=== PATIENT | female | born 1995 | race Caucasian/White ===

== ENCOUNTER 2016-10-27 07:43 | Outpatient (CLI) | payer OTHER ==
--- NOTE | 2016-10-27 09:18 | DIAGNOSTIC IMAGING REPORT ---
PROCEDURE: US ABDOMEN ULTRASOUND-COMPLETE INDICATION: ABD PAIN, initial encounter TECHNIQUE: Simons scale and color Doppler sonographic images of the abdomen were obtained. COMPARISON: Abdominal ultrasound 07/09/2015 FINDINGS: 1.2 cm mobile gallstone. There is no gallbladder wall thickening or pericholecystic fluid. Negative Manjarrez's sign. CBD measures 2.8 mm. Liver and spleen are normal. Pancreas not well visualized. Aorta and IVC are patent. Normal hepatopetal flow. Normal kidneys. Right kidney measures 10.6 cm and left kidney 9.9 cm. IMPRESSION: 1. 1.2 cm gallstone
== END 2016-10-27 23:00 ==
LOC: US SRH 07:43
DX: K80.20 Calculus of gallbladder without cholecystitis without obstruction (principal)

== ENCOUNTER 2016-10-30 21:25 | Emergency (ER) | payer OTHER ==
--- NOTE | 2016-10-30 22:42 | ED ORDER SUMMARY ---
..... Patient: MOISES CANALES OrderSheet [facility] VisitID: [id number] [place] [address] 20y, F Registration Date/Time: 10/30/2016 ORDER SHEET Weight: 78.9 kg Allergies: No Known Drug Allergy GENERAL ORDERS: CBC w Diff Urgent (21:40 10/30/2016 EKoroleva P.A.-C) (Ack 21:42 AMcQuoid ER Tech1) (22:07 JRomanelli R.N.) CMP Urgent (21:40 10/30/2016 EKoroleva P.A.-C) (Ack 21:42 AMcQuoid ER Tech1) (22:07 JRomanelli R.N.) Lipase Urgent (21:40 10/30/2016 EKoroleva P.A.-C) (Ack 21:42 AMcQuoid ER Tech1) (22:07 JRomanelli R.N.) MEDICATION ORDERS: IV FLUIDS: IV NS : initial bolus 1000 mL (1000 mL/hr), then 1000 mL/hr for X1 (NOW); Edwin (21:40 10/30/2016 EKoroleva P.A.-C) (22:08 JRomanelli R.N.) Dilaudid IV 0.5 mg (HIGH ALERT MEDICATION, NOW) (21:57 10/30/2016 EKoroleva P.A.-C) (22:13 JRomanelli R.N.) ORDER SHEET NOTES: [Electronically signed by Joanne Rhodes R.N. (23:06 10/30/2016)] [Electronically signed by Yumiko Garcia P.A.-C (23:12 10/30/2016)] [Electronically locked/signed by Joanne Rhodes R.N. (23:06 10/30/2016)]
--- NOTE | 2016-10-30 22:42 | ED ORDER SUMMARY ---
..... Patient: MOISES CANALES OrderSheet [facility] VisitID: [id number] [place] [address] 20y, F Registration Date/Time: 10/30/2016 ORDER SHEET Weight: 78.9 kg Allergies: No Known Drug Allergy GENERAL ORDERS: CBC w Diff Urgent (21:40 10/30/2016 EKoroleva P.A.-C) (Ack 21:42 AMcQuoid ER Tech1) (22:07 JRomanelli R.N.) CMP Urgent (21:40 10/30/2016 EKoroleva P.A.-C) (Ack 21:42 AMcQuoid ER Tech1) (22:07 JRomanelli R.N.) Lipase Urgent (21:40 10/30/2016 EKoroleva P.A.-C) (Ack 21:42 AMcQuoid ER Tech1) (22:07 JRomanelli R.N.) MEDICATION ORDERS: IV FLUIDS: IV NS : initial bolus 1000 mL (1000 mL/hr), then 1000 mL/hr for X1 (NOW); Edwin (21:40 10/30/2016 EKoroleva P.A.-C) (22:08 JRomanelli R.N.) Dilaudid IV 0.5 mg (HIGH ALERT MEDICATION, NOW) (21:57 10/30/2016 EKoroleva P.A.-C) (22:13 JRomanelli R.N.) ORDER SHEET NOTES: [Electronically signed by Joanne Rhodes R.N. (23:06 10/30/2016)] [Electronically signed by Yumiko Garcia P.A.-C (23:12 10/30/2016)] [Electronically locked/signed by Joanne Rhodes R.N. (23:06 10/30/2016)]
--- NOTE | 2016-10-30 22:42 | ED CLINICAL REPORT ---
Clinical Report - Physicians/Mid [facility] [address] [place] [address] 10/30/2016 21:26 Patient: MOISES CANALES Time Seen: 21:46 Oct 30 2016. Arrived- By private vehicle. Historian- patient. HISTORY OF PRESENT ILLNESS Chief Complaint: ABDOMINAL PAIN. It is described as located in the right upper quadrant and in the upper abdomen and radiating. This started today worsening for 3 days and is still present. The patient has had nausea. (20-year-old female, with pain over the last 2 days, recently seen at an outpatient facility, had ultrasound completed, with history of cholelithiasis, worsening of pain today, with nausea, no associated vomiting, diarrhea. No fevers. No urgency frequency or dysuria. Last [place]. Late September.). Similar symptoms previously: Recent medical care: The patient was seen recently by a health care provider ([facility]). REVIEW OF SYSTEMS No constipation, black stools, difficulty with urination, pain with urination or fever. No chest pain or chills. All systems otherwise negative, except as recorded above. PAST HISTORY Gallstones. SOCIAL HISTORY Never smoker. No alcohol use. ADDITIONAL NOTES The nursing notes have been reviewed. PHYSICAL EXAM Vital Signs: 10/30/2016 21:40 BP: 116/60. HR: 80. RR: 16. O2 saturation: 100%. Temp: 99.1 F. Pain level now: 9/10. Appearance: Alert. Appears to be in pain. Does not appear to be anxious. Patient in mild distress. Eyes: Eyes normal inspection. ENT: Nose normal. Pharynx normal. No pharyngeal erythema or tonsillar exudate. Neck: Normal inspection. No carotid bruit or lymphadenopathy. CVS: Normal heart rate and rhythm. Heart sounds normal. Respiratory: No respiratory distress. Breath sounds normal. No accessory muscle use or decreased air movement. Abdomen: Mild tenderness in the right upper quadrant. Bowel sounds normal. No organomegaly. No mass. Skin: Skin warm. Normal skin color. Neuro: Oriented X 3. LABS, X-RAYS, AND EKG Laboratory Tests: CBC w Diff: (OBEY: 10/30/2016 21:55) ( [facility] 10/30/2016 22:15) Final results Test Result Flag Units (Reference) WHITE BLOOD COUNT 9.2 K/uL (4.5-11.5) RED BLOOD COUNT 4.91 M/uL (4.00-5.20) HEMOGLOBIN 12.9 gm/dL (12.0-16.0) HEMATOCRIT 39.6 % (36.0-46.0) MEAN CELL VOLUME 81 fL (80-100) MEAN CORPUSCULAR HGB 26 pg (26-34) MEAN CORPUSCULAR HGB CONC 33 g/dL (31-37) RED CELL DISTRIBUTION WIDTH 14.3 % (11.6-14.8) PLATELET COUNT 365 K/uL (150-400) LYMPH % 36.6 % (25-40) MONO % 3.4 % (3-14) GRANULOCYTE % 60.0 (53-90) CMP: (OBEY: 10/30/2016 21:55) ( [facility] 10/30/2016 22:36) Final results Test Result Flag Units (Reference) GLUCOSE 111 H mg/dL (70-110) BUN 10 mg/dL (7-18) CREATININE 0.7 mg/dL (0.6-1.3) Estimated GFR >60 mL/min Estimated GFR- >60 mL/min Note: Persistent reduction over 3 months in eGFR<60 mL/min/1.73 m2 defines CKD. Patients with eGFR values>=60 mL/min/1.73 m2 may also have CKD if evidence ofpersistent proteinuria. Additional information may be foundat www.kidney.org. SODIUM 143 mmol/L (136-145) POTASSIUM 3.9 mmol/L (3.5-5.1) CHLORIDE 108 H mmol/L (98-107) CARBON DIOXIDE 23 mmol/L (21-32) CALCIUM 8.9 mg/dL (8.5-10.1) TOTAL PROTEIN 7.1 g/dL (6.4-8.2) ALBUMIN 3.5 g/dL (3.3-5.0) BILIRUBIN, TOTAL 0.2 mg/dL (0.0-1.0) ALKALINE PHOSPHATASE 114 U/L (46-116) AST (SGOT) 14 L U/L (15-37) ALT (SGPT) 26 U/L (12-78) LIPASE 124 U/L (73-393) . Note - Tests: (US prior result: IMPRESSION: 1. 1.2 cm gallstone Electronically Final signed by:Rogers Mcdermott MD 10/27/2016 9:18:15 AM). PROGRESS AND PROCEDURES Course of Care: During the time in the ED, the following DDX were considered: acute surgical abdomen, hemodynamic or metabolic instability, dehydration, gastroenteritis-viral, food borne, or bacterial, food intolerance, irritable or inflammatory bowel, infection, sepsis. 10/30/2016 23:01 BP: 102/55. HR: 88. RR: 14. O2 saturation: 100%. Temp: 97.9 F. Pain level now: 3/10. Patient is stable. Symptoms better. Patient/family counseled. Differential Diagnosis: I considered gastritis, gastroenteritis, acute appendicitis, mesenteric lymphadenitis, diverticulitis, colon cancer, small bowel obstruction, adhesions, gallbladder disease, liver disease, biliary colic, cholecystitis, cholelithiasis, hepatitis, pancreatitis, common bile duct obstruction, splenic injury, splenic rupture, intraabdominal abscess, ascites, spontaneous bacterial peritonitis, urinary tract infection, cystitis, prostatitis, ureterolithiasis, ovarian cyst, pelvic inflammatory disease and pelvic abscess as a possible cause of abdominal pain in this patient. Disposition: Discharged. CLINICAL IMPRESSION Acute abdominal pain of unknown cause. Biliary colic with a single gallstone. No cholecystitis. INSTRUCTIONS No strenuous activity. Rest. Drink plenty of fluids. Avoid fatty and fried/greasy foods. Prescription Medications: Hydrocodone/APAP 5mg / 325mg: take 1 orally every 6 hours as needed for pain. Dispense twelve (12). Zofran (orally disintegrating tablets) 4 mg: take 1 orally every 6 hours for 3 days as needed for nausea. Dispense ten (10). No refill. Substitution is permissible. Follow-up with: Ki Stanley MD, General Surgeon, , [facility], [address] [place] [id number] Follow up. Call for the next available appointment. (Electronically signed by Yumiko Garcia P.A.-C 10/30/2016 23:12)
--- NOTE | 2016-10-30 22:42 | ED NURSING NOTES ---
Clinical Report - Nurses [facility] [address] [place] [address] 10/30/2016 21:26 Patient: MOISES CANALES TRIAGE Triage time 21:40 Oct 30 2016. Acuity: LEVEL 3. Chief Complaint: ABDOMINAL PAIN, NAUSEA and VOMITING. Alert. ADRIANA COMA SCORE: Adriana Coma Scale: 15- eyes open spontaneously (4); best verbal response- oriented x 4 (5); best motor response- obeys commands (6). --21:49 Donato Bowling R.N. 21:40 10/30/16. BP: 116/60. HR: 80. RR: 16. O2 saturation: 100%. Temp: 99.1 F (oral). Pain level now: 06/03. --21:49 Donato Bowling R.N. Weight: 78.9 kg. Height/Length: 65 inches. BMI: 29. Growth Chart Percentile: Weight: 92.9%. Height/Length: 60.2%. --21:44 Donato Bowling R.N. Medications None. --21:45 Donato Bowling R.N. Medication/allergy information source: the patient. --21:49 Donato Bowling R.N. Allergies No Known Drug Allergy. --21:45 Donato Bowling R.N. History Arrived by private vehicle. Historian: patient. Accompanied by friend. Primary physician ([facility] ( Abdominal PainLUQ. Pt states that she had been worked up for gallstone 3 days ago via ultrasound. Pain returned and worsened today). This started today. Onset. (about 1 hour ago). She has had nausea, vomiting, diarrhea and abdominal pain. Treatment COLLECTION CLERK: None. PAST MEDICAL HX: Gallstones. Immunizations: up-to-date. Last normal menstrual period was 3 weeks ago. Denies current . SURGERY HX: No history of previous surgery. SOCIAL HX: Never smoker. No alcohol use or drug use. No recent travel. No infectious disease exposure. No known contact with a sick individual. ABUSE ASSESSMENT: No report of abuse. FALL RISK ASSESSMENT: Fall risk assessment completed. No fall risk identified. NUTRITIONAL RISK ASSESSMENT: The nutritional risk assessment revealed no deficiencies. FUNCTIONAL ASSESSMENT: Functional assessment: no impairments noted. LEARNING NEEDS ASSESSMENT: The learning needs assessment revealed no barriers. SKIN INTEGRITY ASSESSMENT: Skin integrity risk assessment completed. No skin integrity risk identified. --21:49 Donato Bowling R.N. PROBLEMS: Spotting, . Depression. Immunizations. Suicidal Ideation. --21:48 Donato Bowling R.N. Interventions ID band on patient. To treatment room. --21:49 Donato Bowling R.N. PHYSICAL ASSESSMENT Ambulatory to room. GENERAL / NEURO / PSYCH: Alert. Oriented X 4. Appears in pain. HEENT: Mucous membranes are pink. RESPIRATORY: Respirations not labored. CVS: Cardiac rhythm: (RRR). Capillary refill less than 2 seconds. GI / : Abdomen soft. Abdominal tenderness in the right upper quadrant. Bowel sounds within normal limits. SKIN: Skin is warm and dry. --21:50 Donato Bowling R.N. NURSING PROGRESS NOTES Reassurance given. Patient identifiers checked. Call light placed in reach. Side rails up x 1. Bed placed in lowest position. Brakes of bed on. Patient ready for evaluation- chart flagged and ED physician notified. --21:50 Donato Bowling R.N. 22:10/30/2016 Site #1 started via IV in the right forearm with an 20g angiocath, with aseptic technique and good blood return; one attempt. Blood drawn: rainbow set. Labeled in the presence of the patient and sent to the lab. --22:07 Donato Bowling R.N. 22:03 10/30/2016 Started bag #1 1000 mL IV Fluids IV NS (Saline); at 1000 mL/hr over 60 minute(s) via site #1. Allergies verified and confirmed 5 rights. IV patency established. IV site checked: no pain, redness, or swelling. IV flushed thoroughly pre- and post-medication administration. --22:08 Donato Bowling R.N. 22:10/30/2016 Dilaudid (HYDROmorphone HCl PF) IVP 0.5 mg given over 2 minute(s) via site #1. Allergies verified, confirmed 5 rights and sedative warning given. IV patency established. IV site checked: no pain, redness, or swelling. IV flushed thoroughly pre- and post-medication administration. IVP given by RN. --22:13 Donato Bowling R.N. 22:58 10/30/2016 IV Fluids IV NS Discontinued: bag #1 completed upon discharge. Total amount infused: 1000 mL. IV patency established. IV site checked: no pain, redness, or swelling. IV flushed thoroughly. --23:03 Joanne Rhodes R.N. 22:58 10/30/2016 Dilaudid IVP Response: no adverse reaction symptoms have improved the patient feels better. --23:03 Joanne Rhodes R.N. 23:04 10/30/2016 Site #1 removed upon discharge. Manual pressure and bandaid applied. --23:04 Joanne Rhodes R.N. DISPOSITION / DISCHARGE Departure time: 2305 PM. Condition at departure: improved and stable. The goals identified in the patient's plan of care were met. No learning barriers present. Discharge instructions provided and reviewed with the patient. Reviewed medication(s) side effects, precautions, dosing and course information. Prescription(s) given to the patient. Reviewed low fat diet and need for increased fluid intake. Activity restrictions (rest) reviewed. Work note given. Patient verbalized understanding. Written instructions provided in Malagasy. The patient was discharged by the physician review assistant. She was discharged home and accompanied by agriscience technology instructor. She left the Emergency Department ambulatory and via private vehicle. Concrete Truck Driver driving. FALL RISK ASSESSMENT: Fall risk assessment completed. No fall risk identified. --23:06 Joanne Rhodes R.N. 23:01 10/30/16. BP: 102/55 (regular adult cuff) taken on the left arm, via an automated monitor, while sitting. HR: 88. RR: 14. O2 saturation: 100% on room air. Temp: 97.9 F (oral). Pain level now: 12/01. --23:06 Joanne Rhodes R.N. Locked/Released at 10/30/2016 23:06 by Joanne Rhodes R.N.
--- NOTE | 2016-10-30 22:42 | ED NURSING NOTES ---
Clinical Report - Nurses [facility] [address] [place] [address] 10/30/2016 21:26 Patient: MOISES CANALES TRIAGE Triage time 21:40 Oct 30 2016. Acuity: LEVEL 3. Chief Complaint: ABDOMINAL PAIN, NAUSEA and VOMITING. Alert. ADRIANA COMA SCORE: Adriana Coma Scale: 15- eyes open spontaneously (4); best verbal response- oriented x 4 (5); best motor response- obeys commands (6). --21:49 Donato Bowling R.N. 21:40 10/30/16. BP: 116/60. HR: 80. RR: 16. O2 saturation: 100%. Temp: 99.1 F (oral). Pain level now: 06/03. --21:49 Donato Bowling R.N. Weight: 78.9 kg. Height/Length: 65 inches. BMI: 29. Growth Chart Percentile: Weight: 92.9%. Height/Length: 60.2%. --21:44 Donato Bowling R.N. Medications None. --21:45 Donato Bowling R.N. Medication/allergy information source: the patient. --21:49 Donato Bowling R.N. Allergies No Known Drug Allergy. --21:45 Donato Bowling R.N. History Arrived by private vehicle. Historian: patient. Accompanied by friend. Primary physician ([facility]). ( Abdominal PainLUQ. Pt states that she had been worked up for gallstone 3 days ago via ultrasound. Pain returned and worsened today). This started today. Onset. (about 1 hour ago). She has had nausea, vomiting, diarrhea and abdominal pain. Treatment GRINDER HARDBOARD: None. PAST MEDICAL HX: Gallstones. Immunizations: up-to-date. Last normal menstrual period was 3 weeks ago. Denies current . SURGERY HX: No history of previous surgery. SOCIAL HX: Never smoker. No alcohol use or drug use. No recent travel. No infectious disease exposure. No known contact with a sick individual. ABUSE ASSESSMENT: No report of abuse. FALL RISK ASSESSMENT: Fall risk assessment completed. No fall risk identified. NUTRITIONAL RISK ASSESSMENT: The nutritional risk assessment revealed no deficiencies. FUNCTIONAL ASSESSMENT: Functional assessment: no impairments noted. LEARNING NEEDS ASSESSMENT: The learning needs assessment revealed no barriers. SKIN INTEGRITY ASSESSMENT: Skin integrity risk assessment completed. No skin integrity risk identified. --21:49 Donato Bowling R.N. PROBLEMS: Spotting, . Depression. Immunizations. Suicidal Ideation. --21:48 Donato Bowling R.N. Interventions ID band on patient. To treatment room. --21:49 Donato Bowling R.N. PHYSICAL ASSESSMENT Ambulatory to room. GENERAL / NEURO / PSYCH: Alert. Oriented X 4. Appears in pain. HEENT: Mucous membranes are pink. RESPIRATORY: Respirations not labored. CVS: Cardiac rhythm: (RRR). Capillary refill less than 2 seconds. GI / : Abdomen soft. Abdominal tenderness in the right upper quadrant. Bowel sounds within normal limits. SKIN: Skin is warm and dry. --21:50 Donato Bowling R.N. NURSING PROGRESS NOTES Reassurance given. Patient identifiers checked. Call light placed in reach. Side rails up x 1. Bed placed in lowest position. Brakes of bed on. Patient ready for evaluation- chart flagged and ED physician notified. --21:50 Donato Bowling R.N. 22:10/30/2016 Site #1 started via IV in the right forearm with an 20g angiocath, with aseptic technique and good blood return; one attempt. Blood drawn: rainbow set. Labeled in the presence of the patient and sent to the lab. --22:07 Donato Bowling R.N. 22:03 10/30/2016 Started bag #1 1000 mL IV Fluids IV NS (Saline); at 1000 mL/hr over 60 minute(s) via site #1. Allergies verified and confirmed 5 rights. IV patency established. IV site checked: no pain, redness, or swelling. IV flushed thoroughly pre- and post-medication administration. --22:08 Donato Bowling R.N. 22:10/30/2016 Dilaudid (HYDROmorphone HCl PF) IVP 0.5 mg given over 2 minute(s) via site #1. Allergies verified, confirmed 5 rights and sedative warning given. IV patency established. IV site checked: no pain, redness, or swelling. IV flushed thoroughly pre- and post-medication administration. IVP given by RN. --22:13 Donato Bowling R.N. 22:58 10/30/2016 IV Fluids IV NS Discontinued: bag #1 completed upon discharge. Total amount infused: 1000 mL. IV patency established. IV site checked: no pain, redness, or swelling. IV flushed thoroughly. --23:03 Joanne Rhodes R.N. 22:58 10/30/2016 Dilaudid IVP Response: no adverse reaction symptoms have improved the patient feels better. --23:03 Joanne Rhodes R.N. 23:04 10/30/2016 Site #1 removed upon discharge. Manual pressure and bandaid applied. --23:04 Joanne Rhodes R.N. DISPOSITION / DISCHARGE Departure time: 2305 PM. Condition at departure: improved and stable. The goals identified in the patient's plan of care were met. No learning barriers present. Discharge instructions provided and reviewed with the patient. Reviewed medication(s) side effects, precautions, dosing and course information. Prescription(s) given to the patient. Reviewed low fat diet and need for increased fluid intake. Activity restrictions (rest) reviewed. Work note given. Patient verbalized understanding. Written instructions provided in Cypriot. The patient was discharged by the physician per diem physical therapist assistant. She was discharged home and accompanied by support merchandiser. She left the Emergency Department ambulatory and via private vehicle. Embossing Tool Setter driving. FALL RISK ASSESSMENT: Fall risk assessment completed. No fall risk identified. --23:06 Joanne Rhodes R.N. 23:01 10/30/16. BP: 102/55 (regular adult cuff) taken on the left arm, via an automated monitor, while sitting. HR: 88. RR: 14. O2 saturation: 100% on room air. Temp: 97.9 F (oral). Pain level now: 12/01. --23:06 Joanne Rhodes R.N. Locked/Released at 10/30/2016 23:06 by Joanne Rhodes R.N.
--- NOTE | 2016-10-30 22:42 | ED CLINICAL REPORT ---
Clinical Report - Physicians/Mid Levels [facility] [address] [place] [address] 10/30/2016 21:26 Patient: MOISES CANALES Time Seen: 21:46 Oct 30 2016. Arrived- By private vehicle. Historian- patient. HISTORY OF PRESENT ILLNESS Chief Complaint: ABDOMINAL PAIN. It is described as located in the right upper quadrant and in the upper abdomen and radiating. This started today worsening for 3 days and is still present. The patient has had nausea. (20-year-old female, with pain over the last 2 days, recently seen at an outpatient facility, had ultrasound completed, with history of cholelithiasis, worsening of pain today, with nausea, no associated vomiting, diarrhea. No fevers. No urgency frequency or dysuria. Last [place]. Late September.). Similar symptoms previously: Recent medical care: The patient was seen recently by a health care provider ([facility] on the and had us). REVIEW OF SYSTEMS No constipation, black stools, difficulty with urination, pain with urination or fever. No chest pain or chills. All systems otherwise negative, except as recorded above. PAST HISTORY Gallstones. SOCIAL HISTORY Never smoker. No alcohol use. ADDITIONAL NOTES The nursing notes have been reviewed. PHYSICAL EXAM Vital Signs: 10/30/2016 21:40 BP: 116/60. HR: 80. RR: 16. O2 saturation: 100%. Temp: 99.1 F. Pain level now: 9/10. Appearance: Alert. Appears to be in pain. Does not appear to be anxious. Patient in mild distress. Eyes: Eyes normal inspection. ENT: Nose normal. Pharynx normal. No pharyngeal erythema or tonsillar exudate. Neck: Normal inspection. No carotid bruit or lymphadenopathy. CVS: Normal heart rate and rhythm. Heart sounds normal. Respiratory: No respiratory distress. Breath sounds normal. No accessory muscle use or decreased air movement. Abdomen: Mild tenderness in the right upper quadrant. Bowel sounds normal. No organomegaly. No mass. Skin: Skin warm. Normal skin color. Neuro: Oriented X 3. LABS, X-RAYS, AND EKG Laboratory Tests: CBC w Diff: (OBEY: 10/30/2016 21:55) ( [facility] 10/30/2016 22:15) Final results Test Result Flag Units (Reference) WHITE BLOOD COUNT 9.2 K/uL (4.5-11.5) RED BLOOD COUNT 4.91 M/uL (4.00-5.20) HEMOGLOBIN 12.9 gm/dL (12.0-16.0) HEMATOCRIT 39.6 % (36.0-46.0) MEAN CELL VOLUME 81 fL (80-100) MEAN CORPUSCULAR HGB 26 pg (26-34) MEAN CORPUSCULAR HGB CONC 33 g/dL (31-37) RED CELL DISTRIBUTION WIDTH 14.3 % (11.6-14.8) PLATELET COUNT 365 K/uL (150-400) LYMPH % 36.6 % (25-40) MONO % 3.4 % (3-14) GRANULOCYTE % 60.0 (53-90) CMP: (OBEY: 10/30/2016 21:55) ( [facility] 10/30/2016 22:36) Final results Test Result Flag Units (Reference) GLUCOSE 111 H mg/dL (70-110) BUN 10 mg/dL (7-18) CREATININE 0.7 mg/dL (0.6-1.3) Estimated GFR >60 mL/min Estimated GFR- >60 mL/min Note: Persistent reduction over 3 months in eGFR<60 mL/min/1.73 m2 defines CKD. Patients with eGFR values>=60 mL/min/1.73 m2 may also have CKD if evidence ofpersistent proteinuria. Additional information may be foundat www.[email or web address].org. SODIUM 143 mmol/L (136-145) POTASSIUM 3.9 mmol/L (3.5-5.1) CHLORIDE 108 H mmol/L (98-107) CARBON DIOXIDE 23 mmol/L (21-32) CALCIUM 8.9 mg/dL (8.5-10.1) TOTAL PROTEIN 7.1 g/dL (6.4-8.2) ALBUMIN 3.5 g/dL (3.3-5.0) BILIRUBIN, TOTAL 0.2 mg/dL (0.0-1.0) ALKALINE PHOSPHATASE 114 U/L (46-116) AST (SGOT) 14 L U/L (15-37) ALT (SGPT) 26 U/L (12-78) LIPASE 124 U/L (73-393) . Note - Tests: (US prior result: IMPRESSION: 1. 1.2 cm gallstone Electronically Final signed by:Rogers Mcdermott MD 10/27/2016 9:18:15 AM). PROGRESS AND PROCEDURES Course of Care: During the time in the ED, the following DDX were considered: acute surgical abdomen, hemodynamic or metabolic instability, dehydration, gastroenteritis-viral, food borne, or bacterial, food intolerance, irritable or inflammatory bowel, infection, sepsis. 10/30/2016 23:01 BP: 102/55. HR: 88. RR: 14. O2 saturation: 100%. Temp: 97.9 F. Pain level now: 3/10. Patient is stable. Symptoms better. Patient/family counseled. Differential Diagnosis: I considered gastritis, gastroenteritis, acute appendicitis, mesenteric lymphadenitis, diverticulitis, colon cancer, small bowel obstruction, adhesions, gallbladder disease, liver disease, biliary colic, cholecystitis, cholelithiasis, hepatitis, pancreatitis, common bile duct obstruction, splenic injury, splenic rupture, intraabdominal abscess, ascites, spontaneous bacterial peritonitis, urinary tract infection, cystitis, prostatitis, ureterolithiasis, ovarian cyst, pelvic inflammatory disease and pelvic abscess as a possible cause of abdominal pain in this patient. Disposition: Discharged. CLINICAL IMPRESSION Acute abdominal pain of unknown cause. Biliary colic with a single gallstone. No cholecystitis. INSTRUCTIONS No strenuous activity. Rest. Drink plenty of fluids. Avoid fatty and fried/greasy foods. Prescription Medications: Hydrocodone/APAP 5mg / 325mg: take 1 orally every 6 hours as needed for pain. Dispense twelve (12). Zofran (orally disintegrating tablets) 4 mg: take 1 orally every 6 hours for 3 days as needed for nausea. Dispense ten (10). No refill. Substitution is permissible. Follow-up with: Ki Stanley MD, General Surgeon, , [facility], [address] [place] [id number] Follow up. Call for the next available appointment. (Electronically signed by Yumiko Garcia P.A.-C 10/30/2016 23:12)
--- NOTE | 2016-10-30 23:12 | ED DISCHARGE INSTRUCTIONS ---
Patient: MOISES CANALES General Instructions [facility] VisitID: [id number] [place], [place] [id number], F Registration Date/Time: 10/30/2016 Acute abdominal pain of unknown cause. Biliary colic with a single gallstone. No cholecystitis. INSTRUCTIONS No strenuous activity. Rest. Drink plenty of fluids. Avoid fatty and fried/greasy foods. Prescription Medications: Hydrocodone/APAP 5mg / 325mg: take 1 orally every 6 hours as needed for pain. Dispense twelve (12). Zofran (orally disintegrating tablets) 4 mg: take 1 orally every 6 hours for 3 days as needed for nausea. Dispense ten (10). No refill. Substitution is permissible. Follow-up with: Ki Stanley MD, General Surgeon, , [facility], [address] [place] [address] Follow up. Call for the next available appointment. ADDITIONAL INFORMATION Abdominal Pain,Uncertain Cause [Male] Based on your visit today, the exact cause of your abdominalpain is not clear. Your exam and tests do not indicate a dangerous cause at this time. However, the signs of a serious problem may take more time to appear. Although your evaluation was reassuring today, sometimes early in the course of many conditions, exam and lab tests can appear normal. Therefore, it is important for you to watch for any new symptoms or worsening of your condition. Causes It may not be obvious what caused your symptoms. Pay attention to things that do seem to make your symptoms worse or better and discuss this with your doctor when you follow up. Diagnosis The evaluation of abdominal pain in the emergency department may onlyrequire an exam by the doctor or it may include blood, urine or imaging studies, depending on many factors. Sometimes exams and tests can identify a cause but in many cases, a clear cause is not found. Further testing at follow up visits may help to suggest a clear diagnosis. Home Care Rest as much as possible until your next exam. Try to avoid any medications (unless otherwise directed by your doctor), foods, activities, or other factors that you may have contributed to your symptoms. Try to eat foods that you know that you have tolerated well in the past. Certain diets may be recommended for some conditions that cause abdominal pain. However, since the cause of your symptoms may not be clear, discuss your diet more with your primary care provider or specialist for further recommendations. Eating several small meals per day as opposed to 2 or 3 larger meals may help. Monitor closely for anything that may make your symptoms worse or better. Pay close attention to symptoms below that may indicate worsening of your condition. Follow Up and Precautions See your doctoras instructed or sooneror if your symptoms are not improving.In some cases, you may need more testing. When to Seek Medical Attention Contact your doctor or see medical attention ifany of the following occur: Pain is becoming worse You are unable to take your medications due to excessive vomiting Swelling of the abdomen Fever of 100.4F (38C) or higher, or as directed by your health care provider Blood in vomit or bowel movements (dark red or black color) Jaundice (yellow color of eyes and skin) New onset of weakness, dizziness or fainting New onset of chest, arm, back, neck or jaw pain GallstonesWith Biliary Colic [Confirmed Dx] The abdominal pain that you have today is due to spasm of the gallbladder. The gallbladder is a small sac under the liver which stores and releases bile. Bile is a fluid that aids in the digestion of fat. A gallstone may form inside the gallbladder and block the flow of bile fluid. This causes mild to severe crampy pain in the mid or right upper abdomen with nausea and vomiting. Home Care: Rest in bed and follow a clear liquid diet until feeling better. If pain or nausea medicine was given to help with your symptoms, take these as directed. Fat in your diet makes the gallbladder contract and may cause increased pain. Therefore, avoid fat in your diet over the next two days and follow a low-fat diet after that. If you are overweight, a low-fat diet will also help you lose weight. Follow Up with your doctor. There is a 50% chance that you will have another episode of pain from your gallstones during the next 2 years. Removal of the gallbladder is the treatment of choice to prevent this. Schedule an appointment with your own doctor during the next week to discuss the treatment options. Get Prompt Medical Attention if any of the following occur: Pain gets worse or moves to the right lower abdomen Repeated vomiting Swelling of the abdomen Pain lasts over 6 hours Fever of 100.4F (38C) or higher, or as directed by your healthcare provider Weakness, dizziness or fainting Dark urine or light colored stools Yellow color of the skin or eyes Chest, arm, back, neck or jaw pain Hydrocodone Bitartrate, Acetaminophen Oral tablet What is this medicine? ACETAMINOPHEN; HYDROCODONE (a set a ARLINE erin fen; catie droe KOE done) is a pain reliever. It is used to treat mild to moderate pain. How should I use this medicine? Take this medicine by mouth. Swallow it with a full glass of water. Follow the directions on the prescription label. If the medicine upsets your stomach, take the medicine with food or milk. Do not take more than you are told to take. Talk to your dental detail representative regarding the use of this medicine in children. This medicine is not approved for use in children. What side effects may I notice from receiving this medicine? Side effects that you should report to your doctor or health palliative care physician as soon as possible: allergic reactions like skin rash, itching or hives, swelling of the face, lips, or tongue breathing problems confusion feeling faint or lightheaded, falls stomach pain yellowing of the eyes or skin Side effects that usually do not require medical attention (report to your doctor or health palliative care physician if they continue or are bothersome): nausea, vomiting stomach upset What may interact with this medicine? alcohol antihistamines isoniazid medicines for depression, anxiety, or psychotic disturbances medicines for sleep muscle relaxants naltrexone narcotic medicines (opiates) for pain phenobarbital ritonavir tramadol What if I miss a dose? If you miss a dose, take it as soon as you can. If it is almost time for your next dose, take only that dose. Do not take double or extra doses. Where should I keep my medicine? Keep out of the reach of children. This medicine can be abused. Keep your medicine in a safe place to protect it from theft. Do not share this medicine with anyone. Selling or giving away this medicine is dangerous and against the law. Store at room temperature between 15 and 30 degrees C (59 and 86 degrees F). Protect from light. Keep container tightly closed. Throw away any unused medicine after the expiration date. Discard unused medicine and used packaging carefully. Pets and children can be harmed if they find used or lost packages. What should I tell my health care provider before I take this medicine? They need to know if you have any of these conditions: brain tumor Crohn's disease, inflammatory bowel disease, or ulcerative colitis drink more than 3 alcohol-containing drinks per day drug abuse or addiction head injury heart or circulation problems kidney disease or problems going to the bathroom liver disease lung disease, asthma, or breathing problems an unusual or allergic reaction to acetaminophen, hydrocodone, other opioid analgesics, other medicines, foods, dyes, or preservatives or trying to get breast-feeding What should I watch for while using this medicine? Tell your doctor or health palliative care physician if your pain does not go away, if it gets worse, or if you have new or a different type of pain. You may develop tolerance to the medicine. Tolerance means that you will need a higher dose of the medicine for pain relief. Tolerance is normal and is expected if you take the medicine for a long time. Do not suddenly stop taking your medicine because you may develop a severe reaction. Your body becomes used to the medicine. This does NOT mean you are addicted. Addiction is a behavior related to getting and using a drug for a non-medical reason. If you have pain, you have a medical reason to take pain medicine. Your doctor will tell you how much medicine to take. If your doctor wants you to stop the medicine, the dose will be slowly lowered over time to avoid any side effects. You may get drowsy or dizzy when you first start taking the medicine or change doses. Do not drive, use machinery, or do anything that may be dangerous until you know how the medicine affects you. Stand or sit up slowly. There are different types of narcotic medicines (opiates) for pain. If you take more than one type at the same time, you may have more side effects. Give your health care provider a list of all medicines you use. Your doctor will tell you how much medicine to take. Do not take more medicine than directed. Call emergency for help if you have problems breathing. The medicine will cause constipation. Try to have a bowel movement at least every 2 to 3 days. If you do not have a bowel movement for 3 days, call your doctor or health palliative care physician. Too much acetaminophen can be very dangerous. Do not take Tylenol (acetaminophen) or medicines that contain acetaminophen with this medicine. Many non-prescription medicines contain acetaminophen. Always read the labels carefully. Ondansetron Hydrochloride Oral tablet What is this medicine? ONDANSETRON (on YANCY se yasmani) is used to treat nausea and vomiting caused by chemotherapy. It is also used to prevent or treat nausea and vomiting after surgery. How should I use this medicine? Take this medicine by mouth with a glass of water. Follow the directions on your prescription label. Take your doses at regular intervals. Do not take your medicine more often than directed. Talk to your dental detail representative regarding the use of this medicine in children. Special care may be needed. What side effects may I notice from receiving this medicine? Side effects that you should report to your doctor or health palliative care physician as soon as possible: allergic reactions like skin rash, itching or hives, swelling of the face, lips or tongue breathing problems dizziness fast or irregular heartbeat feeling faint or lightheaded, falls fever and chills swelling of the hands or feet tightness in the chest Side effects that usually do not require medical attention (report to your doctor or health palliative care physician if they continue or are bothersome): constipation or diarrhea headache What may interact with this medicine? Do not take this medicine with any of the following medications: -apomorphine -cisapride -dofetilide -dronedarone -pimozide -thioridazine -ziprasidone This medicine may also interact with the following medications: -carbamazepine -phenytoin -rifampicin -tramadol -other medicines that prolong the QT interval (cause an abnormal heart rhythm) What if I miss a dose? If you miss a dose, take it as soon as you can. If it is almost time for your next dose, take only that dose. Do not take double or extra doses. Where should I keep my medicine? Keep out of the reach of children. Store between 2 and 30 degrees C (36 and 86 degrees F). Throw away any unused medicine after the expiration date. What should I tell my health care provider before I take this medicine? They need to know if you have any of these conditions: heart disease history of irregular heartbeat liver disease low levels of magnesium or potassium in the blood an unusual or allergic reaction to ondansetron, granisetron, other medicines, foods, dyes, or preservatives or trying to get breast-feeding What should I watch for while using this medicine? Check with your doctor or health palliative care physician right away if you have any sign of an allergic reaction. You have been given the following additional information: Abdominal Pain, Unknown Cause, (Male) Biliary Colic With Gallstone (Confirmed) Hydrocodone Bitartrate, Acetaminophen Oral tablet Ondansetron Hydrochloride Oral tablet No strenuous activity. Rest. (Electronically signed by Yumiko Garcia P.A.-C 10/30/2016 23:12)
--- NOTE | 2016-10-30 23:12 | ED DISCHARGE INSTRUCTIONS ---
Patient: MOISES CANALES General Instructions [facility] VisitID: [id number] [place], [place] [id number] 20y, F Registration Date/Time: 10/30/2016 Acute abdominal pain of unknown cause. Biliary colic with a single gallstone. No cholecystitis. INSTRUCTIONS No strenuous activity. Rest. Drink plenty of fluids. Avoid fatty and fried/greasy foods. Prescription Medications: Hydrocodone/APAP 5mg / 325mg: take 1 orally every 6 hours as needed for pain. Dispense twelve (12). Zofran (orally disintegrating tablets) 4 mg: take 1 orally every 6 hours for 3 days as needed for nausea. Dispense ten (10). No refill. Substitution is permissible. Follow-up with: Ki Stanley MD, General Surgeon, , [facility], [address] [place] [address] Follow up. Call for the next available appointment. ADDITIONAL INFORMATION Abdominal Pain,Uncertain Cause [Male] Based on your visit today, the exact cause of your abdominalpain is not clear. Your exam and tests do not indicate a dangerous cause at this time. However, the signs of a serious problem may take more time to appear. Although your evaluation was reassuring today, sometimes early in the course of many conditions, exam and lab tests can appear normal. Therefore, it is important for you to watch for any new symptoms or worsening of your condition. Causes It may not be obvious what caused your symptoms. Pay attention to things that do seem to make your symptoms worse or better and discuss this with your doctor when you follow up. Diagnosis The evaluation of abdominal pain in the emergency department may onlyrequire an exam by the doctor or it may include blood, urine or imaging studies, depending on many factors. Sometimes exams and tests can identify a cause but in many cases, a clear cause is not found. Further testing at follow up visits may help to suggest a clear diagnosis. Home Care Rest as much as possible until your next exam. Try to avoid any medications (unless otherwise directed by your doctor), foods, activities, or other factors that you may have contributed to your symptoms. Try to eat foods that you know that you have tolerated well in the past. Certain diets may be recommended for some conditions that cause abdominal pain. However, since the cause of your symptoms may not be clear, discuss your diet more with your primary care provider or specialist for further recommendations. Eating several small meals per day as opposed to 2 or 3 larger meals may help. Monitor closely for anything that may make your symptoms worse or better. Pay close attention to symptoms below that may indicate worsening of your condition. Follow Up and Precautions See your doctoras instructed or sooneror if your symptoms are not improving.In some cases, you may need more testing. When to Seek Medical Attention Contact your doctor or see medical attention ifany of the following occur: Pain is becoming worse You are unable to take your medications due to excessive vomiting Swelling of the abdomen Fever of 100.4F (38C) or higher, or as directed by your health care provider Blood in vomit or bowel movements (dark red or black color) Jaundice (yellow color of eyes and skin) New onset of weakness, dizziness or fainting New onset of chest, arm, back, neck or jaw pain GallstonesWith Biliary Colic [Confirmed Dx] The abdominal pain that you have today is due to spasm of the gallbladder. The gallbladder is a small sac under the liver which stores and releases bile. Bile is a fluid that aids in the digestion of fat. A gallstone may form inside the gallbladder and block the flow of bile fluid. This causes mild to severe crampy pain in the mid or right upper abdomen with nausea and vomiting. Home Care: Rest in bed and follow a clear liquid diet until feeling better. If pain or nausea medicine was given to help with your symptoms, take these as directed. Fat in your diet makes the gallbladder contract and may cause increased pain. Therefore, avoid fat in your diet over the next two days and follow a low-fat diet after that. If you are overweight, a low-fat diet will also help you lose weight. Follow Up with your doctor. There is a 50% chance that you will have another episode of pain from your gallstones during the next 2 years. Removal of the gallbladder is the treatment of choice to prevent this. Schedule an appointment with your own doctor during the next week to discuss the treatment options. Get Prompt Medical Attention if any of the following occur: Pain gets worse or moves to the right lower abdomen Repeated vomiting Swelling of the abdomen Pain lasts over 6 hours Fever of 100.4F (38C) or higher, or as directed by your healthcare provider Weakness, dizziness or fainting Dark urine or light colored stools Yellow color of the skin or eyes Chest, arm, back, neck or jaw pain Hydrocodone Bitartrate, Acetaminophen Oral tablet What is this medicine? ACETAMINOPHEN; HYDROCODONE (a set a ARLINE erin fen; catie droe KOE done) is a pain reliever. It is used to treat mild to moderate pain. How should I use this medicine? Take this medicine by mouth. Swallow it with a full glass of water. Follow the directions on the prescription label. If the medicine upsets your stomach, take the medicine with food or milk. Do not take more than you are told to take. Talk to your goodwill ambassador regarding the use of this medicine in children. This medicine is not approved for use in children. What side effects may I notice from receiving this medicine? Side effects that you should report to your doctor or health day care worker as soon as possible: allergic reactions like skin rash, itching or hives, swelling of the face, lips, or tongue breathing problems confusion feeling faint or lightheaded, falls stomach pain yellowing of the eyes or skin Side effects that usually do not require medical attention (report to your doctor or health day care worker if they continue or are bothersome): nausea, vomiting stomach upset What may interact with this medicine? alcohol antihistamines isoniazid medicines for depression, anxiety, or psychotic disturbances medicines for sleep muscle relaxants naltrexone narcotic medicines (opiates) for pain phenobarbital ritonavir tramadol What if I miss a dose? If you miss a dose, take it as soon as you can. If it is almost time for your next dose, take only that dose. Do not take double or extra doses. Where should I keep my medicine? Keep out of the reach of children. This medicine can be abused. Keep your medicine in a safe place to protect it from theft. Do not share this medicine with anyone. Selling or giving away this medicine is dangerous and against the law. Store at room temperature between 15 and 30 degrees C (59 and 86 degrees F). Protect from light. Keep container tightly closed. Throw away any unused medicine after the expiration date. Discard unused medicine and used packaging carefully. Pets and children can be harmed if they find used or lost packages. What should I tell my health care provider before I take this medicine? They need to know if you have any of these conditions: brain tumor Crohn's disease, inflammatory bowel disease, or ulcerative colitis drink more than 3 alcohol-containing drinks per day drug abuse or addiction head injury heart or circulation problems kidney disease or problems going to the bathroom liver disease lung disease, asthma, or breathing problems an unusual or allergic reaction to acetaminophen, hydrocodone, other opioid analgesics, other medicines, foods, dyes, or preservatives or trying to get breast-feeding What should I watch for while using this medicine? Tell your doctor or health day care worker if your pain does not go away, if it gets worse, or if you have new or a different type of pain. You may develop tolerance to the medicine. Tolerance means that you will need a higher dose of the medicine for pain relief. Tolerance is normal and is expected if you take the medicine for a long time. Do not suddenly stop taking your medicine because you may develop a severe reaction. Your body becomes used to the medicine. This does NOT mean you are addicted. Addiction is a behavior related to getting and using a drug for a non-medical reason. If you have pain, you have a medical reason to take pain medicine. Your doctor will tell you how much medicine to take. If your doctor wants you to stop the medicine, the dose will be slowly lowered over time to avoid any side effects. You may get drowsy or dizzy when you first start taking the medicine or change doses. Do not drive, use machinery, or do anything that may be dangerous until you know how the medicine affects you. Stand or sit up slowly. There are different types of narcotic medicines (opiates) for pain. If you take more than one type at the same time, you may have more side effects. Give your health care provider a list of all medicines you use. Your doctor will tell you how much medicine to take. Do not take more medicine than directed. Call emergency for help if you have problems breathing. The medicine will cause constipation. Try to have a bowel movement at least every 2 to 3 days. If you do not have a bowel movement for 3 days, call your doctor or health day care worker. Too much acetaminophen can be very dangerous. Do not take Tylenol (acetaminophen) or medicines that contain acetaminophen with this medicine. Many non-prescription medicines contain acetaminophen. Always read the labels carefully. Ondansetron Hydrochloride Oral tablet What is this medicine? ONDANSETRON (on YANCY se yasmani) is used to treat nausea and vomiting caused by chemotherapy. It is also used to prevent or treat nausea and vomiting after surgery. How should I use this medicine? Take this medicine by mouth with a glass of water. Follow the directions on your prescription label. Take your doses at regular intervals. Do not take your medicine more often than directed. Talk to your goodwill ambassador regarding the use of this medicine in children. Special care may be needed. What side effects may I notice from receiving this medicine? Side effects that you should report to your doctor or health day care worker as soon as possible: allergic reactions like skin rash, itching or hives, swelling of the face, lips or tongue breathing problems dizziness fast or irregular heartbeat feeling faint or lightheaded, falls fever and chills swelling of the hands or feet tightness in the chest Side effects that usually do not require medical attention (report to your doctor or health day care worker if they continue or are bothersome): constipation or diarrhea headache What may interact with this medicine? Do not take this medicine with any of the following medications: -apomorphine -cisapride -dofetilide -dronedarone -pimozide -thioridazine -ziprasidone This medicine may also interact with the following medications: -carbamazepine -phenytoin -rifampicin -tramadol -other medicines that prolong the QT interval (cause an abnormal heart rhythm) What if I miss a dose? If you miss a dose, take it as soon as you can. If it is almost time for your next dose, take only that dose. Do not take double or extra doses. Where should I keep my medicine? Keep out of the reach of children. Store between 2 and 30 degrees C (36 and 86 degrees F). Throw away any unused medicine after the expiration date. What should I tell my health care provider before I take this medicine? They need to know if you have any of these conditions: heart disease history of irregular heartbeat liver disease low levels of magnesium or potassium in the blood an unusual or allergic reaction to ondansetron, granisetron, other medicines, foods, dyes, or preservatives or trying to get breast-feeding What should I watch for while using this medicine? Check with your doctor or health day care worker right away if you have any sign of an allergic reaction. You have been given the following additional information: Abdominal Pain, Unknown Cause, (Male) Biliary Colic With Gallstone (Confirmed) Hydrocodone Bitartrate, Acetaminophen Oral tablet Ondansetron Hydrochloride Oral tablet No strenuous activity. Rest. (Electronically signed by Yumiko Garcia P.A.-C 10/30/2016 23:12)
--- NOTE | 2016-10-30 23:12 | ED MED RECONCILIATION SUMMARY ---
Patient: MOISES CANALES Medication Reconciliation Report [facility] VisitID: [id number] [place] [address] 20y, F Registration Date/Time: 10/30/2016 Weight: 78.9 kg Height/Length: 65 in. BMI: 29.0 ALLERGIES: No Known Drug Allergy The patient's Home Medications are listed below: NONE. The source(s) of the original Home Medication information: patient The following Medications were given to the patient in the Emergency Department: IV NS IV Fluids bolus 0, then 1000 mL/hr, administered: 10/30/2016 10:03:00 PM Dilaudid [IVP] IVP 0.5 mg, administered: 10/30/2016 10:08:00 PM The following Medications were prescribed to the patient: Hydrocodone/APAP 5mg / 325mg: take 1 orally every 6 hours as needed for pain. Dispense twelve (12). -- Yumiko Garcia P.AJessica Zofran (orally disintegrating tablets) 4 mg: take 1 orally every 6 hours for 3 days as needed for nausea. Dispense ten (10). No refill. Substitution is permissible. -- Yumiko Garcia, P.ADevon-Zachary
--- NOTE | 2016-10-30 23:12 | ED MAR SUMMARY ---
..... Medication Administration Record [facility] [address] [place] [address] Patient: MOISES CANALES Visit ID: [id number] 20y, F Weight: 78.9 kg Height/Length: 65 in BMI: 29 ALLERGIES: No Known Drug Allergy Start 22:03 10/30/2016 Donato Bowling RDevonN., Stop 22:58 10/30/2016 Joanne Rhodes RJerson. Medication Administered: IV NS (SALINE), Dose: IV Fluids over 60 minute(s), Rate: 1000 mL/hr, Dispensed: 1000 mL bag, Site: #1 right forearm. Medication Ordered: IV NS : initial bolus 1000 mL (1000 mL/hr), then 1000 mL/hr for X1 (NOW); Edwin. Given 22:08 10/30/2016 Donato Bowling, R.N. Medication Administered: DILAUDID [IVP] (HYDROMORPHONE HCL PF), Dose: 0.5 mg IVP over 2 minute(s), Site: #1 right forearm. Medication Ordered: Dilaudid IV 0.5 mg (HIGH ALERT MEDICATION, NOW).
--- NOTE | 2016-10-30 23:12 | ED MAR SUMMARY ---
..... Medication Administration Record [facility] [address] [place] [address] Patient: MOISES CANALES Visit ID: [id number] 20y, F Weight: 78.9 kg Height/Length: 65 in BMI: 29 ALLERGIES: No Known Drug Allergy Start 22:03 10/30/2016 Donato Bowling RDevonN., Stop 22:58 10/30/2016 Joanne Rhodes RJerson. Medication Administered: IV NS (SALINE), Dose: IV Fluids over 60 minute(s), Rate: 1000 mL/hr, Dispensed: 1000 mL bag, Site: #1 right forearm. Medication Ordered: IV NS : initial bolus 1000 mL (1000 mL/hr), then 1000 mL/hr for X1 (NOW); Edwin. Given 22:08 10/30/2016 Donato Bowling, R.N. Medication Administered: DILAUDID [IVP] (HYDROMORPHONE HCL PF), Dose: 0.5 mg IVP over 2 minute(s), Site: #1 right forearm. Medication Ordered: Dilaudid IV 0.5 mg (HIGH ALERT MEDICATION, NOW).
--- NOTE | 2016-10-30 23:12 | ED MED RECONCILIATION SUMMARY ---
Patient: MOISES CANALES Medication Reconciliation Report [facility] VisitID: [id number] [place] [address] 20y, F Registration Date/Time: 10/30/2016 Weight: 78.9 kg Height/Length: 65 in. BMI: 29.0 ALLERGIES: No Known Drug Allergy The patient's Home Medications are listed below: NONE. The source(s) of the original Home Medication information: patient The following Medications were given to the patient in the Emergency Department: IV NS IV Fluids bolus 0, then 1000 mL/hr, administered: 10/30/2016 10:03:00 PM Dilaudid [IVP] IVP 0.5 mg, administered: 10/30/2016 10:08:00 PM The following Medications were prescribed to the patient: Hydrocodone/APAP 5mg / 325mg: take 1 orally every 6 hours as needed for pain. Dispense twelve (12). -- Yumiko Garcia P.AJessica Zofran (orally disintegrating tablets) 4 mg: take 1 orally every 6 hours for 3 days as needed for nausea. Dispense ten (10). No refill. Substitution is permissible. -- Yumiko Garcia, P.ADevon-Zachary
== END 2016-10-30 23:05 | disposition home or self-care (01) ==
LOC: ED SRH 21:25
DX: R10.10 Upper abdominal pain, unspecified (principal); K80.51 Calculus of bile duct without cholangitis or cholecystitis with obstruction
CPT/HCPCS: 90100; 92235; 95059

== ENCOUNTER 2016-11-07 23:06 | Emergency (ER) | payer OTHER ==
--- NOTE | 2016-11-08 01:10 | ED NURSING NOTES ---
Clinical Report - Nurses [facility] [address] [place] [address] 11/07/2016 23:06 Patient: MOISES CANALES TRIAGE Triage time 23:15 Nov 07 2016. Acuity: LEVEL 3. Chief Complaint: ABDOMINAL PAIN. 23:19 11/07/16. SEPSIS SCREEN: Sepsis Screen: negative. Negative (no infection suspected/documented). ADRIANA COMA SCORE: Adriana Coma Scale: 15- eyes open spontaneously (4); best verbal response- oriented x 4 (5); best motor response- obeys commands (6). --23:19 Yolanda Faye R.N. 23:15 11/07/16. BP: 120/69. HR: 79. RR: 15. O2 saturation: 98%. Temp: 98.8 F. Pain level now: 07/03. --23:19 Yolanda Faye R.N. Weight: 77.1 kg stated. Height/Length: 65 inches Per Patient. BMI: 28.3. Growth Chart Percentile: Weight: 91.6%. Height/Length: 60.2%. --23:15 Yolanda Faye R.N. Medications None. --23:16 Yolanda Faye R.N. Medication/allergy information source: the patient. --23:19 Yolanda Faye R.N. Allergies No Known Drug Allergy. --23:16 Yolanda Faye R.N. History Arrived by private vehicle. Historian: patient. Accompanied by friend. Onset. (5 days ago). ( walking and smell of food make it worse, colicky in nature, vomiting today x 2). No fever, weakness, cough, difficulty breathing or skin rash. Denies muscle aches. 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 PAST MEDICAL HX: Last normal menstrual period- Oct 13. SOCIAL HX: Never smoker. No alcohol use or drug use. No infectious disease exposure. ABUSE ASSESSMENT: No report of abuse. SELF HARM ASSESSMENT: A self harm assessment was performed. The patient answered "no" to the question "Have you recently felt down, depressed, or hopeless?", "Have you noticed less interest or pleasure in doing things?", "Do you have thoughts of harming or killing yourself?", "Are you here because you tried to hurt yourself?", "Have you ever tried to hurt yourself before today?", "Have you recently had thoughts about harming or killing others?" and "Do you have any dangerous items in your possession?". NUTRITIONAL RISK ASSESSMENT: The nutritional risk assessment revealed no deficiencies. FUNCTIONAL ASSESSMENT: Functional assessment: no impairments noted. LEARNING NEEDS ASSESSMENT: The learning needs assessment revealed no barriers. SKIN INTEGRITY ASSESSMENT: Skin integrity risk assessment completed. No skin integrity risk identified. --23:19 Yolanda Faye R.N. PROBLEMS: Biliary Colic. Abdominal Pain. Gallstone(s). --23:17 Yolanda Faye R.N. ADDITIONAL SURGERIES: no known surgeries. Interventions ID band on patient. --23:19 Yolanda Faye R.N. PHYSICAL ASSESSMENT 23:37 11/07/16. GENERAL / NEURO / PSYCH: Alert. Oriented X 4. HEENT: Pupils equal, round and reactive to light. No facial asymmetry noted. Mucous membranes are pink. RESPIRATORY: Respirations not labored. Breath sounds within normal limits. CVS: Pulses within normal limits. GI / : Abdomen soft and normal bowel sounds. Abdominal tenderness in the right upper quadrant. No guarding or rebound tenderness. SKIN: Skin intact. Skin is warm and dry. Normal skin turgor. --23:37 Yolanda Faye R.N. NURSING PROGRESS NOTES 23:15 11/07/16. The initial plan of care for this patient includes an assessment with efforts to address impairment of the gastrointestinal system. This plan of care was discussed with the patient. Reassurance given. Two patient identifiers checked. Call light placed in reach. Side rails up x 1. Bed placed in lowest position. Brakes of bed on. Patient ready for evaluation. --23:38 Yolanda Faye R.N. ( pt ambulates to restroom. reminded of need for urine sample. pt states understanding). --23:58 Jazzmine De Jesus R.N. 23:55 11/07/2016 Site #1 started via IV in the right antecubital space with an 18g angiocath, with aseptic technique and good blood return; one attempt. Blood drawn: rainbow set. Labeled in the presence of the patient and sent to the lab. Saline lock flushed with 10 mL saline. --23:58 Yolanda Faye R.N. 23:55 11/07/2016 Started bag #1 1000 mL IV Fluids IV NS (Saline); at 1000 mL/hr over 1 hour(s) via site #1 via IV pump. Allergies verified and confirmed 5 rights. IV patency established. IV site checked: no pain, redness, or swelling. IV flushed thoroughly pre- and post-medication administration. --23:59 Yolanda Faye R.N. 23:57 11/07/2016 Zofran (Ondansetron HCl) IVP 4 mg given over 1 minute(s) via site #1. Allergies verified and confirmed 5 rights. IV patency established. IV site checked: no pain, redness, or swelling. IV flushed thoroughly pre- and post-medication administration. IVP given by RN. --23:59 Yolanda Faye R.N. 00:11/08/16. Patient ID band checked for patient name and birthdate: patient confirmed. Instructions provided to collect clean catch urine and patient verbalized understanding. Clean catch urine collected with return of yellow-colored clear urine; sample sent to lab for urinalysis and HCG. Specimen labeled in the presence of the patient. --00:10 Yolanda Faye R.N. 00:11/08/2016 IV Fluids IV NS Discontinued: completed. Total amount infused: 1000 mL. IV patency established. IV site checked: no pain, redness, or swelling. IV flushed thoroughly. --01:23 Yolanda Faye R.N. 01:23 11/08/2016 Site #1 removed upon discharge. Catheter intact. Bandaid applied. --01:23 Yolanda Faye R.N. DISPOSITION / DISCHARGE 01:24 11/08/16. Departure time: 01:24 Nov 08 2016. Condition at departure: improved and stable. The goals identified in the patient's plan of care were met. No learning barriers present. Reviewed medication(s) side effects, precautions, dosing and course information. Prescription(s) given to the patient. Reviewed referral to a primary care physician for followup. Summary of care provided to patient via paper. Patient verbalized understanding. Written instructions provided in Sinhala. The patient was discharged home and accompanied by practical nurse clinical coordinator. She left the Emergency Department ambulatory and via private vehicle. Account Underwriter driving. --01:24 Yolanda Faye R.N. 01:25 11/08/16. BP: 124/78. HR: 88. RR: 16. O2 saturation: 100%. Temp: 98.3 F. Pain level now 5/10. --01:25 Yolanda Faye R.N. Locked/Released at 11/08/2016 1:25 by Yolanda Faye R.N.
--- NOTE | 2016-11-08 01:10 | ED CLINICAL REPORT ---
Clinical Report - Physicians/Mid Levels [facility] [address] [place] [address] 11/07/2016 23:06 Patient: MOISES CANALES Time Seen: 23:12; initial patient contact. Arrived- By private vehicle. Historian- patient. HISTORY OF PRESENT ILLNESS Chief Complaint: ABDOMINAL PAIN. At its maximum, severity described as moderate. When seen in the E.D., severity described as moderate. Modifying factors- worsened by food. Not relieved by anything. It is described as cramping. No radiation. It is described as located in the right upper quadrant. This started about 1 week ago and is still present. The patient has had nausea and vomiting. No loss of appetite or diarrhea. No additional abdominal pain. No recent travel. Similar symptoms previously: Once. Recent medical care: The patient was seen recently at this facility in the emergency department. Seen for similar symptoms. Evaluation/treatment: sonogram, CBC, electrolytes, amylase and LFT's. Diagnosis: gall stones. REVIEW OF SYSTEMS No constipation, pain with urination, urinary frequency, fever or chills. All systems otherwise negative, except as recorded above. PAST HISTORY Biliary Colic. Abdominal Pain. Gallstone(s). Surgeries: No history of previous surgery. Additional Surgeries: no known surgeries. Medications: None. Allergies: No Known Drug Allergy. SOCIAL HISTORY Never smoker. No alcohol use or drug use. ADDITIONAL NOTES The nursing notes have been reviewed with agreement regarding the chief complaint, PMH and patient medications and allergies. PHYSICAL EXAM Vital Signs: 11/07/2016 23:15 BP: 120/69. HR: 79. RR: 15. O2 saturation: 98%. Temp: 98.8 F. Pain level now: 10/10. Have been reviewed as normal. Appearance: Alert. Oriented X3. No acute distress. Eyes: No scleral icterus. ENT: Dry mucous membranes present. CVS: Normal heart rate and rhythm. Heart sounds normal. Respiratory: No respiratory distress. Breath sounds normal. Abdomen: Soft. Moderate tenderness in the right upper quadrant. Positive Manjarrez's sign. No guarding or rebound tenderness. Bowel sounds normal. No organomegaly. No mass. Back: Normal inspection. No CVA tenderness. Skin: Normal skin color. No rash. Neuro: Oriented X 3. LABS, X-RAYS, AND EKG Laboratory Tests: UA-Culture if indicated: (OBEY: 11/07/2016 00:00) ( [facility] 11/08/2016 00:21) Final results Test Result Flag Units (Reference) URINE COLOR YELLOW URINE APPEARANCE CLEAR URINE GLUCOSE NEGATIVE (NEGATIVE) URINE BILIRUBIN NEGATIVE (NEGATIVE) URINE KETONE NEGATIVE (NEGATIVE) URINE SPECIFIC GRAVITY >= 1.030 (1.010-1.030) URINE PH 6.0 (5.0-8.0) URINE PROTEIN NEGATIVE (NEGATIVE) URINE UROBILINOGEN 0.2 EU/dL (0.2-1.0) URINE NITRITE NEGATIVE (NEGATIVE) URINE BLOOD TRACE-INTACT (NEGATIVE) URINE LEUK ESTERASE NEGATIVE (NEGATIVE) URINE RBC 0-1 rbc/hpf (0-1) URINE WBC 1-3 wbc/hpf (0-1) URINE EPITHELIAL CELLS 1-3 EPI/hpf (0-5) URINE BACTERIA NONE SEEN (NONE SEEN) URINE COMMENT CULT NOT INDICATED 2+ MUCUSURINE CULTURES ARE SET-UP BASED ON THE FOLLOWING CRITERIA:POSITIVE NITRITEPOSITIVE LEUKOCYTE ESTERASEGREATER THAN 10 WHITE BLOOD CELLSMODERATE (2+) OR GREATER BACTERIA Urine: (OBEY: 11/07/2016 00:00) ( [facility] 11/08/2016 00:10) Final results Test Result Flag Units (Reference) URINE NEGATIVE CBC w Diff: (OEBY: 11/07/2016 23:55) ( [facility] 11/08/2016 00:02) Final results Test Result Flag Units (Reference) WHITE BLOOD COUNT 7.6 K/uL (4.5-11.5) RED BLOOD COUNT 4.57 M/uL (4.00-5.20) HEMOGLOBIN 11.9 L gm/dL (12.0-16.0) HEMATOCRIT 36.9 % (36.0-46.0) MEAN CELL VOLUME 81 fL (80-100) MEAN CORPUSCULAR HGB 26 pg (26-34) MEAN CORPUSCULAR HGB CONC 32 g/dL (31-37) RED CELL DISTRIBUTION WIDTH 14.2 % (11.6-14.8) PLATELET COUNT 286 K/uL (150-400) LYMPH % 40.5 H % (25-40) MONO % 3.9 % (3-14) GRANULOCYTE % 55.6 (53-90) CMP: (OBEY: 11/07/2016 23:55) ( MsgRcvd 11/08/2016 00:20) Final results Test Result Flag Units (Reference) GLUCOSE 116 H mg/dL (70-110) BUN 11 mg/dL (7-18) CREATININE 0.7 mg/dL (0.6-1.3) Estimated GFR >60 mL/min Estimated GFR- >60 mL/min Note: Persistent reduction over 3 months in eGFR<60 mL/min/1.73 m2 defines CKD. Patients with eGFR values>=60 mL/min/1.73 m2 may also have CKD if evidence ofpersistent proteinuria. Additional information may be foundat www.[email or web address].org. SODIUM 141 mmol/L (136-145) POTASSIUM 3.4 L mmol/L (3.5-5.1) CHLORIDE 106 mmol/L (98-107) CARBON DIOXIDE 23 mmol/L (21-32) CALCIUM 8.9 mg/dL (8.5-10.1) TOTAL PROTEIN 7.0 g/dL (6.4-8.2) ALBUMIN 3.4 g/dL (3.3-5.0) BILIRUBIN, TOTAL 0.2 mg/dL (0.0-1.0) ALKALINE PHOSPHATASE 96 U/L (46-116) AST (SGOT) 17 U/L (15-37) ALT (SGPT) 28 U/L (12-78) LIPASE 131 U/L (73-393) AMYLASE 49 U/L (25-115) . PROGRESS AND PROCEDURES Course of Care: 01:12 11/08/16. Much improved w/ IVF bolus and Zofran. Disposition: Discharged home in good and improved condition. Condition: good. CLINICAL IMPRESSION Biliary colic with a single gallstone. No cholecystitis. INSTRUCTIONS Drink plenty of fluids. Avoid fatty and fried/greasy foods until better. Prescription Medications: Hydrocodone/APAP 5mg / 325mg: take 1 orally every 6 hours as needed for pain. Dispense fifteen (15). No refill. Zofran (orally disintegrating tablets) 4 mg: take 1 orally every 6 hours as needed for nausea and vomiting. Dispense ten (10). No refill. Substitution is permissible. Follow-up: Follow up with your doctor in about two days if not better. Call for an appointment. Screening today revealed the patient's blood pressure to be in the pre-hypertensive range. The patient should follow up with a primary care provider for blood pressure management. (Electronically signed by Shashank Garcia Dr. 11/08/2016 1:13)
--- NOTE | 2016-11-08 01:10 | ED ORDER SUMMARY ---
..... Patient: MOISES CANALES OrderSheet [facility] VisitID: [id number] [place] [address] 20y, F Registration Date/Time: 11/07/2016 ORDER SHEET Weight: 77.1 kg (stated) Allergies: No Known Drug Allergy GENERAL ORDERS: CBC w Diff Urgent (23:40 11/07/2016 Rosa Main) (Ack 23:41 AMcQuoid ER Tech1) (23:58 EInderbitzen R.N.) CMP Urgent (23:40 11/07/2016 Rosa Main) (Ack 23:41 AMcQuoid ER Tech1) (23:58 EInderbitzen R.N.) UA-Culture if indicated Urgent (23:40 11/07/2016 Rosa Main) (Ack 23:41 AMcQuoid ER Tech1) (0:10 EInderbitzen R.N.) Amylase Urgent (23:40 11/07/2016 Rosa Main) (Ack 23:41 AMcQuoid ER Tech1) (23:58 EInderbitzen R.N.) Lipase Urgent (23:40 11/07/2016 Rosa Main) (Ack 23:41 AMcQuoid ER Tech1) (23:58 EInderbitzen R.N.) Urine Urgent (23:40 11/07/2016 Rosa Main) (Ack 23:41 AMcQuoid ER Tech1) (0:10 EInderbitzen R.N.) MEDICATION ORDERS: IV FLUIDS: IV NS : initial bolus none -, then 1000 mL/hr for X1 (NOW) (23:39 11/07/2016 Rosa Main) (Ack 23:53 RCollier R.N.) (23:59 EInderbitzen R.N.) Zofran IV 4 mg (NOW) (23:40 11/07/2016 Rosa Main) (Ack 23:53 RCollier R.N.) (23:59 EInderbitzen R.N.) ORDER SHEET NOTES: [Electronically signed by Shashank Garcia Dr. (01:13 11/08/2016)] [Electronically signed by Yolanda Faye R.N. (11/08/2016)] [Electronically locked/signed by Yolanda Faye R.N. (11/08/2016)]
--- NOTE | 2016-11-08 01:10 | ED ORDER SUMMARY ---
..... Patient: MOISES CANALES OrderSheet [facility] VisitID: [id number] [place] [address] 20y, F Registration Date/Time: 11/07/2016 ORDER SHEET Weight: 77.1 kg (stated) Allergies: No Known Drug Allergy GENERAL ORDERS: CBC w Diff Urgent (23:40 11/07/2016 Rosa Main) (Ack 23:41 AMcQuoid ER Tech1) (23:58 EInderbitzen R.N.) CMP Urgent (23:40 11/07/2016 Rosa Main) (Ack 23:41 AMcQuoid ER Tech1) (23:58 EInderbitzen R.N.) UA-Culture if indicated Urgent (23:40 11/07/2016 Rosa Main) (Ack 23:41 AMcQuoid ER Tech1) (0:10 EInderbitzen R.N.) Amylase Urgent (23:40 11/07/2016 Rosa Main) (Ack 23:41 AMcQuoid ER Tech1) (23:58 EInderbitzen R.N.) Lipase Urgent (23:40 11/07/2016 Rosa Main) (Ack 23:41 AMcQuoid ER Tech1) (23:58 EInderbitzen R.N.) Urine Urgent (23:40 11/07/2016 Rosa Main) (Ack 23:41 AMcQuoid ER Tech1) (0:10 EInderbitzen R.N.) MEDICATION ORDERS: IV FLUIDS: IV NS : initial bolus none -, then 1000 mL/hr for X1 (NOW) (23:39 11/07/2016 Rosa Main) (Ack 23:53 RCollier R.N.) (23:59 EInderbitzen R.N.) Zofran IV 4 mg (NOW) (23:40 11/07/2016 Rosa Main) (Ack 23:53 RCollier R.N.) (23:59 EInderbitzen R.N.) ORDER SHEET NOTES: [Electronically signed by Shashank Garcia Dr. (01:13 11/08/2016)] [Electronically signed by Yolanda Faye R.N. (11/08/2016)] [Electronically locked/signed by Yolanda Faye R.N. (11/08/2016)]
--- NOTE | 2016-11-08 01:25 | ED DISCHARGE INSTRUCTIONS ---
Patient: MOISES CANALES General Instructions [facility] VisitID: [id number] [place] [address] 20y, F Registration Date/Time: 11/07/2016 Biliary colic with a single gallstone. No cholecystitis. INSTRUCTIONS Drink plenty of fluids. Avoid fatty and fried/greasy foods until better. Prescription Medications: Hydrocodone/APAP 5mg / 325mg: take 1 orally every 6 hours as needed for pain. Dispense fifteen (15). No refill. Zofran (orally disintegrating tablets) 4 mg: take 1 orally every 6 hours as needed for nausea and vomiting. Dispense ten (10). No refill. Substitution is permissible. Follow-up: Follow up with your doctor in about two days if not better. Call for an appointment. Screening today revealed the patient's blood pressure to be in the pre-hypertensive range. The patient should follow up with a primary care provider for blood pressure management. ADDITIONAL INFORMATION GallstonesWith Biliary Colic [Confirmed Dx] The abdominal pain that you have today is due to spasm of the gallbladder. The gallbladder is a small sac under the liver which stores and releases bile. Bile is a fluid that aids in the digestion of fat. A gallstone may form inside the gallbladder and block the flow of bile fluid. This causes mild to severe crampy pain in the mid or right upper abdomen with nausea and vomiting. Home Care: Rest in bed and follow a clear liquid diet until feeling better. If pain or nausea medicine was given to help with your symptoms, take these as directed. Fat in your diet makes the gallbladder contract and may cause increased pain. Therefore, avoid fat in your diet over the next two days and follow a low-fat diet after that. If you are overweight, a low-fat diet will also help you lose weight. Follow Up with your doctor. There is a 50% chance that you will have another episode of pain from your gallstones during the next 2 years. Removal of the gallbladder is the treatment of choice to prevent this. Schedule an appointment with your own doctor during the next week to discuss the treatment options. Get Prompt Medical Attention if any of the following occur: Pain gets worse or moves to the right lower abdomen Repeated vomiting Swelling of the abdomen Pain lasts over 6 hours Fever of 100.4F (38C) or higher, or as directed by your healthcare provider Weakness, dizziness or fainting Dark urine or light colored stools Yellow color of the skin or eyes Chest, arm, back, neck or jaw pain [place] Diet A bland diet is used for patients with an upset stomach. It consists of foods that are mild and easy to digest. It is better to eat small frequent meals rather than three large meals a day. BEVERAGES OK: Fruit juices, non-caffeinated teas and coffee, non-carbonated allen AVOID: Carbonated beverage, caffeinated tea and coffee, all alcoholic beverages BREAD OK: Refined white, wheat or rye bread, perez or soda crackers, [place] toast, plain rolls, bagels AVOID: Whole-grain bread CEREAL OK: Refined cereals: cooked or ready to eat AVOID: Whole grain cereals and granola, or those containing bran, seeds or nuts DESSERTS OK: Peanut butter and all others except those to "avoid" AVOID: Chocolate, cocoa, coconut, popcorn, nuts, seeds, jam, marmalade FRUITS OK: Canned, cooked, frozen or fresh fruits without seeds or tough skin AVOID: Olives, skin and seeds of fruit MEATS OK: All fresh or preserved meat, fish and fowl AVOID: Any that are prepared with those spices to "avoid" CHEESE & EGGS OK: Eggs, cottage cheese, cream cheese, other cheeses AVOID: All cheeses made with those spices to "avoid" POTATOES & PASTA OK: Potato, rice, macaroni, noodles, spaghetti AVOID: None SOUPS OK: All soups without heavy seasoning AVOID: Soups made with those spices to "avoid" VEGETABLES OK: Canned, cooked, fresh or frozen mildly flavored vegetables without seeds, skins or coarse fiber AVOID: Vegetables prepared with those spices to "avoid"; skin and seeds of vegetables and those with coarse fiber SPICES OK: Salt, lemon and [place] juice, vinegar, all extracts, tracey, cinnamon, thyme, mace, allspice, paprika AVOID: [place] powder, cloves, pepper, seed spices, garlic, gravy pickles, highly seasoned salad dressings Hydrocodone Bitartrate, Acetaminophen Oral tablet What is this medicine? ACETAMINOPHEN; HYDROCODONE (a set a ARLINE erin fen; catie droe KOE done) is a pain reliever. It is used to treat mild to moderate pain. How should I use this medicine? Take this medicine by mouth. Swallow it with a full glass of water. Follow the directions on the prescription label. If the medicine upsets your stomach, take the medicine with food or milk. Do not take more than you are told to take. Talk to your horse racer regarding the use of this medicine in children. This medicine is not approved for use in children. What side effects may I notice from receiving this medicine? Side effects that you should report to your doctor or health healthcare customer service as soon as possible: allergic reactions like skin rash, itching or hives, swelling of the face, lips, or tongue breathing problems confusion feeling faint or lightheaded, falls stomach pain yellowing of the eyes or skin Side effects that usually do not require medical attention (report to your doctor or health healthcare customer service if they continue or are bothersome): nausea, vomiting stomach upset What may interact with this medicine? alcohol antihistamines isoniazid medicines for depression, anxiety, or psychotic disturbances medicines for sleep muscle relaxants naltrexone narcotic medicines (opiates) for pain phenobarbital ritonavir tramadol What if I miss a dose? If you miss a dose, take it as soon as you can. If it is almost time for your next dose, take only that dose. Do not take double or extra doses. Where should I keep my medicine? Keep out of the reach of children. This medicine can be abused. Keep your medicine in a safe place to protect it from theft. Do not share this medicine with anyone. Selling or giving away this medicine is dangerous and against the law. Store at room temperature between 15 and 30 degrees C (59 and 86 degrees F). Protect from light. Keep container tightly closed. Throw away any unused medicine after the expiration date. Discard unused medicine and used packaging carefully. Pets and children can be harmed if they find used or lost packages. What should I tell my health care provider before I take this medicine? They need to know if you have any of these conditions: brain tumor Crohn's disease, inflammatory bowel disease, or ulcerative colitis drink more than 3 alcohol-containing drinks per day drug abuse or addiction head injury heart or circulation problems kidney disease or problems going to the bathroom liver disease lung disease, asthma, or breathing problems an unusual or allergic reaction to acetaminophen, hydrocodone, other opioid analgesics, other medicines, foods, dyes, or preservatives or trying to get breast-feeding What should I watch for while using this medicine? Tell your doctor or health healthcare customer service if your pain does not go away, if it gets worse, or if you have new or a different type of pain. You may develop tolerance to the medicine. Tolerance means that you will need a higher dose of the medicine for pain relief. Tolerance is normal and is expected if you take the medicine for a long time. Do not suddenly stop taking your medicine because you may develop a severe reaction. Your body becomes used to the medicine. This does NOT mean you are addicted. Addiction is a behavior related to getting and using a drug for a non-medical reason. If you have pain, you have a medical reason to take pain medicine. Your doctor will tell you how much medicine to take. If your doctor wants you to stop the medicine, the dose will be slowly lowered over time to avoid any side effects. You may get drowsy or dizzy when you first start taking the medicine or change doses. Do not drive, use machinery, or do anything that may be dangerous until you know how the medicine affects you. Stand or sit up slowly. There are different types of narcotic medicines (opiates) for pain. If you take more than one type at the same time, you may have more side effects. Give your health care provider a list of all medicines you use. Your doctor will tell you how much medicine to take. Do not take more medicine than directed. Call emergency for help if you have problems breathing. The medicine will cause constipation. Try to have a bowel movement at least every 2 to 3 days. If you do not have a bowel movement for 3 days, call your doctor or health healthcare customer service. Too much acetaminophen can be very dangerous. Do not take Tylenol (acetaminophen) or medicines that contain acetaminophen with this medicine. Many non-prescription medicines contain acetaminophen. Always read the labels carefully. Ondansetron Oral disintegrating tablet What is this medicine? ONDANSETRON (on YANCY se yasmani) is used to treat nausea and vomiting caused by chemotherapy. It is also used to prevent or treat nausea and vomiting after surgery. How should I use this medicine? These tablets are made to dissolve in the mouth. Do not try to push the tablet through the foil backing. With dry hands, peel away the foil backing and gently remove the tablet. Place the tablet in the mouth and allow it to dissolve, then swallow. While you may take these tablets with water, it is not necessary to do so. Talk to your horse racer regarding the use of this medicine in children. Special care may be needed. What side effects may I notice from receiving this medicine? Side effects that you should report to your doctor or health healthcare customer service as soon as possible: allergic reactions like skin rash, itching or hives, swelling of the face, lips, or tongue breathing problems dizziness fast or irregular heartbeat feeling faint or lightheaded, falls fever and chills swelling of the hands and feet tightness in the chest Side effects that usually do not require medical attention (report to your doctor or health healthcare customer service if they continue or are bothersome): constipation or diarrhea headache What may interact with this medicine? Do not take this medicine with any of the following medications: -apomorphine -cisapride -dofetilide -dronedarone -pimozide -thioridazine -ziprasidone This medicine may also interact with the following medications: -carbamazepine -phenytoin -rifampicin -tramadol -other medicines that prolong the QT interval (cause an abnormal heart rhythm) What if I miss a dose? If you miss a dose, take it as soon as you can. If it is almost time for your next dose, take only that dose. Do not take double or extra doses. Where should I keep my medicine? Keep out of the reach of children. Store between 2 and 30 degrees C (36 and 86 degrees F). Throw away any unused medicine after the expiration date. What should I tell my health care provider before I take this medicine? They need to know if you have any of these conditions: heart disease history of irregular heartbeat liver disease low levels of magnesium or potassium in the blood an unusual or allergic reaction to ondansetron, granisetron, other medicines, foods, dyes, or preservatives or trying to get breast-feeding What should I watch for while using this medicine? Check with your doctor or health healthcare customer service as soon as you can if you have any sign of an allergic reaction. You have been given the following additional information: Biliary Colic With Gallstone (Confirmed) Diet, [place] (Adult) Hydrocodone Bitartrate, Acetaminophen Oral tablet Ondansetron Oral disintegrating tablet (Electronically signed by Shashank Garcia Dr. 11/08/2016 1:13)
--- NOTE | 2016-11-08 01:25 | ED DISCHARGE INSTRUCTIONS ---
Patient: MOISES CANALES General Instructions [facility] VisitID: [id number] [place] [address] 20y, F Registration Date/Time: 11/07/2016 Biliary colic with a single gallstone. No cholecystitis. INSTRUCTIONS Drink plenty of fluids. Avoid fatty and fried/greasy foods until better. Prescription Medications: Hydrocodone/APAP 5mg / 325mg: take 1 orally every 6 hours as needed for pain. Dispense fifteen (15). No refill. Zofran (orally disintegrating tablets) 4 mg: take 1 orally every 6 hours as needed for nausea and vomiting. Dispense ten (10). No refill. Substitution is permissible. Follow-up: Follow up with your doctor in about two days if not better. Call for an appointment. Screening today revealed the patient's blood pressure to be in the pre-hypertensive range. The patient should follow up with a primary care provider for blood pressure management. ADDITIONAL INFORMATION GallstonesWith Biliary Colic [Confirmed Dx] The abdominal pain that you have today is due to spasm of the gallbladder. The gallbladder is a small sac under the liver which stores and releases bile. Bile is a fluid that aids in the digestion of fat. A gallstone may form inside the gallbladder and block the flow of bile fluid. This causes mild to severe crampy pain in the mid or right upper abdomen with nausea and vomiting. Home Care: Rest in bed and follow a clear liquid diet until feeling better. If pain or nausea medicine was given to help with your symptoms, take these as directed. Fat in your diet makes the gallbladder contract and may cause increased pain. Therefore, avoid fat in your diet over the next two days and follow a low-fat diet after that. If you are overweight, a low-fat diet will also help you lose weight. Follow Up with your doctor. There is a 50% chance that you will have another episode of pain from your gallstones during the next 2 years. Removal of the gallbladder is the treatment of choice to prevent this. Schedule an appointment with your own doctor during the next week to discuss the treatment options. Get Prompt Medical Attention if any of the following occur: Pain gets worse or moves to the right lower abdomen Repeated vomiting Swelling of the abdomen Pain lasts over 6 hours Fever of 100.4F (38C) or higher, or as directed by your healthcare provider Weakness, dizziness or fainting Dark urine or light colored stools Yellow color of the skin or eyes Chest, arm, back, neck or jaw pain [place] Diet A bland diet is used for patients with an upset stomach. It consists of foods that are mild and easy to digest. It is better to eat small frequent meals rather than three large meals a day. BEVERAGES OK: Fruit juices, non-caffeinated teas and coffee, non-carbonated allen AVOID: Carbonated beverage, caffeinated tea and coffee, all alcoholic beverages BREAD OK: Refined white, wheat or rye bread, perez or soda crackers, [place] toast, plain rolls, bagels AVOID: Whole-grain bread CEREAL OK: Refined cereals: cooked or ready to eat AVOID: Whole grain cereals and granola, or those containing bran, seeds or nuts DESSERTS OK: Peanut butter and all others except those to "avoid" AVOID: Chocolate, cocoa, coconut, popcorn, nuts, seeds, jam, marmalade FRUITS OK: Canned, cooked, frozen or fresh fruits without seeds or tough skin AVOID: Olives, skin and seeds of fruit MEATS OK: All fresh or preserved meat, fish and fowl AVOID: Any that are prepared with those spices to "avoid" CHEESE & EGGS OK: Eggs, cottage cheese, cream cheese, other cheeses AVOID: All cheeses made with those spices to "avoid" POTATOES & PASTA OK: Potato, rice, macaroni, noodles, spaghetti AVOID: None SOUPS OK: All soups without heavy seasoning AVOID: Soups made with those spices to "avoid" VEGETABLES OK: Canned, cooked, fresh or frozen mildly flavored vegetables without seeds, skins or coarse fiber AVOID: Vegetables prepared with those spices to "avoid"; skin and seeds of vegetables and those with coarse fiber SPICES OK: Salt, lemon and [place] juice, vinegar, all extracts, tracey, cinnamon, thyme, mace, allspice, paprika AVOID: [place] powder, cloves, pepper, seed spices, garlic, gravy pickles, highly seasoned salad dressings Hydrocodone Bitartrate, Acetaminophen Oral tablet What is this medicine? ACETAMINOPHEN; HYDROCODONE (a set a ARILNE erin fen; catie droe KOE done) is a pain reliever. It is used to treat mild to moderate pain. How should I use this medicine? Take this medicine by mouth. Swallow it with a full glass of water. Follow the directions on the prescription label. If the medicine upsets your stomach, take the medicine with food or milk. Do not take more than you are told to take. Talk to your rn advanced regarding the use of this medicine in children. This medicine is not approved for use in children. What side effects may I notice from receiving this medicine? Side effects that you should report to your doctor or health hospice care sales consultant as soon as possible: allergic reactions like skin rash, itching or hives, swelling of the face, lips, or tongue breathing problems confusion feeling faint or lightheaded, falls stomach pain yellowing of the eyes or skin Side effects that usually do not require medical attention (report to your doctor or health hospice care sales consultant if they continue or are bothersome): nausea, vomiting stomach upset What may interact with this medicine? alcohol antihistamines isoniazid medicines for depression, anxiety, or psychotic disturbances medicines for sleep muscle relaxants naltrexone narcotic medicines (opiates) for pain phenobarbital ritonavir tramadol What if I miss a dose? If you miss a dose, take it as soon as you can. If it is almost time for your next dose, take only that dose. Do not take double or extra doses. Where should I keep my medicine? Keep out of the reach of children. This medicine can be abused. Keep your medicine in a safe place to protect it from theft. Do not share this medicine with anyone. Selling or giving away this medicine is dangerous and against the law. Store at room temperature between 15 and 30 degrees C (59 and 86 degrees F). Protect from light. Keep container tightly closed. Throw away any unused medicine after the expiration date. Discard unused medicine and used packaging carefully. Pets and children can be harmed if they find used or lost packages. What should I tell my health care provider before I take this medicine? They need to know if you have any of these conditions: brain tumor Crohn's disease, inflammatory bowel disease, or ulcerative colitis drink more than 3 alcohol-containing drinks per day drug abuse or addiction head injury heart or circulation problems kidney disease or problems going to the bathroom liver disease lung disease, asthma, or breathing problems an unusual or allergic reaction to acetaminophen, hydrocodone, other opioid analgesics, other medicines, foods, dyes, or preservatives or trying to get breast-feeding What should I watch for while using this medicine? Tell your doctor or health hospice care sales consultant if your pain does not go away, if it gets worse, or if you have new or a different type of pain. You may develop tolerance to the medicine. Tolerance means that you will need a higher dose of the medicine for pain relief. Tolerance is normal and is expected if you take the medicine for a long time. Do not suddenly stop taking your medicine because you may develop a severe reaction. Your body becomes used to the medicine. This does NOT mean you are addicted. Addiction is a behavior related to getting and using a drug for a non-medical reason. If you have pain, you have a medical reason to take pain medicine. Your doctor will tell you how much medicine to take. If your doctor wants you to stop the medicine, the dose will be slowly lowered over time to avoid any side effects. You may get drowsy or dizzy when you first start taking the medicine or change doses. Do not drive, use machinery, or do anything that may be dangerous until you know how the medicine affects you. Stand or sit up slowly. There are different types of narcotic medicines (opiates) for pain. If you take more than one type at the same time, you may have more side effects. Give your health care provider a list of all medicines you use. Your doctor will tell you how much medicine to take. Do not take more medicine than directed. Call emergency for help if you have problems breathing. The medicine will cause constipation. Try to have a bowel movement at least every 2 to 3 days. If you do not have a bowel movement for 3 days, call your doctor or health hospice care sales consultant. Too much acetaminophen can be very dangerous. Do not take Tylenol (acetaminophen) or medicines that contain acetaminophen with this medicine. Many non-prescription medicines contain acetaminophen. Always read the labels carefully. Ondansetron Oral disintegrating tablet What is this medicine? ONDANSETRON (on YANCY se yasmani) is used to treat nausea and vomiting caused by chemotherapy. It is also used to prevent or treat nausea and vomiting after surgery. How should I use this medicine? These tablets are made to dissolve in the mouth. Do not try to push the tablet through the foil backing. With dry hands, peel away the foil backing and gently remove the tablet. Place the tablet in the mouth and allow it to dissolve, then swallow. While you may take these tablets with water, it is not necessary to do so. Talk to your rn advanced regarding the use of this medicine in children. Special care may be needed. What side effects may I notice from receiving this medicine? Side effects that you should report to your doctor or health hospice care sales consultant as soon as possible: allergic reactions like skin rash, itching or hives, swelling of the face, lips, or tongue breathing problems dizziness fast or irregular heartbeat feeling faint or lightheaded, falls fever and chills swelling of the hands and feet tightness in the chest Side effects that usually do not require medical attention (report to your doctor or health hospice care sales consultant if they continue or are bothersome): constipation or diarrhea headache What may interact with this medicine? Do not take this medicine with any of the following medications: -apomorphine -cisapride -dofetilide -dronedarone -pimozide -thioridazine -ziprasidone This medicine may also interact with the following medications: -carbamazepine -phenytoin -rifampicin -tramadol -other medicines that prolong the QT interval (cause an abnormal heart rhythm) What if I miss a dose? If you miss a dose, take it as soon as you can. If it is almost time for your next dose, take only that dose. Do not take double or extra doses. Where should I keep my medicine? Keep out of the reach of children. Store between 2 and 30 degrees C (36 and 86 degrees F). Throw away any unused medicine after the expiration date. What should I tell my health care provider before I take this medicine? They need to know if you have any of these conditions: heart disease history of irregular heartbeat liver disease low levels of magnesium or potassium in the blood an unusual or allergic reaction to ondansetron, granisetron, other medicines, foods, dyes, or preservatives or trying to get breast-feeding What should I watch for while using this medicine? Check with your doctor or health hospice care sales consultant as soon as you can if you have any sign of an allergic reaction. You have been given the following additional information: Biliary Colic With Gallstone (Confirmed) Diet, [place] (Adult) Hydrocodone Bitartrate, Acetaminophen Oral tablet Ondansetron Oral disintegrating tablet (Electronically signed by Shashank Garcia Dr. 11/08/2016 1:13)
--- NOTE | 2016-11-08 01:26 | ED MED RECONCILIATION SUMMARY ---
Patient: MOISES CANALES Medication Reconciliation Report [facility] VisitID: [id number] [address] [place] [address] 20y, F Registration Date/Time: 11/07/2016 Weight: 77.1 kg Height/Length: 65 in. BMI: 28.3 ALLERGIES: No Known Drug Allergy The patient's Home Medications are listed below: NONE. The source(s) of the original Home Medication information: patient The following Medications were given to the patient in the Emergency Department: IV NS IV Fluids bolus 0, then 1000 mL/hr, administered: 11/07/2016 11:55:00 PM Zofran [IVP] IVP 4 mg, administered: 11/07/2016 11:57:00 PM The following Medications were prescribed to the patient: Hydrocodone/APAP 5mg / 325mg: take 1 orally every 6 hours as needed for pain. Dispense fifteen (15). No refill. -- Shashank Garcia Dr. Zofran (orally disintegrating tablets) 4 mg: take 1 orally every 6 hours as needed for nausea and vomiting. Dispense ten (10). No refill. Substitution is permissible. -- Shashank Garcia Dr.
--- NOTE | 2016-11-08 01:26 | ED MAR SUMMARY ---
..... Medication Administration Record [facility] [address] [place] [address] Patient: MOISES CANALES Visit ID: [id number] 20y, F Weight: 77.1 kg Height/Length: 65 in BMI: 28.3 ALLERGIES: No Known Drug Allergy Start 23:55 11/07/2016 Yolanda Faye R.N., Stop 00:01 11/08/2016 Yolanda Faye R.N. Medication Administered: IV NS (SALINE), Dose: IV Fluids over 1 hour(s), Rate: 1000 mL/hr, Dispensed: 1000 mL bag, Site: #1 right AC. Medication Ordered: IV NS : initial bolus none -, then 1000 mL/hr for X1 (NOW). Given 23:57 11/07/2016 Yolanda Faye R.N. Medication Administered: ZOFRAN [IVP] (ONDANSETRON HCL), Dose: 4 mg IVP over 1 minute(s), Site: #1 right AC. Medication Ordered: Zofran IV 4 mg (NOW).
--- NOTE | 2016-11-08 01:26 | ED MED RECONCILIATION SUMMARY ---
Patient: MOISES CANALES Medication Reconciliation Report [facility] VisitID: [id number] [address] [place] [address] 20y, F Registration Date/Time: 11/07/2016 Weight: 77.1 kg Height/Length: 65 in. BMI: 28.3 ALLERGIES: No Known Drug Allergy The patient's Home Medications are listed below: NONE. The source(s) of the original Home Medication information: patient The following Medications were given to the patient in the Emergency Department: IV NS IV Fluids bolus 0, then 1000 mL/hr, administered: 11/07/2016 11:55:00 PM Zofran [IVP] IVP 4 mg, administered: 11/07/2016 11:57:00 PM The following Medications were prescribed to the patient: Hydrocodone/APAP 5mg / 325mg: take 1 orally every 6 hours as needed for pain. Dispense fifteen (15). No refill. -- Shashank Garcia Dr. Zofran (orally disintegrating tablets) 4 mg: take 1 orally every 6 hours as needed for nausea and vomiting. Dispense ten (10). No refill. Substitution is permissible. -- Shashank Garcia Dr.
--- NOTE | 2016-11-08 01:26 | ED MAR SUMMARY ---
..... Medication Administration Record [facility] [address] [place] [address] Patient: MOISES CANALES Visit ID: [id number] 20y, F Weight: 77.1 kg Height/Length: 65 in BMI: 28.3 ALLERGIES: No Known Drug Allergy Start 23:55 11/07/2016 Yolanda Faye R.N., Stop 00:01 11/08/2016 Yolanda Faye R.N. Medication Administered: IV NS (SALINE), Dose: IV Fluids over 1 hour(s), Rate: 1000 mL/hr, Dispensed: 1000 mL bag, Site: #1 right AC. Medication Ordered: IV NS : initial bolus none -, then 1000 mL/hr for X1 (NOW). Given 23:57 11/07/2016 Yolanda Faye R.N. Medication Administered: ZOFRAN [IVP] (ONDANSETRON HCL), Dose: 4 mg IVP over 1 minute(s), Site: #1 right AC. Medication Ordered: Zofran IV 4 mg (NOW).
== END 2016-11-08 01:25 | disposition home or self-care (01) ==
LOC: ED SRH 23:06
DX: K80.20 Calculus of gallbladder without cholecystitis without obstruction (principal)
CPT/HCPCS: 90004; 90100; 92235; 92530; 93070; 95059

== ENCOUNTER 2016-11-20 21:59 | Emergency (ER) | payer OTHER ==
--- NOTE | 2016-11-20 22:25 | ED ORDER SUMMARY ---
..... Patient: MOISES CANALES OrderSheet [facility] VisitID: [id number] [address] [place] [address] 20y, F Registration Date/Time: 11/20/2016 ORDER SHEET Weight: 74.8 kg (stated) Allergies: No Known Drug Allergy GENERAL ORDERS: Foot 3V Left Urgent (22:09 11/20/2016 Agustin A.R.N.P.) ([facility] 22:12 [facility]) MEDICATION ORDERS: IV FLUIDS: ORDER SHEET NOTES: [Electronically signed by Lg Coto R.N. (07:04 11/21/2016)] [Electronically signed by Maryjane Galan.R.N.P. (12:59 11/21/2016)] [Electronically locked/signed by Lg Coto R.N. (07:04 11/21/2016)]
--- NOTE | 2016-11-20 22:25 | ED NURSING NOTES ---
Clinical Report - Nurses [facility] [address] [place] [address] 11/20/2016 22:00 Patient: MOISES CANALES TRIAGE Triage time 22:03 Nov 20 2016. Acuity: LEVEL 4. Chief Complaint: INJURY TO LEFT ANKLE. --22:06 Lg Coto R.N. 22:03 11/20/16. BP: 122/75. HR: 85. RR: 20. O2 saturation: 100%. Temp: 97.6 F. Pain level now 07/03. --22:06 Lg Coto R.N. Weight: 74.8 kg stated. Height/Length: 71 inches Per Patient. BMI: 23. Growth Chart Percentile: Weight: 89.6%. Height/Length: 99.6%. --22:05 Lg Coto R.N. Medications None. --22:05 Lg Coto R.N. Allergies No Known Drug Allergy. --22:05 Lg Coto R.N. History Arrived by private vehicle. Historian: patient. Accompanied by family. This occurred just prior to arrival. Occurred at home. Mechanism of injury: fell. ( was running up cement stairs and fell landed on hands but ankle hit the stair.). No numbness, tingling, weakness, neck pain or back pain. Treatment NURSE PRACTITIONER ADULT: Ice. PAST MEDICAL HX: Tetanus status: up-to-date. Immunizations: up-to-date. SOCIAL HX: Never smoker. No alcohol use or drug use. SELF HARM ASSESSMENT: A self harm assessment was performed. The patient answered "no" to the question "Have you recently felt down, depressed, or hopeless?" and "Do you have thoughts of harming or killing yourself?". FALL RISK ASSESSMENT: Fall risk assessment completed. No fall risk identified. NUTRITIONAL RISK ASSESSMENT: The nutritional risk assessment revealed no deficiencies. FUNCTIONAL ASSESSMENT: Functional assessment: no impairments noted. LEARNING NEEDS ASSESSMENT: The learning needs assessment revealed no barriers. ABUSE ASSESSMENT: Abuse assessment: (yes) The patient was asked "Do you feel safe in your home?". SKIN INTEGRITY ASSESSMENT: Skin integrity risk assessment completed. No skin integrity risk identified. --22:06 Lg Coto R.N. PROBLEMS: Biliary Colic. Abdominal Pain. Gallstone(s). Spotting, . Threatened . . Depression. Immunizations. LNMP - Last Normal Menstrual Period. Suicidal Ideation. --22: Lg Coto R.N. ADDITIONAL SURGERIES: no known surgeries. Interventions ID band on patient. --22:06 Lg Coto R.N. PHYSICAL ASSESSMENT To room via wheelchair. GENERAL / NEURO / PSYCH: Oriented X 4. Alert. Appears in no acute distress. EXTREMITIES: Capillary refill is less than 2 seconds in the extremities. Extremity pulses are within normal limits. Pain with weight bearing. Neuro-vascular status intact to the extremity. Left ankle: tenderness and swelling. SKIN: Skin intact. Skin is warm and dry. --22:07 Lg Coto R.N. NURSING PROGRESS NOTES The plan of care for this patient includes an assessment with efforts to address patient positioning and appropriate ambient lighting; impairment of the musculoskeletal system. Cold pack applied. Reassurance given. Call light placed in reach. Side rails up x 1. Bed placed in lowest position. Brakes of bed on. --22:07 Lg Coto R.N. DISPOSITION / DISCHARGE Departure time: 22:48 Nov 20 2016. Condition at departure: improved. No learning barriers present. Discharge instructions provided and reviewed with the patient. Reviewed warnings. Reviewed medication(s). Treatments reviewed. Patient verbalized understanding. Written instructions provided in Frisian. The patient was discharged home and accompanied by spouse. She left the Emergency Department ambulatory and via private vehicle. Spouse driving. --22:48 Lg Coto R.N. 22:03 11/20/16. BP: 122/75. HR: 85. RR: 20. O2 saturation: 100%. Temp: 97.6 F. Pain level now 10/10. --22:48 Lg Coto R.N. Locked/Released at 11/21/2016 7:04 by Lg Coto R.N.
--- NOTE | 2016-11-20 22:25 | ED CLINICAL REPORT ---
Clinical Report - Physicians/Mid Levels [facility] [address] [place] [address] 11/20/2016 22:00 Patient: MOISES CANALES Time Seen: 22:06; upon arrival, initial patient contact, initial documentation, patient care assumed. Arrived- By private vehicle. Historian- patient. HISTORY OF PRESENT ILLNESS Chief Complaint: Injury to the left foot. The injury happened just prior to arrival. The patient sustained a moderate direct blow (running up stairs, tripped and hit top of foot on edge of stair). Occurred at home. Patient is experiencing severe pain. Patient denies injury to the head or neck. No other injury. REVIEW OF SYSTEMS The patient complains of pain on weight bearing. She has had swelling. No tingling, weakness, numbness or skin laceration. All systems otherwise negative, except as recorded above. PAST HISTORY See nurses notes. PROBLEMS: Biliary Colic. Abdominal Pain. Gallstone(s). Spotting, . Threatened . . Depression. Immunizations. LNMP - Last Normal Menstrual Period. Suicidal Ideation. --22:05 Lg Coto R.N. ADDITIONAL SURGERIES: no known surgeries. SOCIAL HISTORY Never smoker. No alcohol use or drug use. No recent travel. Is a local resident. FAMILY HISTORY No significant family medical history. ADDITIONAL NOTES The nursing notes have been reviewed with agreement regarding the chief complaint, HPI, ROS, PMH and patient medications and allergies. PHYSICAL EXAM Vital Signs: 11/20/2016 22:03 BP: 122/75. HR: 85. RR: 20. O2 saturation: 100%. Temp: 97.6 F. Have been reviewed as normal and appear to be correct. Appearance: Alert. Oriented X3. No acute distress. Head: Head atraumatic. Eyes: Pupils equal, round and reactive to light. Eyes normal inspection. Respiratory: No respiratory distress. Skin: Skin intact. Skin warm and dry. Extremities: Left anterior ankle: mild tenderness and swelling and small ecchymosis of the proximal aspect of the ankle. Limited movement secondary to pain (diminished plantar flexion, dorsiflexion, inversion and eversion). Neurovascular intact distally. No ligamentous laxity present. No joint effusion. No erythema, laceration, abrasion, puncture wound or foreign body. No deformity. Foot injury present. No ankle injury. Foot and ankle exam otherwise negative. Extremities otherwise negative. Neuro, Vascular and Tendons: Vascular status intact. Sensation intact. Motor intact. Tendon function intact. Gait: Abnormal gait. Gait not tested due to pain. Neuro: Oriented X 3. No motor deficit. No sensory deficit. Note: isolated injury to foot. LABS, X-RAYS, AND EKG X-Rays: X-rays are normal and reveal no acute disease (and reviewed by dr valdez). Left foot negative. The X-rays were independently viewed by me. PROGRESS AND PROCEDURES Course of Care: 22:12 11/20/16. pt has stacy for some narcs and #9 er visits, see report for full details. Patient counseled in person regarding the patient's stable condition, test results and diagnosis. 22:25. Differential Diagnosis: Other possible considerations: foot contusions, sprain, fx. Above considerations are based on history, physical exam and X-Ray data. Differential diagnosis was discussed with patient. Disposition: Discharged home in good and unchanged condition (22:25). Condition: good and stable. CLINICAL IMPRESSION Single contusion to the left foot.No hematoma or skin abrasion. INSTRUCTIONS Apply ice for 20 minutes four times a day for one until better. Don't apply ice directly to skin. Elevate affected areas above chest level for one days until better. Warnings: GENERAL WARNINGS: Return or contact your physician immediately if your condition worsens or changes unexpectedly, if not improving as expected, or if other problems arise. Specifically return if problem worsens. Follow-up: Follow up with your doctor in about one week as needed. Call for an appointment. Summary of care provided to patient. Understanding of the discharge instructions verbalized by patient. (Electronically signed by Maryjane Galan A.R.N.P. 11/21/2016 12:59)
--- NOTE | 2016-11-20 22:25 | ED NURSING NOTES ---
Clinical Report - Nurses [facility] [address] [place] [address] 11/20/2016 22:00 Patient: MOISES CANALES TRIAGE Triage time 22:03 Nov 20 2016. Acuity: LEVEL 4. Chief Complaint: INJURY TO LEFT ANKLE. --22:06 Lg Coto R.N. 22:03 11/20/16. BP: 122/75. HR: 85. RR: 20. O2 saturation: 100%. Temp: 97.6 F. Pain level now 07/03. --22:06 Lg Coto R.N. Weight: 74.8 kg stated. Height/Length: 71 inches Per Patient. BMI: 23. Growth Chart Percentile: Weight: 89.6%. Height/Length: 99.6%. --22:05 Lg Coto R.N. Medications None. --22:05 Lg Coto R.N. Allergies No Known Drug Allergy. --22:05 Lg Coto R.N. History Arrived by private vehicle. Historian: patient. Accompanied by family. This occurred just prior to arrival. Occurred at home. Mechanism of injury: fell. ( was running up cement stairs and fell landed on hands but ankle hit the stair.). No numbness, tingling, weakness, neck pain or back pain. 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 PAST MEDICAL HX: Tetanus status: up-to-date. Immunizations: up-to-date. SOCIAL HX: Never smoker. No alcohol use or drug use. SELF HARM ASSESSMENT: A self harm assessment was performed. The patient answered "no" to the question "Have you recently felt down, depressed, or hopeless?" and "Do you have thoughts of harming or killing yourself?". FALL RISK ASSESSMENT: Fall risk assessment completed. No fall risk identified. NUTRITIONAL RISK ASSESSMENT: The nutritional risk assessment revealed no deficiencies. FUNCTIONAL ASSESSMENT: Functional assessment: no impairments noted. LEARNING NEEDS ASSESSMENT: The learning needs assessment revealed no barriers. ABUSE ASSESSMENT: Abuse assessment: (yes) The patient was asked "Do you feel safe in your home?". SKIN INTEGRITY ASSESSMENT: Skin integrity risk assessment completed. No skin integrity risk identified. --22:06 Lg Coto R.N. PROBLEMS: Biliary Colic. Abdominal Pain. Gallstone(s). Spotting, . Threatened . . Depression. Immunizations. LNMP - Last Normal Menstrual Period. Suicidal Ideation. --22: Lg Coto R.N. ADDITIONAL SURGERIES: no known surgeries. Interventions ID band on patient. --22:06 Lg Coto R.N. PHYSICAL ASSESSMENT To room via wheelchair. GENERAL / NEURO / PSYCH: Oriented X 4. Alert. Appears in no acute distress. EXTREMITIES: Capillary refill is less than 2 seconds in the extremities. Extremity pulses are within normal limits. Pain with weight bearing. Neuro-vascular status intact to the extremity. Left ankle: tenderness and swelling. SKIN: Skin intact. Skin is warm and dry. --22:07 Lg Coto R.N. NURSING PROGRESS NOTES The plan of care for this patient includes an assessment with efforts to address patient positioning and appropriate ambient lighting; impairment of the musculoskeletal system. Cold pack applied. Reassurance given. Call light placed in reach. Side rails up x 1. Bed placed in lowest position. Brakes of bed on. --22:07 Lg Coto R.N. DISPOSITION / DISCHARGE Departure time: 22:48 Nov 20 2016. Condition at departure: improved. No learning barriers present. Discharge instructions provided and reviewed with the patient. Reviewed warnings. Reviewed medication(s). Treatments reviewed. Patient verbalized understanding. Written instructions provided in French. The patient was discharged home and accompanied by spouse. She left the Emergency Department ambulatory and via private vehicle. Spouse driving. --22:48 Lg Coto R.N. 22:03 11/20/16. BP: 122/75. HR: 85. RR: 20. O2 saturation: 100%. Temp: 97.6 F. Pain level now 10/10. --22:48 Lg Coto R.N. Locked/Released at 11/21/2016 7:04 by Lg Coto R.N.
--- NOTE | 2016-11-20 22:25 | ED ORDER SUMMARY ---
..... Patient: MOISES CANALES OrderSheet [facility] VisitID: [id number] [address] [place] [address] 20y, F Registration Date/Time: 11/20/2016 ORDER SHEET Weight: 74.8 kg (stated) Allergies: No Known Drug Allergy GENERAL ORDERS: Foot 3V Left Urgent (22:09 11/20/2016 Agustin A.R.N.P.) ([facility] 22:12 [facility]) MEDICATION ORDERS: IV FLUIDS: ORDER SHEET NOTES: [Electronically signed by Lg Coto R.N. (07:04 11/21/2016)] [Electronically signed by Maryjane Galan.R.N.P. (12:59 11/21/2016)] [Electronically locked/signed by Lg Coto R.N. (07:04 11/21/2016)]
--- NOTE | 2016-11-20 23:00 | DIAGNOSTIC IMAGING REPORT ---
PROCEDURE: XR FOOT 3 VIEWS - LEFT INDICATION: TRAUMA/INJURY TECHNIQUE: Three views of the left foot. COMPARISON: None. FINDINGS: Normal mineralization. No fractures. Normal osseous alignment. No suspicious soft-tissue calcification or radiodense foreign bodies. IMPRESSION: 1. Normal left foot.
--- NOTE | 2016-11-21 12:59 | ED MED RECONCILIATION SUMMARY ---
Patient: MOISES CANALES Medication Reconciliation Report [facility] VisitID: [id number] [address] [place] [address] 20y, F Registration Date/Time: 11/20/2016 Weight: 74.8 kg Height/Length: 71 in. BMI: 23.0 ALLERGIES: No Known Drug Allergy The patient's Home Medications are listed below: NONE. The source(s) of the original Home Medication information: Not obtained. The following Medications were given to the patient in the Emergency Department: None. The following Medications were prescribed to the patient: None.
--- NOTE | 2016-11-21 12:59 | ED MAR SUMMARY ---
..... Medication Administration Record [facility] [address] [place], [place] [id number] Patient: MOISES CANALES Visit ID: [id number] 20y, F Weight: 74.8 kg Height/Length: 71 in BMI: 23 ALLERGIES: No Known Drug Allergy
--- NOTE | 2016-11-21 12:59 | ED DISCHARGE INSTRUCTIONS ---
Patient: MOISES CANALES General Instructions [facility] VisitID: [id number] [place] [address] 20y, F Registration Date/Time: 11/20/2016 Single contusion to the left foot.No hematoma or skin abrasion. INSTRUCTIONS Apply ice for 20 minutes four times a day for one until better. Don't apply ice directly to skin. Elevate affected areas above chest level for one days until better. Warnings: GENERAL WARNINGS: Return or contact your physician immediately if your condition worsens or changes unexpectedly, if not improving as expected, or if other problems arise. Specifically return if problem worsens. Follow-up: Follow up with your doctor in about one week as needed. Call for an appointment. Summary of care provided to patient. Understanding of the discharge instructions verbalized by patient. ADDITIONAL INFORMATION Contusion: Foot You have a CONTUSION of your foot. This causes local pain, swelling and sometimes bruising. There are no broken bones. This injury may take from a few days to a few weeks to heal. Home Care: 1) Keep your LEG elevated to reduce pain and swelling. This is very important during the first 48 hours. If walking causes pain, stay off the injured leg until you can walk without pain. 2) If CRUTCHES have been advised, do not bear full weight on the injured leg until you can do so without pain. You may return to sports when you are able to hop and run on the injured leg without pain. 3) Make an ice pack (ice cubes in a plastic bag, wrapped in a towel) and apply for 20 minutes every 1-2 hours the first day. Continue this 3-4 times a day until the swelling goes down. 4) You may use acetaminophen (Tylenol) or ibuprofen (Motrin, Advil) to control pain, unless another pain medicine was prescribed. [ NOTE : If you have chronic liver or kidney disease or ever had a stomach ulcer or GI bleeding, talk with your doctor before using these medicines.] Follow Up with your doctor or this facility if you are not starting to improve within the next THREE days. [NOTE: If X-rays were taken, they will be reviewed by a radiologist. You will be notified of any new findings that may affect your care.] Get Prompt Medical Attention if any of the following occur: -- Pain or swelling increases -- Toes become cold, blue, numb or tingly -- Redness, warmth or drainage from the skin You have been given the following additional information: Contusion, Foot (Electronically signed by Maryjane Galan A.R.N.P. 11/21/2016 12:59)
--- NOTE | 2016-11-21 12:59 | ED MAR SUMMARY ---
..... Medication Administration Record [facility] [address] [place], [place] [id number] Patient: MOISES CANALES Visit ID: [id number] 20y, F Weight: 74.8 kg Height/Length: 71 in BMI: 23 ALLERGIES: No Known Drug Allergy
--- NOTE | 2016-11-21 12:59 | ED MED RECONCILIATION SUMMARY ---
Patient: MOISES CANALES Medication Reconciliation Report [facility] VisitID: [id number] [address] [place] [address] 20y, F Registration Date/Time: 11/20/2016 Weight: 74.8 kg Height/Length: 71 in. BMI: 23.0 ALLERGIES: No Known Drug Allergy The patient's Home Medications are listed below: NONE. The source(s) of the original Home Medication information: Not obtained. The following Medications were given to the patient in the Emergency Department: None. The following Medications were prescribed to the patient: None.
== END 2016-11-20 22:40 | disposition home or self-care (01) ==
LOC: ED SRH 21:59
DX: S90.32XA Contusion of left foot, initial encounter (principal); W10.9XXA Fall (on) (from) unspecified stairs and steps, initial encounter; Y93.02 Activity, running; Y92.009 Unspecified place in unspecified non-institutional (private) residence as the place of occurrence of the external cause; Y99.9 Unspecified external cause status

== ENCOUNTER 2016-12-13 19:22 | Emergency (ER) | payer OTHER ==
--- NOTE | 2016-12-13 21:40 | ED CLINICAL REPORT ---
Clinical Report - Physicians/Mid Levels [facility] [address] [place] [address] 12/13/2016 19:21 Patient: MOISES CANALES Time Seen: 19:45; initial patient contact, initial documentation, patient care assumed. Arrived- By private vehicle. Historian- patient. HISTORY OF PRESENT ILLNESS Chief Complaint: ABDOMINAL PAIN. At its maximum, severity described as severe. When seen in the E.D., severity described as severe. Modifying factors. Not worsened by anything. Not relieved by anything. This started yesterday and is still present. It was abrupt in onset and has been constant. It is described as "pain" and it is described as located in the suprapubic area. The patient has had nausea. No loss of appetite, vomiting or diarrhea. No recent travel. Similar symptoms previously: ( txed here 10/30 for abd pain, txed here again 11/07 for abd pain). Recent medical care: The patient was seen recently in a clinic. ( went to clinic and found out she was ). REVIEW OF SYSTEMS No constipation, black stools, hematemesis, bloody stools or fever. No chest pain or difficulty breathing. She has had difficulty with urination, and pain on urination. The patient has had urinary frequency. Currently : In 1st trimester. confirmed with urine test. Has had no care. G 4. P 1. Ab 2. All systems otherwise negative, except as recorded above. PAST HISTORY See nurses notes. PROBLEMS: Abdominal Pain. Gallstone(s). Depression. --19:31 Yolanda Faye R.N. ADDITIONAL SURGERIES: no known surgeries. SOCIAL HISTORY Never smoker. No alcohol use or drug use. No recent travel. Is a local resident. FAMILY HISTORY Negative. ADDITIONAL NOTES The nursing notes have been reviewed with agreement regarding the chief complaint, HPI, ROS, PMH and patient medications and allergies. PHYSICAL EXAM Vital Signs: 12/13/2016 19:29 BP: 113/58. HR: 98. RR: 18. O2 saturation: 100%. Temp: 98.0 F. Have been reviewed as normal and appear to be correct. Appearance: Alert. Oriented X3. No acute distress. Eyes: Pupils equal, round and reactive to light. Eyes normal inspection. Neck: Normal inspection. Neck supple. CVS: Normal heart rate and rhythm. Heart sounds normal. Pulses normal. Respiratory: No respiratory distress. Breath sounds normal. Chest nontender. Abdomen: Soft. Tenderness in the suprapubic area. Bowel sounds normal. No organomegaly. No mass. Tenderness present. Back: Normal inspection. : Normal external exam. A moderate amount of thick, yellow and malodorous vaginal discharge present. Bimanual exam normal. Skin: Skin warm and dry. Normal skin color. No rash. Normal skin turgor. Extremities: Extremities exhibit normal ROM. No lower extremity edema. Neuro: Oriented X 3. No motor deficit. No sensory deficit. LABS, X-RAYS, AND EKG Pelvic Sonogram: . corpeous luteum present too early to r/o ectopic verbal report from [employer]. Interpretation time: 2129. Laboratory Tests: Urinalysis: (OBEY: 12/13/2016 19:25) ( [facility] 12/13/2016 19:59) Final results Test Result Flag Units (Reference) URINE COLOR YELLOW URINE APPEARANCE CLEAR URINE GLUCOSE NEGATIVE (NEGATIVE) URINE BILIRUBIN NEGATIVE (NEGATIVE) URINE KETONE NEGATIVE (NEGATIVE) URINE SPECIFIC GRAVITY 1.025 (1.010-1.030) URINE PH 6.5 (5.0-8.0) URINE PROTEIN NEGATIVE (NEGATIVE) URINE UROBILINOGEN 0.2 EU/dL (0.2-1.0) URINE NITRITE NEGATIVE (NEGATIVE) URINE BLOOD NEGATIVE (NEGATIVE) URINE LEUKOCYTE ESTERASE NEGATIVE (NEGATIVE) URINE RBC 0-1 rbc/hpf (0-1) URINE WBC 3-5 wbc/hpf (0-1) URINE EPITHELIAL CELLS >15 EPI/hpf (0-5) URINE BACTERIA MODERATE (2+ TO 3+) (NONE SEEN) URINE COMMENT N Urine: (OBEY: 12/13/2016 19:25) ( [facility] 12/13/2016 19:48) Final results Test Result Flag Units (Reference) URINE POSITIVE CBC w Diff: (OBEY: 12/13/2016 20:12) ( MsgRcvd 12/13/2016 20:27) Final results Test Result Flag Units (Reference) WHITE BLOOD COUNT 8.9 K/uL (4.5-11.5) RED BLOOD COUNT 4.37 M/uL (4.00-5.20) HEMOGLOBIN 11.7 L gm/dL (12.0-16.0) HEMATOCRIT 35.5 L % (36.0-46.0) MEAN CELL VOLUME 81 fL (80-100) MEAN CORPUSCULAR HGB 27 pg (26-34) MEAN CORPUSCULAR HGB CONC 33 g/dL (31-37) RED CELL DISTRIBUTION WIDTH 15.5 H % (11.6-14.8) PLATELET COUNT 308 K/uL (150-400) NEUTROPHIL % 58.5 % (50-75) LYMPH % 31.9 % (25-40) MONO % 8.0 % (3-14) EOSINOPHIL % 1.2 % (0-4) BASOPHIL % 0.4 % (0-2) CMP: (OBEY: 12/13/2016 20:12) ( MsgRcvd 12/13/2016 20:48) Final results Test Result Flag Units (Reference) GLUCOSE 92 mg/dL (70-110) BUN 15 mg/dL (7-18) CREATININE 0.7 mg/dL (0.6-1.3) Estimated GFR >60 mL/min Estimated GFR- >60 mL/min Note: Persistent reduction over 3 months in eGFR<60 mL/min/1.73 m2 defines CKD. Patients with eGFR values>=60 mL/min/1.73 m2 may also have CKD if evidence ofpersistent proteinuria. Additional information may be foundat www.kidney.org. SODIUM 141 mmol/L (136-145) POTASSIUM 3.6 mmol/L (3.5-5.1) CHLORIDE 108 H mmol/L (98-107) CARBON DIOXIDE 23 mmol/L (21-32) CALCIUM 9.0 mg/dL (8.5-10.1) TOTAL PROTEIN 6.7 g/dL (6.4-8.2) ALBUMIN 3.3 g/dL (3.3-5.0) BILIRUBIN, TOTAL 0.2 mg/dL (0.0-1.0) ALKALINE PHOSPHATASE 78 U/L (46-116) AST (SGOT) 13 L U/L (15-37) ALT (SGPT) 21 U/L (12-78) BETA HCG, QUANTITATIVE 389 mIU/mL REFERENCE RANGE:Adult Males: <2 mIU/mLNon- Females: <6 mIU/mL Females:Approximate Approximate hCGGestational Age Range (mIU/mL) 0-1 week 0-501-2 weeks 40-3002-3 weeks 100-96203-3 weeks 500-83042-8 months 5,000-200,0002-3 months 10,000-100,0002nd trimester 3,000-50,0003rd trimester 1,000-50,000 Wet Prep: (OBEY: 12/13/2016 20:36) ( MsgRcvd 12/13/2016 21:22) Final results SPECIMEN DESCRIPTION: CERVIX Test Result Flag Units (Reference) WET MOUNT CLUE CELLS:: FEW * EPITHELIAL CELLS: MANY -- SOURCE?: CERVIX WHITE BLOOD CELLS: MODERATE TRICHOMONAS:: NONE -- YEAST:: NONE . PROGRESS AND PROCEDURES Course of Care: 19:46 12/13/16. pt has stacy for narcs and #10 er visits, see report for full details [employer] informing that pt had 0900 US appt this am that she was a no show for. Patient counseled in person regarding the patient's stable condition, test results and diagnosis. 21:37. Differential Diagnosis: Other possible considerations: uti, pyelo, ectopic, std, bv, yeast, appy. Above considerations are based on history, physical exam, reassessment, laboratory data and other information. Differential diagnosis was discussed with patient. Disposition: Discharged home in good and unchanged condition (21:40). Condition: good and stable. CLINICAL IMPRESSION Acute mild bacterial vaginitis Acute suprapubic abdominal pain of unknown cause. INSTRUCTIONS Warnings: Further evaluation is necessary in order to conduct further tests. It is very important to follow up with a physician. GENERAL WARNINGS: Return or contact your physician immediately if your condition worsens or changes unexpectedly, if not improving as expected, or if other problems arise. SPECIFICALLY, return if you develop pain in the abdomen or pelvis, fever, the inability to keep fluids down, blood in vomitus, blood in diarrhea, fainting, lightheadedness or vaginal bleeding. Prescription Medications: Flagyl 500 mg: Take 1 tablet orally every 12 hours for 7 days. No refill. Substitution is permissible. Follow-up: Follow up with an receiver/laborer in about three days even if well. Call for an appointment. Reason for referral: need to start care and possibley repeat US. Summary of care provided to patient. Understanding of the discharge instructions verbalized by patient. (Electronically signed by Maryjane Galna A.R.N.P. 12/13/2016 22:23)
--- NOTE | 2016-12-13 21:41 | ED ORDER SUMMARY ---
..... Patient: MOISES CANALES OrderSheet [facility] VisitID: [id number] [place] [address] 20y, F Registration Date/Time: 12/13/2016 ORDER SHEET Weight: 81.6 kg (stated) Allergies: No Known Drug Allergy GENERAL ORDERS: Urinalysis Urgent (19:34 12/13/2016 EInderbitzen R.N. verbal order read back to HBivens A.R.N.P.) (19:46 brand eins [employer] ER Prosthetic Assistant) Urine Urgent (19:34 12/13/2016 EInderbitzen R.N. verbal order read back to HBivens A.R.N.P.) (19:46 brand eins [employer] ER Prosthetic Assistant) US OB 1st Trimester w Transvag (3-4 weeks) Urgent (19:56 12/13/2016 HBivens A.R.N.P.) (Ack 20:07 SRedmond) (22:15 SRoberts R.N.) CBC w Diff Urgent (19:57 12/13/2016 HBivens A.R.N.P.) (Ack 20:07 SRedmond) (20:08 EInderbitzen R.N.) CMP Urgent (19:57 12/13/2016 HBivens A.R.N.P.) (Ack 20:07 SRedmond) (20:08 EInderbitzen R.N.) Serum Quantitative Urgent (19:57 12/13/2016 HBivens A.R.N.P.) (Ack 20:07 SRedmond) (20:08 EInderbitzen R.N.) Pelvic Exam Setup (19:57 12/13/2016 HBivens A.R.N.P.) (Ack 20:07 SRedmond) (20:12 CHategekimana) Wet Prep (Cervix) (cervix) Urgent (21:05 12/13/2016 HBivens A.R.N.P.) (Ack 21:09 SRedmond) (22:15 SRoberts R.N.) MEDICATION ORDERS: IV FLUIDS: ORDER SHEET NOTES: [Electronically signed by Trish Correa R.N. (22:15 12/13/2016)] [Electronically signed by Maryjane Galan (22:23 12/13/2016)] [Electronically locked/signed by Trish Correa R.N. (:15 12/13/2016)]
--- NOTE | 2016-12-13 21:41 | ED ORDER SUMMARY ---
..... Patient: MOISES CANALES OrderSheet [facility] VisitID: [id number] [place] [address] 20y, F Registration Date/Time: 12/13/2016 ORDER SHEET Weight: 81.6 kg (stated) Allergies: No Known Drug Allergy GENERAL ORDERS: Urinalysis Urgent (19:34 12/13/2016 EInderbitzen R.N. verbal order read back to HBivens A.R.N.P.) (19:46 Táximo ER Admin Assistant) Urine Urgent (19:34 12/13/2016 EInderbitzen R.N. verbal order read back to HBivens A.R.N.P.) (19:46 Táximo ER Admin Assistant) US OB 1st Trimester w Transvag (3-4 weeks) Urgent (19:56 12/13/2016 HBivens A.R.N.P.) (Ack 20:07 SRedmond) (22:15 SRoberts R.N.) CBC w Diff Urgent (19:57 12/13/2016 HBivens A.R.N.P.) (Ack 20:07 SRedmond) (20:08 EInderbitzen R.N.) CMP Urgent (19:57 12/13/2016 HBivens A.R.N.P.) (Ack 20:07 SRedmond) (20:08 EInderbitzen R.N.) Serum Quantitative Urgent (19:57 12/13/2016 HBivens A.R.N.P.) (Ack 20:07 SRedmond) (20:08 EInderbitzen R.N.) Pelvic Exam Setup (19:57 12/13/2016 HBivens A.R.N.P.) (Ack 20:07 SRedmond) (20:12 CHategekimana) Wet Prep (Cervix) (cervix) Urgent (21:05 12/13/2016 HBivens A.R.N.P.) (Ack 21:09 SRedmond) (22:15 SRoberts R.N.) MEDICATION ORDERS: IV FLUIDS: ORDER SHEET NOTES: [Electronically signed by Trish Correa R.N. (22:15 12/13/2016)] [Electronically signed by Maryjane Galan (22:23 12/13/2016)] [Electronically locked/signed by Trish Correa R.N. (:15 12/13/2016)]
--- NOTE | 2016-12-13 21:41 | ED NURSING NOTES ---
Clinical Report - Nurses [facility] [address] [place] [address] 12/13/2016 19:21 Patient: MOISES CANALES TRIAGE Triage time 19:Dec 13 2016. Acuity: LEVEL 3. Chief Complaint: PELVIC PAIN and PAINFUL URINATION and FREQUENCY. 19:29 12/13/16. SEPSIS SCREEN: Sepsis Screen. Negative (no infection suspected/documented). --19:33 Yolanda Faye R.N. 19:12/13/16. BP: 113/58. HR: 98. RR: 18. O2 saturation: 100%. Temp: 98.0 F. Pain level now 9/10. --19:33 Yolanda Faye R.N. Weight: 81.6 kg stated. Height/Length: 65 inches Per Patient. BMI: 30. Growth Chart Percentile: Weight: 94.4%. Height/Length: 60.1%. --19:29 Yolanda Faye R.N. Medications None. --19:30 Yolanda Faye R.N. Allergies No Known Drug Allergy. --19:30 Yolanda Faye R.N. Medication/allergy information source: the patient. --19:33 Yolanda Faye R.N. History Arrived by private vehicle. Historian: patient. Accompanied by family. This started yesterday. She has had nausea. Treatment DIRECTOR OF ACQUISITION MARKETING: None. PAST MEDICAL HX: Last normal menstrual period- . 3. Para 1. Abortions 2. SOCIAL HX: Never smoker. No alcohol use or drug use. No infectious disease exposure. ABUSE ASSESSMENT: No report of abuse. SELF HARM ASSESSMENT: A self harm assessment was performed. The patient answered "no" to the question "Have you recently felt down, depressed, or hopeless?", "Have you noticed less interest or pleasure in doing things?", "Do you have thoughts of harming or killing yourself?", "Are you here because you tried to hurt yourself?", "Have you ever tried to hurt yourself before today?", "Have you recently had thoughts about harming or killing others?" and "Do you have any dangerous items in your possession?". NUTRITIONAL RISK ASSESSMENT: The nutritional risk assessment revealed no deficiencies. FUNCTIONAL ASSESSMENT: Functional assessment: no impairments noted. LEARNING NEEDS ASSESSMENT: The learning needs assessment revealed no barriers. SKIN INTEGRITY ASSESSMENT: Skin integrity risk assessment completed. No skin integrity risk identified. --19:33 Yolanda Faye R.N. PROBLEMS: Abdominal Pain. Gallstone(s). Depression. --19:31 Yolanda Faye R.N. ADDITIONAL SURGERIES: no known surgeries. Interventions ID band on patient. --19:33 Yolanda Faye R.N. NURSING PROGRESS NOTES 19:34 12/13/16. The initial plan of care for this patient includes an assessment with efforts to address the presence of pain; impairment of the genitourinary system. This plan of care was discussed with the patient. Patient gowned. Reassurance given. Patient ID band checked for patient name and birthdate: patient confirmed. Instructions provided to collect clean catch urine and patient verbalized understanding. Clean catch urine collected; sample sent to lab for urinalysis and drug screen. Specimen labeled in the presence of the patient. Call light placed in reach. Side rails up x 1. Bed placed in lowest position. Brakes of bed on. Patient ready for evaluation- ED physician notified. --19:34 Yolanda Faye R.N. 20:12 12/13/16. Patient ID band checked for patient name and birthdate: patient confirmed. Blood samples drawn from the right antecubital space with syringe and 23g butterfly by nurse ; labeled in presence of the patient and sent to lab: edmund set. --20:15 Yolanda Faye R.N. 20:40 12/13/16. PELVIC EXAM: Pelvic exam performed by CHOPPER GUN OPERATOR. Assisted by one tech. Preparation: pelvic tray and culture medium. Procedure: speculum and bimanual exam. Specimens collected and sent to lab: GC, chlamydia and wet prep. Status post-procedure: she was stable. Total time of assist / procedure: 15 minutes. --21:28 Yolanda Faye R.N. 21:28 12/13/16. ( train electronic technician here, chaperoned by TEE Chambers for procedure). --21:28 Yolanda Faye R.N. Political Researcher provided for the general exam by the physician. ( for US). --21:34 Trish Correa R.N. 21:34 12/13/16. BP: 108/63. HR: 73. RR: 20. O2 saturation: 100% on room air. Temp: deferred. Pain level now: 06/03. --21:35 Trish Correa R.N. DISPOSITION / DISCHARGE 21:50. Condition at departure: improved. No learning barriers present. Reviewed medication(s) side effects, precautions, dosing and course information. Prescription(s) given to the patient. Patient and spouse verbalized understanding. Written instructions provided in Sami. The patient was discharged home and accompanied by spouse. She left the Emergency Department ambulatory and via private vehicle. Spouse driving. Medication list reviewed and validated. --22:14 Trish Correa R.N. 21:34 12/13/16. BP: 108/63. HR: 73. RR: 20. O2 saturation: 100% on room air. Temp: deferred. Pain level now: 06/03. 19:29 12/13/16. BP: 113/58. HR: 98. RR: 18. O2 saturation: 100%. Temp: 98.0 F. Pain level now 06/03. --22:14 Trish Correa R.N. Locked/Released at 12/13/2016 22:15 by Trish Correa R.N.
--- NOTE | 2016-12-13 21:41 | ED NURSING NOTES ---
Clinical Report - Nurses [facility] [address] [place] [address] 12/13/2016 19:21 Patient: MOISES CANALES TRIAGE Triage time 19:Dec 13 2016. Acuity: LEVEL 3. Chief Complaint: PELVIC PAIN and PAINFUL URINATION and FREQUENCY. 19:29 12/13/16. SEPSIS SCREEN: Sepsis Screen. Negative (no infection suspected/documented). --19:33 Yolanda Faye R.N. 19:12/13/16. BP: 113/58. HR: 98. RR: 18. O2 saturation: 100%. Temp: 98.0 F. Pain level now 9/10. --19:33 Yolanda Faye R.N. Weight: 81.6 kg stated. Height/Length: 65 inches Per Patient. BMI: 30. Growth Chart Percentile: Weight: 94.4%. Height/Length: 60.1%. --19:29 Yolanda Faye R.N. Medications None. --19:30 Yolanda Faye R.N. Allergies No Known Drug Allergy. --19:30 Yolanda Faye R.N. Medication/allergy information source: the patient. --19:33 Yolanda Faye R.N. History Arrived by private vehicle. Historian: patient. Accompanied by family. This started yesterday. She has had nausea. 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 PAST MEDICAL HX: Last normal menstrual period- . 3. Para 1. Abortions 2. SOCIAL HX: Never smoker. No alcohol use or drug use. No infectious disease exposure. ABUSE ASSESSMENT: No report of abuse. SELF HARM ASSESSMENT: A self harm assessment was performed. The patient answered "no" to the question "Have you recently felt down, depressed, or hopeless?", "Have you noticed less interest or pleasure in doing things?", "Do you have thoughts of harming or killing yourself?", "Are you here because you tried to hurt yourself?", "Have you ever tried to hurt yourself before today?", "Have you recently had thoughts about harming or killing others?" and "Do you have any dangerous items in your possession?". NUTRITIONAL RISK ASSESSMENT: The nutritional risk assessment revealed no deficiencies. FUNCTIONAL ASSESSMENT: Functional assessment: no impairments noted. LEARNING NEEDS ASSESSMENT: The learning needs assessment revealed no barriers. SKIN INTEGRITY ASSESSMENT: Skin integrity risk assessment completed. No skin integrity risk identified. --19:33 Yolanda Faye R.N. PROBLEMS: Abdominal Pain. Gallstone(s). Depression. --19:31 Yolanda Faye R.N. ADDITIONAL SURGERIES: no known surgeries. Interventions ID band on patient. --19:33 Yolanda Faye R.N. NURSING PROGRESS NOTES 19:34 12/13/16. The initial plan of care for this patient includes an assessment with efforts to address the presence of pain; impairment of the genitourinary system. This plan of care was discussed with the patient. Patient gowned. Reassurance given. Patient ID band checked for patient name and birthdate: patient confirmed. Instructions provided to collect clean catch urine and patient verbalized understanding. Clean catch urine collected; sample sent to lab for urinalysis and drug screen. Specimen labeled in the presence of the patient. Call light placed in reach. Side rails up x 1. Bed placed in lowest position. Brakes of bed on. Patient ready for evaluation- ED physician notified. --19:34 Yolanda Faye R.N. 20:12 12/13/16. Patient ID band checked for patient name and birthdate: patient confirmed. Blood samples drawn from the right antecubital space with syringe and 23g butterfly by nurse ; labeled in presence of the patient and sent to lab: edmund set. --20:15 Yolanda Faye R.N. 20:40 12/13/16. PELVIC EXAM: Pelvic exam performed by MINOR LEAGUE BASEBALL PLAYER. Assisted by one tech. Preparation: pelvic tray and culture medium. Procedure: speculum and bimanual exam. Specimens collected and sent to lab: GC, chlamydia and wet prep. Status post-procedure: she was stable. Total time of assist / procedure: 15 minutes. --21:28 Yolanda Faye R.N. 21:28 12/13/16. ( swimming pool service technician here, chaperoned by TEE Chambers for procedure). --21:28 Yolanda Faye R.N. Cargo Station Worker provided for the general exam by the physician. ( for US). --21:34 Trish Correa R.N. 21:34 12/13/16. BP: 108/63. HR: 73. RR: 20. O2 saturation: 100% on room air. Temp: deferred. Pain level now: 06/03. --21:35 Trish oCrrea R.N. DISPOSITION / DISCHARGE 21:50. Condition at departure: improved. No learning barriers present. Reviewed medication(s) side effects, precautions, dosing and course information. Prescription(s) given to the patient. Patient and spouse verbalized understanding. Written instructions provided in Slovenian. The patient was discharged home and accompanied by spouse. She left the Emergency Department ambulatory and via private vehicle. Spouse driving. Medication list reviewed and validated. --22:14 Trish Correa R.N. 21:34 12/13/16. BP: 108/63. HR: 73. RR: 20. O2 saturation: 100% on room air. Temp: deferred. Pain level now: 06/03. 19:29 12/13/16. BP: 113/58. HR: 98. RR: 18. O2 saturation: 100%. Temp: 98.0 F. Pain level now 06/03. --22:14 Trish Correa R.N. Locked/Released at 12/13/2016 22:15 by Trish Correa R.N.
--- NOTE | 2016-12-13 22:23 | ED MAR SUMMARY ---
..... Medication Administration Record [facility] [address] [place], [place] [id number] Patient: MOISES CANALES Visit ID: [id number] 20y, F Weight: 81.6 kg Height/Length: 65 in BMI: 30 ALLERGIES: No Known Drug Allergy
--- NOTE | 2016-12-13 22:23 | ED MED RECONCILIATION SUMMARY ---
Patient: MOISES CANALES Medication Reconciliation Report [facility] VisitID: [id number] [place] [address] 20y, F Registration Date/Time: 12/13/2016 Weight: 81.6 kg Height/Length: 65 in. BMI: 30.0 ALLERGIES: No Known Drug Allergy The patient's Home Medications are listed below: NONE. The source(s) of the original Home Medication information: patient The following Medications were given to the patient in the Emergency Department: None. The following Medications were prescribed to the patient: Flagyl 500 mg: Take 1 tablet orally every 12 hours for 7 days. No refill. Substitution is permissible. -- Maryjane Galan A.R.N.P.
--- NOTE | 2016-12-13 22:23 | ED MED RECONCILIATION SUMMARY ---
Patient: MOISES CANALES Medication Reconciliation Report [facility] VisitID: [id number] [place] [address] 20y, F Registration Date/Time: 12/13/2016 Weight: 81.6 kg Height/Length: 65 in. BMI: 30.0 ALLERGIES: No Known Drug Allergy The patient's Home Medications are listed below: NONE. The source(s) of the original Home Medication information: patient The following Medications were given to the patient in the Emergency Department: None. The following Medications were prescribed to the patient: Flagyl 500 mg: Take 1 tablet orally every 12 hours for 7 days. No refill. Substitution is permissible. -- Maryjane Galan A.R.N.P.
--- NOTE | 2016-12-13 22:23 | ED MAR SUMMARY ---
..... Medication Administration Record [facility] [address] [place], [place] [id number] Patient: MOISES CANALES Visit ID: [id number] 20y, F Weight: 81.6 kg Height/Length: 65 in BMI: 30 ALLERGIES: No Known Drug Allergy
--- NOTE | 2016-12-13 22:23 | ED DISCHARGE INSTRUCTIONS ---
Patient: MOISES CANALES General Instructions [facility] VisitID: [id number] [place] [address] 20y, F Registration Date/Time: 12/13/2016 Acute mild bacterial vaginitis Acute suprapubic abdominal pain of unknown cause. INSTRUCTIONS Warnings: Further evaluation is necessary in order to conduct further tests. It is very important to follow up with a physician. GENERAL WARNINGS: Return or contact your physician immediately if your condition worsens or changes unexpectedly, if not improving as expected, or if other problems arise. SPECIFICALLY, return if you develop pain in the abdomen or pelvis, fever, the inability to keep fluids down, blood in vomitus, blood in diarrhea, fainting, lightheadedness or vaginal bleeding. Prescription Medications: Flagyl 500 mg: Take 1 tablet orally every 12 hours for 7 days. No refill. Substitution is permissible. Follow-up: Follow up with an president and chief executive officer in about three days even if well. Call for an appointment. Reason for referral: need to start care and possibley repeat US. Summary of care provided to patient. Understanding of the discharge instructions verbalized by patient. ADDITIONAL INFORMATION Abdominal Pain, Unknown Cause (Female) The exact cause of your abdominal (stomach) pain is not certain. This does not mean that this is something to worry about, or the right tests were not done. Everyone likes to know the exact cause of the problem, but sometimes with abdominal pain, there is no clear-cut cause, and this could be a good thing. The good news is that your symptoms can be treated, and you will feel better. Your condition does not seem serious now; however, sometimes the signs of a serious problem may take more time to appear. For this reason,it is important for you to watch for any new symptoms, problems,or worsening of your condition. Over the next few days, the abdominal pain may come and go, or be continuous. Other common symptoms can include nausea and vomiting. Sometimes it can be difficult to tell if you feel nauseous, you may just feel bad and not associate that feeling with nausea. Constipation, diarrhea, and a fever may go along with the pain. The pain may continue even if treated correctly over the following days. Depending on how things go, sometimes the cause can become clear and may require further or different treatment. Additional evaluations, medications, or tests may be needed. Home care Your health care provider may prescribe medications for pain, symptoms, or an infection. Follow the health care provider's instructions for taking these medications. General care Rest until your next exam. No strenuous activities. Try to find positions that ease discomfort. A small pillow placed on the abdomen may help relieve pain. Something warm on your abdomen (such as a heating pad) may help, but be careful not to burn yourself. Diet Do not force yourself to eat, especially if having cramps, vomiting, or diarrhea. Water is important so you do not get dehydrated. Soup may also be good. Sports drinks may also help, especially if they are not too acidic. Make sure you don't drink sugary drinks as this can make things worse. Take liquids in small amounts. Do not guzzle them. Caffeine sometimes makes the pain and cramping worse. Avoid dairy products if you have vomiting or diarrhea. Don't eat large amounts at a time. Wait a few minutes between bites. Eat a diet low in fiber (called a low-residue diet). Foods allowed include refined breads, white rice, fruit and vegetable juices without pulp, tender meats. These foods will pass more easily through the intestine. Avoid whole-grain foods, whole fruits and vegetables, meats, seeds and nuts, fried or fatty foods, dairy, alcohol and spicy foods until your symptoms go away. Follow-up care Follow up with your health care provider as instructed, or if your pain does not begin to improve in the next 24 hours. When to seek medical care Seek prompt medical care if any of the following occur: Pain gets worse or moves to the right lower abdomen New or worsening vomiting or diarrhea Swelling of the abdomen Unable to pass stool for more than three days Fever of 100.4F (38C) or higher, or as directed by your healthcare provider. Blood in vomit or bowel movements (dark red or black color) Jaundice (yellow color of eyes and skin) Weakness, dizziness Chest, arm, back, neck or jaw pain Unexpected vaginal bleeding or missed period Call 911 Call emergency services if any of the following occur: Trouble breathing Confusion Fainting or loss of consciousness Rapid heart rate Seizure Abdominal Pain,Possible Appendicitis [Repeat Exam, Female] Based on your visit today, the exact cause of your abdominal (stomach) pain is not certain. However, you do have some of the early signs of APPENDICITIS. Early in an appendix infection the symptoms can be similar to a simple "stomach ache" or "stomach flu". Therefore, the diagnosis can be hard to make. Since an appendix infection is a serious condition, it is important to know if this is the cause of your symptoms. WAITING for more time to pass and repeating the exam is the best way to find out whether you have appendicitis. Within the next 12-24 hours the cause of your stomach pain should become clear. It is important for you to watch for any new symptoms or worsening of your condition. (See below). Home Care: Rest until your next exam. No strenuous activities. Eat a diet low in fiber (called a low-residue diet). Foods allowed include refined breads, white rice, fruit and vegetable juices without pulp, tender meats. These foods will pass more easily through the intestine. Avoid whole-grain foods, whole fruits and vegetables, meats, seeds and nuts, fried or fatty foods, dairy, alcohol and spicy foods until your symptoms go away. In some cases, you may be asked not to eat or drink anything until you are re-examined. Return for another exam exactly as directed. Follow Up with your doctor or this facility as directed. Get Prompt Medical Attention if any of the following occur: Pain gets worse or moves to the right lower abdomen New or worsening vomiting or diarrhea Swelling of the abdomen Unable to pass stool for more than three days Fever of 100.4F (38C) or higher, or as directed by your healthcare provider Blood in vomit or bowel movements (dark red or black color) Weakness, dizziness or fainting Unexpected vaginal bleeding Abdominal Pain And Early [R/O Sab, Ectopic: Serial Q-Hcg's] Based on your visit today, we know you are . But, the exact cause of your abdominal (stomach) pain is not certain. Some pain or bleeding may occur in a NORMAL . But pain may also be a sign of a MISCARRIAGE or an ECTOPIC (baby growing in the Fallopian tube instead of the uterus). An ectopic is a very serious condition. It can lead to severe internal bleeding and even . Therefore, further tests are needed to find out the cause of your symptoms. These may include: ULTRASOUND - A pelvic ultrasound can detect a normal as early as 4-5 weeks of age. But, if the ultrasound test does not show the baby inside the uterus, it means that i) you have a normal less than 4 weeks old, ii) you are having or recently had a miscarriage or iii) you have an ectopic . QUANTITATIVE HCG - a test that measures the amount of hormone in your blood. Comparing today's test result to a repeat test in 48 hours shows whether or not you have a normal . LAPAROSCOPY - a surgical procedure where a tube with a light is placed inside the abdomen to look directly at the pelvic organs. This is used when it is not safe to wait 48 hours for blood test results. Important If you do have an ectopic , there is a small chance that the growing fetus can tear the Fallopian tube and cause severe internal bleeding. If this happens, there may be SUDDEN SEVERE LOWER ABDOMINAL PAIN, VAGINAL BLEEDING, WEAKNESS, DIZZINESS and sometimes FAINTING. If any of these symptoms occur: CALL AN AMBULANCE (call 911) or return immediately to the hospital. DO NOT DRIVE YOURSELF. DO NOT GO TO YOUR DOCTOR'S OFFICE OR TO A CLINIC. Home Care: Rest until your next exam. Do not perform any strenuous activity. Eat a light diet with foods that are easy to digest. Avoid sexual intercourse until all symptoms have gone away and you are cleared by your doctor. Follow Up with your doctor or this facility as advised for repeat blood testing. [NOTE: If you had an X-ray or ultrasound test, it will be reviewed by a specialist. You will be notified of any new findings that may affect your care.] Get Prompt Medical Attention if any of the following occur: Sudden or gradual worsening abdominal pain Fainting, dizziness or weakness when standing Heavy vaginal bleeding (soaking one pad an hour for three hours) Vaginal bleeding for more than 5 days Repeated vomiting or diarrhea Pain that moves to the right lower abdomen (stomach) Blood in vomit or bowel movements (dark red or black color) Fever of 100.4F (38C) or higher, or as directed by your healthcare provider Bacterial Vaginosis You have a bacterial infection of the vagina called bacterial vaginosis (BV). It may also be called gardnerella or non-specific vaginitis. BV occurs when the "bad" bacteria outnumber the "good" bacteria that are normally present in the vagina. Symptoms include foul-smelling vaginal discharge (most noticeable after vaginal intercourse). There may also be burning with urination. The burning is caused as the urine passes over the inflamed outer vaginal area. The cause of bacterial vaginosis is not certain. However, your risk is higher if you recently began a new sexual relationship, or have had many sex partners in the past. Your risk is also higher if you douche often. While bacterial vaginosis most often occurs only in sexually active women, this is not a true sexually transmitted disease. You did not get this from your partner. You cannot give it to your partner. The infection may be related to temporary changes in the pH of vaginal fluids after being exposed to semen. Home Care: Keep the genital area clean and free of discharge. Do this by wearing an absorbent sanitary pad and changing it often. Shower daily. When you shower, clean the outer vaginal area with plain soap and water. Do not douche during treatment unless advised to do so by your doctor. Routine douching after treatment is no longer recommended to clean the vagina. It raises your risk of vaginal infection and pelvic inflammatory disease. Avoid having sex until you have finished all antibiotic medicine and all symptoms have gone away. Wear cotton underwear or cotton-lined panty hose. Dont wear pants that are too tight. Limiting the number of sex partners you have lowers your risk of this and other vaginal infections, STDs, and HIV. Take all medicine as directed until it is gone, even if you are feeling better. If you dont do this, symptoms might return. Follow Up with your doctor if symptoms dont go away after the medicine is finished. Get Prompt Medical Attention if any of the following occur: Fever of 100.4F (38C) or higher, or as directed by your healthcare provider Lower abdominal pain Rash or joint pain Painful sores around the outer vaginal area or on your partners penis Metronidazole Oral tablet What is this medicine? METRONIDAZOLE ( troe NI da zole) is an antiinfective. It is used to treat certain kinds of bacterial and protozoal infections. It will not work for colds, flu, or other viral infections. How should I use this medicine? Take this medicine by mouth with a full glass of water. Follow the directions on the prescription label. Take your medicine at regular intervals. Do not take your medicine more often than directed. Take all of your medicine as directed even if you think you are better. Do not skip doses or stop your medicine early. Talk to your concrete boom operator regarding the use of this medicine in children. Special care may be needed. What side effects may I notice from receiving this medicine? Side effects that you should report to your doctor or health cattle care worker as soon as possible: allergic reactions like skin rash or hives, swelling of the face, lips, or tongue confusion, clumsiness difficulty speaking discolored or sore mouth dizziness fever, infection numbness, tingling, pain or weakness in the hands or feet trouble passing urine or change in the amount of urine redness, blistering, peeling or loosening of the skin, including inside the mouth seizures unusually weak or tired vaginal irritation, dryness, or discharge Side effects that usually do not require medical attention (report to your doctor or health cattle care worker if they continue or are bothersome): diarrhea headache irritability metallic taste nausea stomach pain or cramps trouble sleeping What may interact with this medicine? Do not take this medicine with any of the following medications: alcohol or any product that contains alcohol amprenavir oral solution cisapride disulfiram dofetilide dronedarone paclitaxel injection pimozide ritonavir oral solution sertraline oral solution sulfamethoxazole-trimethoprim injection thioridazine ziprasidone This medicine may also interact with the following medications: cimetidine lithium other medicines that prolong the QT interval (cause an abnormal heart rhythm) phenobarbital phenytoin warfarin What if I miss a dose? If you miss a dose, take it as soon as you can. If it is almost time for your next dose, take only that dose. Do not take double or extra doses. Where should I keep my medicine? Keep out of the reach of children. Store at room temperature below 25 degrees C (77 degrees F). Protect from light. Keep container tightly closed. Throw away any unused medicine after the expiration date. What should I tell my health care provider before I take this medicine? They need to know if you have any of these conditions: anemia or other blood disorders disease of the nervous system fungal or yeast infection if you drink alcohol containing drinks liver disease seizures an unusual or allergic reaction to metronidazole, or other medicines, foods, dyes, or preservatives or trying to get breast-feeding What should I watch for while using this medicine? Tell your doctor or health cattle care worker if your symptoms do not improve or if they get worse. You may get drowsy or dizzy. Do not drive, use machinery, or do anything that needs mental alertness until you know how this medicine affects you. Do not stand or sit up quickly, especially if you are an older patient. This reduces the risk of dizzy or fainting spells. Avoid alcoholic drinks while you are taking this medicine and for three days afterward. Alcohol may make you feel dizzy, sick, or flushed. If you are being treated for a sexually transmitted disease, avoid sexual contact until you have finished your treatment. Your sexual partner may also need treatment. You have been given the following additional information: Abdominal Pain, Unknown Cause, (Female) Abdominal Pain, Possible Appendicitis (Female) Abdominal Pain, Early Vaginitis, Bacterial Metronidazole Oral tablet (Electronically signed by Maryjane Galan A.R.N.P. 12/13/2016 22:23)
--- NOTE | 2016-12-13 22:43 | DIAGNOSTIC IMAGING REPORT ---
PROCEDURE: US OB 1ST TRIMESTER W/TRANSVAG INDICATION: POSSIBLE ECTOPIC TECHNIQUE: Simons scale, color, and spectral Doppler transabdominal and endovaginal sonographic images of the first trimester gravid uterus were obtained. COMPARISON: None during this . FINDINGS: TRANSABDOMINAL SCANS: The uterus is anteverted in position. Suboptimal images due to body habitus. No suspicious adnexal mass. TRANSVAGINAL SCANS: No evidence of intrauterine fluid collection or gestational sac. Fairly homogeneous myometrium without mass. The endometrium is mildly thickened. The cervix is closed. No abnormal vascular flow. Trace fluid in the cul-de-sac. The left ovary contains a hemorrhagic follicle measuring 14 mm. The right ovary contains another hemorrhagic follicle measuring 14 mm with peripheral vascularity. No mckay ovarian fluid. No suspicious adnexal masses or fluid. IMPRESSION: 1. No evidence of intrauterine . Correlate with serial Beta hCG levels and recommend re-imaging in 1 week if levels increase. 2. Normal ovaries with bilateral hemorrhagic corpus luteum.
== END 2016-12-13 21:50 | disposition home or self-care (01) ==
LOC: ED SRH 19:22
DX: O23.591 Infection of other part of genital tract in pregnancy, first trimester (principal); R10.9 Unspecified abdominal pain; Z3A.00 Weeks of gestation of pregnancy not specified
CPT/HCPCS: 90004; 90100; 90195; 90197; 93070; 95059

== ENCOUNTER 2016-12-28 09:40 | Outpatient (CLI) | payer OTHER ==
--- NOTE | 2016-12-28 11:39 | DIAGNOSTIC IMAGING REPORT ---
PROCEDURE: US OB 1ST TRIMESTER W/TRANSVAG INDICATION: LT SIDED PELVIC PAIN,MISSED PERIOD TECHNIQUE: Simons scale, color, and spectral Doppler transabdominal sonographic images of the first trimester gravid uterus were obtained. COMPARISON: 12/13/2016 ultrasound FINDINGS: TRANSABDOMINAL SCANS: The gravid uterus is anteverted in position and contains a fundal gestational sac with a moderate residual response. No perigestational hemorrhage. The cervix is closed. A pole with an average crown-rump length of 5.3 mm is present. There is detectable cardiac activity in the fetus in a rate of 118 beats per minute. A yolk sac was visible. Maternal ovaries appear normal with a corpus luteum cyst visualized on both ovaries. No free pelvic fluid. IMPRESSION: 1. Single living intrauterine with gestational age of 6 weeks 2 days and estimated due date of 08/21/2017 2. Closed cervix and no perigestational hemorrhage.
== END 2016-12-28 23:00 | disposition home or self-care (01) ==
LOC: US SRH 09:40
DX: Z34.91 Encounter for supervision of normal pregnancy, unspecified, first trimester (principal); Z3A.01 Less than 8 weeks gestation of pregnancy

== ENCOUNTER 2016-12-29 19:10 | Emergency (ER) | payer OTHER ==
--- NOTE | 2016-12-29 20:59 | ED CLINICAL REPORT ---
Clinical Report - Physicians/Mid Levels [facility] [address] [place] [address] 12/29/2016 19:09 Patient: MOISES CANALES Time Seen: 19:57; initial patient contact, initial documentation, patient care assumed. Arrived- By private vehicle. Historian- patient. HISTORY OF PRESENT ILLNESS Chief Complaint: COUGH and FEVER. This started about 5 days ago and is still present. The illness is described as mild. The patient has had a cough, nasal congestion, sinus pressure, fever of 99 F and a nasal discharge. No sputum production, muscle aches, chills, sore throat or sinus drainage. No ear pain. The patient has had mild difficulty breathing (using her inhaler more lately). The patient has also had wheezing. Additional history - No known contact with a sick individual. No recent travel. Similar symptoms previously: None. Recent medical care: Not recently seen/assessed. REVIEW OF SYSTEMS The patient has had a headache. Currently : 6 wks In 1st trimester. All systems otherwise negative, except as recorded above. PAST HISTORY See nurses notes. PROBLEMS: Vaginitis. Contusion. Biliary Colic. Abdominal Pain. Gallstone(s). Spotting, . Threatened . . Depression. Immunizations. LNMP - Last Normal Menstrual Period. Suicidal Ideation. --19:46 Kim Huizar. ADDITIONAL SURGERIES: no known surgeries. SOCIAL HISTORY Never smoker. Not exposed to second-hand smoke at home. No alcohol use or drug use. No recent travel. Is a local resident. FAMILY HISTORY Negative. ADDITIONAL NOTES The nursing notes have been reviewed with agreement regarding the chief complaint, HPI, ROS, PMH and patient medications and allergies. PHYSICAL EXAM Vital Signs: 12/29/2016 19:44 BP: 116/64. HR: 79. RR: 20. O2 saturation: 98%. Temp: 97.9 F. Pain level now: 8/10. Have been reviewed as normal and appear to be correct. Appearance: Alert. No acute distress. Eyes: Pupils equal, round and reactive to light. Eyes normal inspection. ENT: Ears normal. Nose normal. Pharynx normal. Uvula midline. Neck: Normal inspection. Neck supple. CVS: Normal heart rate and rhythm. Heart sounds normal. Pulses normal. Respiratory: No respiratory distress. Breath sounds normal. Abdomen: Soft and nontender. No organomegaly. Back: Normal inspection. Skin: Skin warm and dry. Normal skin color. No rash. Normal skin turgor. Extremities: Extremities exhibit normal ROM. No lower extremity edema. Neuro: Oriented X 3. No motor deficit. No sensory deficit. PROGRESS AND PROCEDURES Course of Care: 20:51 12/29/16. pt has stacy for some narcs, and #11 er visits, see report for full details. Patient and spouse counseled in person regarding the patient's stable condition and diagnosis. 20:58. Differential Diagnosis: Other possible considerations: flu, viral illness, allergies, uri, bronchitis, sinusitis, pneumonia, asthma. Above considerations are based on history and physical exam. Differential diagnosis was discussed with patient. Disposition: Discharged home in good and unchanged condition (20:59). Condition: good and stable. CLINICAL IMPRESSION Acute viral rhinitis. No airway obstruction. INSTRUCTIONS Take Tylenol (Acetaminophen) for fever, temperature greater than 101 degrees orally. Take according to label instructions. Drink plenty of fluids for the next 24 hours until better. Warnings: GENERAL WARNINGS: Return or contact your physician immediately if your condition worsens or changes unexpectedly, if not improving as expected, or if other problems arise. Specifically return if problem worsens. Prescription Medications: Albuterol HFA oral inhaler: inhale 1 to 2 puffs every four to six hours as needed for difficulty breathing. Dispense one (1) unit. No refills. Follow-up: Follow up with your doctor in about five days as needed. Call for an appointment. Summary of care provided to patient. Understanding of the discharge instructions verbalized by patient. (Electronically signed by Maryjane Galan A.R.N.P. 12/29/2016 21:16)
--- NOTE | 2016-12-29 20:59 | ED NURSING NOTES ---
Clinical Report - Nurses [facility] [address] [place] [address] 12/29/2016 19:09 Patient: MOISES CANALES TRIAGE Triage time 19:44 Dec 29 2016. Acuity: LEVEL 4. Chief Complaint: COUGH and FEVER. 19:47 12/29/16. SEPSIS SCREEN: Sepsis Screen: negative. Negative (no infection suspected/documented). KATIANA COMA SCORE: [place] Coma Scale: 15- eyes open spontaneously (4); best verbal response- oriented x 4 (5); best motor response- obeys commands (6). --19:47 Kim Huizar 19:44 12/29/16. BP: 116/64. HR: 79. RR: 20. O2 saturation: 98% on room air. Temp: 97.9 F (oral). Pain level now: 810. --19:47 Kim Huizar. Weight: 81.6 kg stated. Height/Length: 65 inches Per Patient. BMI: 30. Growth Chart Percentile: Weight: 94.4%. Height/Length: 60.1%. --19:45 Kim Huizar. Medications None. --19:46 Kim Huizar. Allergies No Known Drug Allergy. --19:46 Kim Huizar. Medication/allergy information source: the patient. --19:47 Kim Huizar. History Arrived by private vehicle. Historian: patient. Accompanied by friend. Primary physician ([facility]). Onset. (5 days). ( Patient reports she has been having cough and cold symptoms for one week. She reports she feels it is hard to breath. She is asthmatic and uses an inhaler. She also reports vomiting but believes this is due to being newly ). PAST MEDICAL HX: Immunizations: up-to-date. Last normal menstrual period- Nov 09. SOCIAL HX: Never smoker. No alcohol use or drug use. No infectious disease exposure. ABUSE ASSESSMENT: No report of abuse. FALL RISK ASSESSMENT: Fall risk assessment completed. No fall risk identified. NUTRITIONAL RISK ASSESSMENT: The nutritional risk assessment revealed no deficiencies. FUNCTIONAL ASSESSMENT: Functional assessment: no impairments noted. LEARNING NEEDS ASSESSMENT: The learning needs assessment revealed no barriers. SKIN INTEGRITY ASSESSMENT: Skin integrity risk assessment completed. No skin integrity risk identified. --19:47 Kim Huizar. PROBLEMS: Vaginitis. Contusion. Biliary Colic. Abdominal Pain. Gallstone(s). Spotting, . Threatened . . Depression. Immunizations. LNMP - Last Normal Menstrual Period. Suicidal Ideation. --19:46 Kim Huizar. ADDITIONAL SURGERIES: no known surgeries. Interventions ID band on patient. To waiting room. --19:47 Kim Huizar. PHYSICAL ASSESSMENT GENERAL / NEURO / PSYCH: Alert. Oriented X 4. Appears in no acute distress. HEENT: Pupils equal, round and reactive to light. Ears within normal limits. Runny nose. Voice within normal limits. Mucous membranes are pink. RESPIRATORY: Respirations not labored. Cough productive of scant amounts of clear sputum. CVS: Normal sinus rhythm noted. Capillary refill less than 2 seconds. SKIN: Skin is warm and dry. Normal skin turgor. --:58 Héctor Hernandez NURSING PROGRESS NOTES Patient identifiers checked. Call light placed in reach. Side rails up x 1. Bed placed in lowest position. Brakes of bed on. --:58 Héctor Hernandez DISPOSITION / DISCHARGE Departure time: 21:01. Condition at departure: improved. No learning barriers present. Discharge instructions provided and reviewed with the patient. Reviewed medication(s) side effects, precautions, dosing and course information. Prescription(s) given to the patient. Patient verbalized understanding. Written instructions provided in Malagasy. No warning instructions, treatment instructions, referrals given to the patient, diet instructions or activity restrictions. No follow up contact number given or stop smoking instructions. No work note given. The patient was discharged by the nurse practitioner. She was discharged home and accompanied by dish room worker. She left the Emergency Department ambulatory and via private vehicle. Photo Optics Technician driving. FALL RISK ASSESSMENT: Fall risk assessment completed. No fall risk identified. --21:07 Héctor Hernandez 21:06 12/29/16. BP: 116/74. HR: 76. RR: 16. O2 saturation: 98%. Temp: 98.4 F. Pain level now: 2/10. --21:07 Héctor Hernandez Locked/Released at 12/29/2016 21:07 by Héctor Hernandez
--- NOTE | 2016-12-29 20:59 | ED NURSING NOTES ---
Clinical Report - Nurses [facility] [address] [place] [address] 12/29/2016 19:09 Patient: MOISES CANALES TRIAGE Triage time 19:44 Dec 29 2016. Acuity: LEVEL 4. Chief Complaint: COUGH and FEVER. 19:47 12/29/16. SEPSIS SCREEN: Sepsis Screen: negative. Negative (no infection suspected/documented). KATIANA COMA SCORE: [place] Coma Scale: 15- eyes open spontaneously (4); best verbal response- oriented x 4 (5); best motor response- obeys commands (6). --19:47 Kim Huizar 19:44 12/29/16. BP: 116/64. HR: 79. RR: 20. O2 saturation: 98% on room air. Temp: 97.9 F (oral). Pain level now: 810. --19:47 Kim Huizar. Weight: 81.6 kg stated. Height/Length: 65 inches Per Patient. BMI: 30. Growth Chart Percentile: Weight: 94.4%. Height/Length: 60.1%. --19:45 Kim Huizar. Medications None. --19:46 Kim Huizar. Allergies No Known Drug Allergy. --19:46 Kim Huizar. Medication/allergy information source: the patient. --19:47 Kim Huizar. History Arrived by private vehicle. Historian: patient. Accompanied by friend. Primary physician ([facility]). Onset. (5 days). ( Patient reports she has been having cough and cold symptoms for one week. She reports she feels it is hard to breath. She is asthmatic and uses an inhaler. She also reports vomiting but believes this is due to being newly ). PAST MEDICAL HX: Immunizations: up-to-date. Last normal menstrual period- Nov 09. SOCIAL HX: Never smoker. No alcohol use or drug use. No infectious disease exposure. ABUSE ASSESSMENT: No report of abuse. FALL RISK ASSESSMENT: Fall risk assessment completed. No fall risk identified. NUTRITIONAL RISK ASSESSMENT: The nutritional risk assessment revealed no deficiencies. FUNCTIONAL ASSESSMENT: Functional assessment: no impairments noted. LEARNING NEEDS ASSESSMENT: The learning needs assessment revealed no barriers. SKIN INTEGRITY ASSESSMENT: Skin integrity risk assessment completed. No skin integrity risk identified. --19:47 Kim Huizar. PROBLEMS: Vaginitis. Contusion. Biliary Colic. Abdominal Pain. Gallstone(s). Spotting, . Threatened . . Depression. Immunizations. LNMP - Last Normal Menstrual Period. Suicidal Ideation. --19:46 Kim Huizar. ADDITIONAL SURGERIES: no known surgeries. Interventions ID band on patient. To waiting room. --19:47 Kim Huizar. PHYSICAL ASSESSMENT GENERAL / NEURO / PSYCH: Alert. Oriented X 4. Appears in no acute distress. HEENT: Pupils equal, round and reactive to light. Ears within normal limits. Runny nose. Voice within normal limits. Mucous membranes are pink. RESPIRATORY: Respirations not labored. Cough productive of scant amounts of clear sputum. CVS: Normal sinus rhythm noted. Capillary refill less than 2 seconds. SKIN: Skin is warm and dry. Normal skin turgor. --:58 Héctor Hernandez NURSING PROGRESS NOTES Patient identifiers checked. Call light placed in reach. Side rails up x 1. Bed placed in lowest position. Brakes of bed on. --:58 Héctor Hernandez DISPOSITION / DISCHARGE Departure time: 21:01. Condition at departure: improved. No learning barriers present. Discharge instructions provided and reviewed with the patient. Reviewed medication(s) side effects, precautions, dosing and course information. Prescription(s) given to the patient. Patient verbalized understanding. Written instructions provided in Iraqi. No warning instructions, treatment instructions, referrals given to the patient, diet instructions or activity restrictions. No follow up contact number given or stop smoking instructions. No work note given. The patient was discharged by the nurse practitioner. She was discharged home and accompanied by solution sales senior executive. She left the Emergency Department ambulatory and via private vehicle. Enforcement Manager driving. FALL RISK ASSESSMENT: Fall risk assessment completed. No fall risk identified. --21:07 Héctor Hernandez 21:06 12/29/16. BP: 116/74. HR: 76. RR: 16. O2 saturation: 98%. Temp: 98.4 F. Pain level now: 2/10. --21:07 Héctor Hernandez Locked/Released at 12/29/2016 21:07 by Héctor Hernandez
--- NOTE | 2016-12-29 21:16 | ED DISCHARGE INSTRUCTIONS ---
Patient: MOISES CANALES General Instructions [facility] VisitID: [id number] [place] [address] 21y, F Registration Date/Time: 12/29/2016 Acute viral rhinitis. No airway obstruction. INSTRUCTIONS Take Tylenol (Acetaminophen) for fever, temperature greater than 101 degrees orally. Take according to label instructions. Drink plenty of fluids for the next 24 hours until better. Warnings: GENERAL WARNINGS: Return or contact your physician immediately if your condition worsens or changes unexpectedly, if not improving as expected, or if other problems arise. Specifically return if problem worsens. Prescription Medications: Albuterol HFA oral inhaler: inhale 1 to 2 puffs every four to six hours as needed for difficulty breathing. Dispense one (1) unit. No refills. Follow-up: Follow up with your doctor in about five days as needed. Call for an appointment. Summary of care provided to patient. Understanding of the discharge instructions verbalized by patient. ADDITIONAL INFORMATION Viral Respiratory Illness [Adult] You have an Upper Respiratory Illness (URI) caused by a virus. This illness is contagious during the first few days. It is spread through the air by coughing and sneezing or by direct contact (touching the sick person and then touching your own eyes, nose or mouth). Most viral illnesses go away within 7-10 days with rest and simple home remedies. Sometimes, the illness may last for several weeks. Antibiotics will not kill a virus and are generally not prescribed for this condition. Home Care: 1) If symptoms are severe, rest at home for the first 2-3 days. When you resume activity, don't let yourself get too tired. 2) Avoid being exposed to cigarette smoke (yours or others). 3) Tylenol (acetaminophen) or ibuprofen (Advil, Motrin) will help fever, muscle aching and headache. (Persons under 18 with fever should not take aspirin since this may cause liver damage.) 4) Your appetite may be poor, so a light diet is fine. Avoid dehydration by drinking 6-8 glasses of fluids per day (water, soft drinks, juices, tea, soup). Extra fluids will help loosen secretions in the nose and lungs. 5) Rlmn-wbw-yykbzht cold medicines will not shorten the length of time youre sick, but they may be helpful for the following symptoms: cough (Robitussin DM); sore throat (Chloraseptic lozenges or spray); nasal and sinus congestion (Actifed, Sudafed, Chlortrimeton). Follow Up with your doctor or as advised if you dont improve over the next week. Get Prompt Medical Attention if any of the following occur: -- Cough with lots of colored sputum (mucus) or blood in your sputum -- Chest pain, shortness of breath, wheezing or have trouble breathing -- Severe headache; face, neck or ear pain -- Fever over 100.4 F (38.0 C) for more than three days -- You cant swallow due to throat pain Fever Control (Adult) A fever is a natural reaction of the body to an illness. In most cases, the temperature itself is not harmful. It actually helps the body fight infections. A fever does not need to be treated unless you feel very uncomfortable. Home Care If you feel warm, check your temperature. If you feel very uncomfortable and your temperature is at or higher than 100.4F (38C) oral, you may take acetaminophen (Tylenol) every 4 to 6 hours. If you cant take or keep down oral medicine, ask your pharmacist for Tylenol suppositories, which you can get without a prescription. If the fever does not respond to acetaminophen within 1 hour, take ibuprofen (Advil or Motrin). If this works, keep taking the ibuprofen every 6 to 8 hours. Note: If you have chronic liver or kidney disease or ever had a stomach ulcer or GI bleeding, talk with your doctor before using these medications. If either medication alone does not keep the fever down, you may alternate the two medicines every 3 to 4 hours, only if your healthcare provider has instructed you to do so. For example, take Motrin then wait 3 hours, take Tylenol then wait 3 hours, take Motrin, and so on. Follow your healthcare providers instructions exactly. Clothing: Keep clothing light because excess body heat is lost through the skin. The fever will go up if you wear extra layers or wrap in blankets. Fluids: Fever causes the body to lose water through evaporation. Drink plenty of fluids such as water, juice, clear sodas, nuha susy, or lemonade. Do not use aspirin in anyone under 18 years of age who is ill with a fever. It can cause severe liver damage. Follow Up with your doctor or as advised by our staff if you do not get better after 48 hours. Get Prompt Medical Attention if any of the following occur: Fever does not get better after taking fever medication Fast or difficult breathing Earache, sinus pain, stiff or painful neck, headache, repeated diarrhea or vomiting You feel unusually irritable, drowsy, or confused A rash appears You feel weak or dizzy, or that you might faint Albuterol Sulfate Pressurized inhalation, suspension What is this medicine? ALBUTEROL (al BYOO ter ole) is a bronchodilator. It helps open up the airways in your lungs to make it easier to breathe. This medicine is used to treat and to prevent bronchospasm. How should I use this medicine? This medicine is for inhalation through the mouth. Follow the directions on your prescription label. Take your medicine at regular intervals. Do not use more often than directed. Make sure that you are using your inhaler correctly. Ask you doctor or health care provider if you have any questions. Talk to your aeronautical test engineer regarding the use of this medicine in children. Special care may be needed. What side effects may I notice from receiving this medicine? Side effects that you should report to your doctor or health hiv/aids care nurse as soon as possible: allergic reactions like skin rash, itching or hives, swelling of the face, lips, or tongue breathing problems chest pain feeling faint or lightheaded, falls high blood pressure irregular heartbeat fever muscle cramps or weakness pain, tingling, numbness in the hands or feet vomiting Side effects that usually do not require medical attention (report to your doctor or health hiv/aids care nurse if they continue or are bothersome): cough difficulty sleeping headache nervousness or trembling stomach upset stuffy or runny nose throat irritation unusual taste What may interact with this medicine? anti-infectives like chloroquine and pentamidine caffeine cisapride diuretics medicines for colds medicines for depression or for emotional or psychotic conditions medicines for weight loss including some herbal products methadone some antibiotics like clarithromycin, erythromycin, levofloxacin, and linezolid some heart medicines steroid hormones like dexamethasone, cortisone, hydrocortisone theophylline thyroid hormones What if I miss a dose? If you miss a dose, use it as soon as you can. If it is almost time for your next dose, use only that dose. Do not use double or extra doses. Where should I keep my medicine? Keep out of the reach of children. Store at room temperature between 15 and 30 degrees C (59 and 86 degrees F). The contents are under pressure and may burst when exposed to heat or flame. Do not freeze. This medicine does not work as well if it is too cold. Throw away any unused medicine after the expiration date. Inhalers need to be thrown away after the labeled number of puffs have been used or by the expiration date; whichever comes first. Ventolin HFA should be thrown away 12 months after removing from foil pouch. Check the instructions that come with your medicine. What should I tell my health care provider before I take this medicine? They need to know if you have any of the following conditions: diabetes heart disease or irregular heartbeat high blood pressure pheochromocytoma seizures thyroid disease an unusual or allergic reaction to albuterol, levalbuterol, sulfites, other medicines, foods, dyes, or preservatives or trying to get breast-feeding What should I watch for while using this medicine? Tell your doctor or health hiv/aids care nurse if your symptoms do not improve. Do not use extra albuterol. If your asthma or bronchitis gets worse while you are using this medicine, call your doctor right away. If your mouth gets dry try chewing sugarless gum or sucking hard candy. Drink water as directed. You have been given the following additional information: Uri, Viral, No Abx (Adult) Fever Control (Adult) Albuterol Sulfate Pressurized inhalation, suspension (Electronically signed by Maryjane Galan A.R.N.P. 12/29/2016 21:16)
--- NOTE | 2016-12-29 21:16 | ED MAR SUMMARY ---
..... Medication Administration Record [facility] [address] [place], [place] [id number] Patient: MOISES CANALES Visit ID: [id number] 21y, F Weight: 81.6 kg Height/Length: 65 in BMI: 30 ALLERGIES: No Known Drug Allergy
--- NOTE | 2016-12-29 21:16 | ED MAR SUMMARY ---
..... Medication Administration Record [facility] [address] [place], [place] [id number] Patient: MOISES CANALES Visit ID: [id number] 21y, F Weight: 81.6 kg Height/Length: 65 in BMI: 30 ALLERGIES: No Known Drug Allergy
--- NOTE | 2016-12-29 21:17 | ED MED RECONCILIATION SUMMARY ---
Patient: MOISES CANALES Medication Reconciliation Report [facility] VisitID: [id number] [place] [address] 21y, F Registration Date/Time: 12/29/2016 Weight: 81.6 kg Height/Length: 65 in. BMI: 30.0 ALLERGIES: No Known Drug Allergy The patient's Home Medications are listed below: NONE. The source(s) of the original Home Medication information: patient The following Medications were given to the patient in the Emergency Department: None. The following Medications were prescribed to the patient: Albuterol HFA oral inhaler: inhale 1 to 2 puffs every four to six hours as needed for difficulty breathing. Dispense one (1) unit. No refills. -- Maryjane Galan A.R.N.P.
--- NOTE | 2016-12-29 21:17 | ED MED RECONCILIATION SUMMARY ---
Patient: MOISES CANALES Medication Reconciliation Report [facility] VisitID: [id number] [place] [address] 21y, F Registration Date/Time: 12/29/2016 Weight: 81.6 kg Height/Length: 65 in. BMI: 30.0 ALLERGIES: No Known Drug Allergy The patient's Home Medications are listed below: NONE. The source(s) of the original Home Medication information: patient The following Medications were given to the patient in the Emergency Department: None. The following Medications were prescribed to the patient: Albuterol HFA oral inhaler: inhale 1 to 2 puffs every four to six hours as needed for difficulty breathing. Dispense one (1) unit. No refills. -- Maryjane Galan A.R.N.P.
== END 2016-12-29 21:01 | disposition home or self-care (01) ==
LOC: ED SRH 19:10
DX: J00 Acute nasopharyngitis [common cold] (principal); B97.89 Other viral agents as the cause of diseases classified elsewhere

== ENCOUNTER 2017-01-08 20:43 | Emergency (ER) | payer OTHER ==
--- NOTE | 2017-01-08 23:00 | ED ORDER SUMMARY ---
..... Patient: MOISES CANALES OrderSheet [facility] VisitID: [id number] [place] [address] 21y, F Registration Date/Time: 01/08/2017 ORDER SHEET Weight: 81.6 kg (stated) Allergies: No Known Drug Allergy GENERAL ORDERS: CBC w Diff Urgent (21:01/08/2017 EKoroleva P.A.-C) (Ack 21:26 LMuller) (21:57 CBradburn R.N.) Serum Quantitative Urgent (:01/08/2017 EKoroleva P.A.-C) (Ack 21:26 LMuller) (21:37 RCollier R.N.) UA-Culture if indicated Urgent (:01/08/2017 EKoroleva P.A.-C) (Ack 21:26 LMuller) (21:37 RCollier R.N.) CMP Urgent (21:01/08/2017 EKoroleva P.A.-C) (Ack 21:26 LMuller) (21:57 CBradburn R.N.) Lipase Urgent (21:01/08/2017 EKoroleva P.A.-C) (Ack 21:26 LMuller) (21:57 CBradburn R.N.) UA-Culture if indicated Urgent (22:01/08/2017 EKoroleva P.A.-C) (Ack 22:32 LMuller) (22:42 RCollier R.N.) MEDICATION ORDERS: IV FLUIDS: IV NS : initial bolus 1000 mL (1000 mL/hr), then 1000 mL/hr for X1 (NOW); Edwin (21:01/08/2017 EKoroleva P.A.-C) (Ack 21:37 RCollier R.N.) (21:56 CBradburn R.N.) Reglan IV 10 mg (NOW) (21:01/08/2017 EKoroleva P.A.-C) (Ack 21:37 RCollier R.N.) (21:57 CBradburn R.N.) ORDER SHEET NOTES: [Electronically signed by Yumiko Garcia P.A.-C (13:25 01/09/2017)] [Electronically signed by Jazzmine De Jesus R.N. (:01/12/2017)] [Electronically locked/signed by Jazzmine De Jesus R.N. (:01/12/2017)]
--- NOTE | 2017-01-08 23:00 | ED CLINICAL REPORT ---
Clinical Report - Physicians/Mid Levels [facility] [address] [place] [address] 01/08/2017 20:44 Patient: MOISES CANALES Time Seen: 21:26 Jan 08 2017. Arrived- By private vehicle. Historian- patient. HISTORY OF PRESENT ILLNESS Chief Complaint: ABDOMINAL PAIN. This started just prior to arrival and is still present. The patient has had nausea, vomiting and diarrhea. (, LMP nov 09 about 8.5 weeks iup Reports she has had vomiting abdominal pain over the last 24 hours. SHe reports some chills. + Diarrhea. Denies any antibiotics. Denies any fevers. Denies any recent medication changes. Denies any recent travel.). REVIEW OF SYSTEMS No constipation, black stools, difficulty with urination, pain with urination or urinary frequency. Currently . All systems otherwise negative, except as recorded above. SOCIAL HISTORY Never smoker. No alcohol use or drug use. ADDITIONAL NOTES The nursing notes have been reviewed. PHYSICAL EXAM Vital Signs: 01/08/2017 20:54 BP: 124/66. HR: 93. RR: 15. O2 saturation: 98%. Temp: 97.9 F. Pain level now: 9/10. Appearance: Alert. Eyes: Eyes normal inspection. ENT: Ears normal. Nose normal. Pharynx normal. No pharyngeal erythema or tonsillar exudate. Neck: Normal inspection. CVS: Normal heart rate and rhythm. Heart sounds normal. Pulses normal. Respiratory: No respiratory distress. Breath sounds normal. Chest nontender. No decreased air movement. Abdomen: Soft and nontender. Gravid uterus palpable to just above pubic symphysis. Back: Normal inspection. No CVA tenderness. Skin: Skin warm. Neuro: Oriented X 3. LABS, X-RAYS, AND EKG Laboratory Tests: UA-Culture if indicated: (OBEY: 01/08/2017 22:39) ( MsgRcvd 01/08/2017 22:54) Final results Test Result Flag Units (Reference) URINE COLOR YELLOW URINE APPEARANCE CLEAR URINE GLUCOSE NEGATIVE (NEGATIVE) URINE BILIRUBIN NEGATIVE (NEGATIVE) URINE KETONE 1+ (NEGATIVE) URINE SPECIFIC GRAVITY >= 1.030 (1.010-1.030) URINE PH 6.0 (5.0-8.0) URINE PROTEIN NEGATIVE (NEGATIVE) URINE UROBILINOGEN 0.2 EU/dL (0.2-1.0) URINE NITRITE NEGATIVE (NEGATIVE) URINE BLOOD NEGATIVE (NEGATIVE) URINE LEUK ESTERASE NEGATIVE (NEGATIVE) URINE RBC 1-3 rbc/hpf (0-1) URINE WBC 0-1 wbc/hpf (0-1) URINE EPITHELIAL CELLS 0-1 EPI/hpf (0-5) URINE BACTERIA NONE SEEN (NONE SEEN) URINE COMMENT CULT NOT INDICATED 3+ MUCOUSURINE CULTURES ARE SET-UP BASED ON THE FOLLOWING CRITERIA:POSITIVE NITRITEPOSITIVE LEUKOCYTE ESTERASEGREATER THAN 10 WHITE BLOOD CELLSMODERATE (2+) OR GREATER BACTERIA UA-Culture if indicated: (OBEY: 01/08/2017 20:53) ( [facility] 01/08/2017 21:39) Final results Test Result Flag Units (Reference) URINE COLOR YELLOW URINE APPEARANCE CLEAR URINE GLUCOSE NEGATIVE (NEGATIVE) URINE BILIRUBIN NEGATIVE (NEGATIVE) URINE KETONE 2+ (NEGATIVE) URINE SPECIFIC GRAVITY >= 1.030 (1.010-1.030) URINE PH 6.0 (5.0-8.0) URINE PROTEIN NEGATIVE (NEGATIVE) URINE UROBILINOGEN 0.2 EU/dL (0.2-1.0) URINE NITRITE NEGATIVE (NEGATIVE) URINE BLOOD NEGATIVE (NEGATIVE) URINE LEUK ESTERASE NEGATIVE (NEGATIVE) URINE RBC 0-1 rbc/hpf (0-1) URINE WBC 3-5 wbc/hpf (0-1) URINE EPITHELIAL CELLS 10-15 EPI/hpf (0-5) URINE BACTERIA FEW (1+) (NONE SEEN) URINE COMMENT CULT NOT INDICATED 2+ MUCUSURINE CULTURES ARE SET-UP BASED ON THE FOLLOWING CRITERIA:POSITIVE NITRITEPOSITIVE LEUKOCYTE ESTERASEGREATER THAN 10 WHITE BLOOD CELLSMODERATE (2+) OR GREATER BACTERIA CBC w Diff: (OBEY: 01/08/2017 21:49) ( [facility] 01/08/2017 21:57) Final results Test Result Flag Units (Reference) WHITE BLOOD COUNT 9.6 K/uL (4.5-11.5) RED BLOOD COUNT 4.44 M/uL (4.00-5.20) HEMOGLOBIN 11.9 L gm/dL (12.0-16.0) HEMATOCRIT 35.6 L % (36.0-46.0) MEAN CELL VOLUME 80 fL (80-100) MEAN CORPUSCULAR HGB 27 pg (26-34) MEAN CORPUSCULAR HGB CONC 33 g/dL (31-37) RED CELL DISTRIBUTION WIDTH 14.5 % (11.6-14.8) PLATELET COUNT 285 K/uL (150-400) NEUTROPHIL % 72.5 % (50-75) LYMPH % 21.6 L % (25-40) MONO % 5.0 % (3-14) EOSINOPHIL % 0.7 % (0-4) BASOPHIL % 0.2 % (0-2) CMP: (OBEY: 01/08/2017 21:49) ( MsgRcvd 01/08/2017 22:34) Final results Test Result Flag Units (Reference) GLUCOSE 93 mg/dL (70-110) BUN 6 L mg/dL (7-18) CREATININE 0.5 L mg/dL (0.6-1.3) Estimated GFR >60 mL/min Estimated GFR- >60 mL/min Note: Persistent reduction over 3 months in eGFR<60 mL/min/1.73 m2 defines CKD. Patients with eGFR values>=60 mL/min/1.73 m2 may also have CKD if evidence ofpersistent proteinuria. Additional information may be foundat [email or web address]. SODIUM 141 mmol/L (136-145) POTASSIUM 3.7 mmol/L (3.5-5.1) CHLORIDE 105 mmol/L (98-107) CARBON DIOXIDE 22 mmol/L (21-32) CALCIUM 8.9 mg/dL (8.5-10.1) TOTAL PROTEIN 6.9 g/dL (6.4-8.2) ALBUMIN 3.2 L g/dL (3.3-5.0) BILIRUBIN, TOTAL 0.4 mg/dL (0.0-1.0) ALKALINE PHOSPHATASE 80 U/L (46-116) AST (SGOT) 15 U/L (15-37) ALT (SGPT) 21 U/L (12-78) LIPASE 92 U/L (73-393) BETA HCG, QUANTITATIVE 43208 mIU/mL REFERENCE RANGE:Adult Males: <2 mIU/mLNon- Females: <6 mIU/mL Females:Approximate Approximate hCGGestational Age Range (mIU/mL) 0-1 week 0-501-2 weeks 40-3002-3 weeks 100-63204-6 weeks 500-28646-0 months 5,000-200,0002-3 months 10,000-100,0002nd trimester 3,000-50,0003rd trimester 1,000-50,000 . PROGRESS AND PROCEDURES Course of Care: In the ER patient received 2 L of fluid, no further signs of acute surgical abdomen. Abdomen is soft. Signs of uterus. Patient has no lower abdominal pain. At the time she has not had any abdominal pain in the emergency department she has had no vaginal bleeding or loss of fluid. able to follow up outpatient. Discussed with patient use of narcotics, she uses oxycodone for her knee. Patient understands the risks. She reports she will discuss this with her prescriber. Patient is stable. Disposition: Discharged. CLINICAL IMPRESSION Early, first trimester intrauterine . INSTRUCTIONS Drink plenty of fluids. Prescription Medications: Reglan 10 mg tablets: take 1 orally every 8 hours for 3 days as needed for nausea or vomiting. Dispense ten (10). No refills. Substitution is permissible. vitamins: Take 1 orally every day. Dispense thirty (30). No refils. Substitution is permissible. Follow-up: Follow up with your doctor in seven days. (Electronically signed by Yumiko Garcia P.A.-C 01/09/2017 13:25)
--- NOTE | 2017-01-08 23:00 | ED NURSING NOTES ---
Clinical Report - Nurses [facility] [address] [place] [address] 01/08/2017 20:44 Patient: MOISES CANALES TRIAGE Triage time 20:55. Acuity: LEVEL 3. Chief Complaint: ABDOMINAL PAIN, NAUSEA, VOMITING and DIARRHEA. --20:59 Jazzmine De Jesus R.N. 20:54 01/08/17. BP: 124/66. HR: 93. RR: 15 (regular and unlabored). O2 saturation: 98% on room air. Temp: 97.9 F (oral). Pain level now: 06/03. --20:59 Jazzmine De Jesus R.N. Weight: 81.6 kg stated. Height/Length: 65 inches Per Patient. BMI: 30. Growth Chart Percentile: Weight: 94.4%. Height/Length: 60.1%. --20:57 Jazzmine De Jesus R.N. Medications Sertraline HCl Oral 120mg, as needed, anxiety. --20:56 Jazzmine De Jesus R.N. Allergies No Known Drug Allergy. --20:56 Jazzmine De Jesus R.N. History Arrived by private vehicle. Primary physician (Radha). This started today. Onset. (at about 1400). She has had vomiting (has vomited 4 times today). PAST MEDICAL HX: Immunizations: up-to-date. Last normal menstrual period- Nov 09 2016. Currently : 7 weeks. SOCIAL HX: Never smoker. No alcohol use or drug use. NUTRITIONAL RISK ASSESSMENT: The nutritional risk assessment revealed no deficiencies. FUNCTIONAL ASSESSMENT: Functional assessment: no impairments noted. --20:59 Jazzmine De Jesus R.N. PROBLEMS: Biliary Colic. . Depression. Suicidal Ideation. --20:57 Jazzmine De Jesus R.N. ADDITIONAL SURGERIES: no known surgeries. Interventions ID band on patient. --20:59 Jazzmine De Jesus R.N. PHYSICAL ASSESSMENT Ambulatory to room. Patient gowned. GENERAL / NEURO / PSYCH: Alert. Oriented X 4. Appears in no acute distress. RESPIRATORY: Respirations not labored. CVS: Capillary refill less than 2 seconds. SKIN: Skin is warm and dry. --20:59 Jazzmine De Jesus R.N. NURSING PROGRESS NOTES Head of bed elevated. Two patient identifiers checked. Call light placed in reach. Side rails up x 1. Bed placed in lowest position. Brakes of bed on. --21:00 Jazzmine De Jesus R.N. Patient ready for evaluation- chart flagged. --21:00 Jazzmine De Jesus R.N. Patient ID band checked for patient name and birthdate: patient confirmed. Instructions provided to collect clean catch urine and patient verbalized understanding. Clean catch urine collected with return of yellow-colored clear urine; sample sent to lab. Specimen labeled in the presence of the patient. --21:00 Jazzmine De Jesus R.N. 21:48 01/08/2017 Site #1 started via IV in the right antecubital space with an 20g angiocath, with aseptic technique and good blood return; one attempt. Blood drawn: rainbow set. Labeled in the presence of the patient and sent to the lab. --21:55 Samira James R.N. 21:49 01/08/2017 Started bag #1 1000 mL IV Fluids IV NS (Saline); at 1000 mL/hr via site #1 via IV pump. Allergies verified and confirmed 5 rights. IV patency established. IV site checked: no pain, redness, or swelling. IV flushed thoroughly pre- and post-medication administration. --21:56 Samira James R.N. 21:51 01/08/2017 Reglan (Metoclopramide HCl) IVP 10 mg given over 2 minute(s) via site #1. Allergies verified and confirmed 5 rights. IV patency established. IV site checked: no pain, redness, or swelling. IV flushed thoroughly pre- and post-medication administration. IVP given by RN. --21:57 Samira James R.N. 8 fr in/out catheterization. During procedure hand hygiene observed and sterile equipment and aseptic technique used. Return of less than 50 mL yellow-colored clear urine. She tolerated procedure fair. Patient ID band checked: patient confirmed. Catheterized urine collected with return of yellow-colored clear urine; sample sent to lab. Specimen labeled in the presence of the patient. --22:42 Jazzmine De Jesus R.N. 22:53 01/08/2017 Started bag #1 1000 mL IV Fluids IV NS (Saline); bolus of 1000 mL via site #1 via IV pump. Allergies verified and confirmed 5 rights. IV patency established. IV site checked: no pain, redness, or swelling. IV flushed thoroughly pre- and post-medication administration. --22:53 Braydon Grace R.N. 22:53 01/08/2017 IV Fluids IV NS Discontinued: bag #1 infused. Total amount infused: 990 mL. IV patency established. IV site checked: no pain, redness, or swelling. IV flushed thoroughly. --22:53 Braydon Grace R.N. 22:54 01/08/17. BP: 96/43. HR: 73. O2 saturation: 99% on room air. --22:54 Braydon Grace R.N. 21:30 01/08/17. BP: 108/52. HR: 77. RR: 15. O2 saturation: 100% on room air. --23:37 Jazzmine De Jesus R.N. DISPOSITION / DISCHARGE 23:37 01/08/17. BP: 95/40. HR: 80. RR: 15. O2 saturation: 100% on room air. Temp: deferred. Blandon-Webster pain scale: 2/10. --23:37 Jazzmine De Jesus R.N. 23:30 01/08/2017 Site #1 removed upon discharge. Catheter intact. Manual pressure and bandage applied. --23:38 Jazzmine De Jesus R.N. 23:30 01/08/2017 IV Fluids IV NS Discontinued: bag #2 STOPPED. Total amount infused: 500 mL. IV patency established. IV site checked: no pain, redness, or swelling. IV flushed thoroughly. --23:38 Jazzmine De Jesus R.N. Condition at departure: improved and stable. No learning barriers present. Discharge instructions provided and reviewed with the patient. Reviewed medication(s) side effects, precautions, dosing and course information. Prescription(s) given to the patient. Patient verbalized understanding. Written instructions provided in Ethiopian. The patient was discharged home and accompanied by mine car dispatcher. She left the Emergency Department ambulatory and via private vehicle. Stove Polisher driving. --23:39 Jazzmine De Jesus R.N. Locked/Released at 01/12/2017 3:18 by Jazzmine De Jesus R.N.
--- NOTE | 2017-01-08 23:00 | ED NURSING NOTES ---
Clinical Report - Nurses [facility] [address] [place] [address] 01/08/2017 20:44 Patient: MOISES CANALES TRIAGE Triage time 20:55. Acuity: LEVEL 3. Chief Complaint: ABDOMINAL PAIN, NAUSEA, VOMITING and DIARRHEA. --20:59 Jazzmine De Jesus R.N. 20:54 01/08/17. BP: 124/66. HR: 93. RR: 15 (regular and unlabored). O2 saturation: 98% on room air. Temp: 97.9 F (oral). Pain level now: 06/03. --20:59 Jazzmine De Jesus R.N. Weight: 81.6 kg stated. Height/Length: 65 inches Per Patient. BMI: 30. Growth Chart Percentile: Weight: 94.4%. Height/Length: 60.1%. --20:57 Jazzmine De Jesus R.N. Medications Sertraline HCl Oral 120mg, as needed, anxiety. --20:56 Jazzmine De Jesus R.N. Allergies No Known Drug Allergy. --20:56 Jazzmine De Jesus R.N. History Arrived by private vehicle. Primary physician (Radha). This started today. Onset. (at about 1400). She has had vomiting (has vomited 4 times today). PAST MEDICAL HX: Immunizations: up-to-date. Last normal menstrual period- Nov 09 2016. Currently : 7 weeks. SOCIAL HX: Never smoker. No alcohol use or drug use. NUTRITIONAL RISK ASSESSMENT: The nutritional risk assessment revealed no deficiencies. FUNCTIONAL ASSESSMENT: Functional assessment: no impairments noted. --20:59 Jazzmine De Jesus R.N. PROBLEMS: Biliary Colic. . Depression. Suicidal Ideation. --20:57 Jazzmine De Jesus R.N. ADDITIONAL SURGERIES: no known surgeries. Interventions ID band on patient. --20:59 Jazzmine De Jesus R.N. PHYSICAL ASSESSMENT Ambulatory to room. Patient gowned. GENERAL / NEURO / PSYCH: Alert. Oriented X 4. Appears in no acute distress. RESPIRATORY: Respirations not labored. CVS: Capillary refill less than 2 seconds. SKIN: Skin is warm and dry. --20:59 Jazzmine De Jesus R.N. NURSING PROGRESS NOTES Head of bed elevated. Two patient identifiers checked. Call light placed in reach. Side rails up x 1. Bed placed in lowest position. Brakes of bed on. --21:00 Jazzmine De Jesus R.N. Patient ready for evaluation- chart flagged. --21:00 Jazzmine De Jesus R.N. Patient ID band checked for patient name and birthdate: patient confirmed. Instructions provided to collect clean catch urine and patient verbalized understanding. Clean catch urine collected with return of yellow-colored clear urine; sample sent to lab. Specimen labeled in the presence of the patient. --21:00 Jazzmine De Jesus R.N. 21:48 01/08/2017 Site #1 started via IV in the right antecubital space with an 20g angiocath, with aseptic technique and good blood return; one attempt. Blood drawn: rainbow set. Labeled in the presence of the patient and sent to the lab. --21:55 Samira James R.N. 21:49 01/08/2017 Started bag #1 1000 mL IV Fluids IV NS (Saline); at 1000 mL/hr via site #1 via IV pump. Allergies verified and confirmed 5 rights. IV patency established. IV site checked: no pain, redness, or swelling. IV flushed thoroughly pre- and post-medication administration. --21:56 Samira James R.N. 21:51 01/08/2017 Reglan (Metoclopramide HCl) IVP 10 mg given over 2 minute(s) via site #1. Allergies verified and confirmed 5 rights. IV patency established. IV site checked: no pain, redness, or swelling. IV flushed thoroughly pre- and post-medication administration. IVP given by RN. --21:57 Samira James R.N. 8 fr in/out catheterization. During procedure hand hygiene observed and sterile equipment and aseptic technique used. Return of less than 50 mL yellow-colored clear urine. She tolerated procedure fair. Patient ID band checked: patient confirmed. Catheterized urine collected with return of yellow-colored clear urine; sample sent to lab. Specimen labeled in the presence of the patient. --22:42 Jazzmine De Jesus R.N. 22:53 01/08/2017 Started bag #1 1000 mL IV Fluids IV NS (Saline); bolus of 1000 mL via site #1 via IV pump. Allergies verified and confirmed 5 rights. IV patency established. IV site checked: no pain, redness, or swelling. IV flushed thoroughly pre- and post-medication administration. --22:53 Braydon Grace R.N. 22:53 01/08/2017 IV Fluids IV NS Discontinued: bag #1 infused. Total amount infused: 990 mL. IV patency established. IV site checked: no pain, redness, or swelling. IV flushed thoroughly. --22:53 Braydon Grace R.N. 22:54 01/08/17. BP: 96/43. HR: 73. O2 saturation: 99% on room air. --22:54 Braydon Grace R.N. 21:30 01/08/17. BP: 108/52. HR: 77. RR: 15. O2 saturation: 100% on room air. --23:37 Jazzmine De Jesus R.N. DISPOSITION / DISCHARGE 23:37 01/08/17. BP: 95/40. HR: 80. RR: 15. O2 saturation: 100% on room air. Temp: deferred. Blandon-Webster pain scale: 2/10. --23:37 Jazzmine De Jesus R.N. 23:30 01/08/2017 Site #1 removed upon discharge. Catheter intact. Manual pressure and bandage applied. --23:38 Jazzmine De Jesus R.N. 23:30 01/08/2017 IV Fluids IV NS Discontinued: bag #2 STOPPED. Total amount infused: 500 mL. IV patency established. IV site checked: no pain, redness, or swelling. IV flushed thoroughly. --23:38 Jazzmine De Jesus R.N. Condition at departure: improved and stable. No learning barriers present. Discharge instructions provided and reviewed with the patient. Reviewed medication(s) side effects, precautions, dosing and course information. Prescription(s) given to the patient. Patient verbalized understanding. Written instructions provided in [place]. The patient was discharged home and accompanied by petroleum refinery worker. She left the Emergency Department ambulatory and via private vehicle. Orthopaedic Surgeon driving. --23:39 Jazzmine De Jesus R.N. Locked/Released at 01/12/2017 3:18 by Jazzmine De Jesus R.N.
--- NOTE | 2017-01-08 23:00 | ED CLINICAL REPORT ---
Clinical Report - Physicians/Mid Levels [facility] [address] [place] [address] 01/08/2017 20:44 Patient: MOISES CANALES Time Seen: 21:26 Jan 08 2017. Arrived- By private vehicle. Historian- patient. HISTORY OF PRESENT ILLNESS Chief Complaint: ABDOMINAL PAIN. This started just prior to arrival and is still present. The patient has had nausea, vomiting and diarrhea. (, LMP nov 09 about 8.5 weeks iup Reports she has had vomiting abdominal pain over the last 24 hours. SHe reports some chills. + Diarrhea. Denies any antibiotics. Denies any fevers. Denies any recent medication changes. Denies any recent travel.). REVIEW OF SYSTEMS No constipation, black stools, difficulty with urination, pain with urination or urinary frequency. Currently . All systems otherwise negative, except as recorded above. SOCIAL HISTORY Never smoker. No alcohol use or drug use. ADDITIONAL NOTES The nursing notes have been reviewed. PHYSICAL EXAM Vital Signs: 01/08/2017 20:54 BP: 124/66. HR: 93. RR: 15. O2 saturation: 98%. Temp: 97.9 F. Pain level now: 9/10. Appearance: Alert. Eyes: Eyes normal inspection. ENT: Ears normal. Nose normal. Pharynx normal. No pharyngeal erythema or tonsillar exudate. Neck: Normal inspection. CVS: Normal heart rate and rhythm. Heart sounds normal. Pulses normal. Respiratory: No respiratory distress. Breath sounds normal. Chest nontender. No decreased air movement. Abdomen: Soft and nontender. Gravid uterus palpable to just above pubic symphysis. Back: Normal inspection. No CVA tenderness. Skin: Skin warm. Neuro: Oriented X 3. LABS, X-RAYS, AND EKG Laboratory Tests: UA-Culture if indicated: (OBEY: 01/08/2017 22:39) ( MsgRcvd 01/08/2017 22:54) Final results Test Result Flag Units (Reference) URINE COLOR YELLOW URINE APPEARANCE CLEAR URINE GLUCOSE NEGATIVE (NEGATIVE) URINE BILIRUBIN NEGATIVE (NEGATIVE) URINE KETONE 1+ (NEGATIVE) URINE SPECIFIC GRAVITY >= 1.030 (1.010-1.030) URINE PH 6.0 (5.0-8.0) URINE PROTEIN NEGATIVE (NEGATIVE) URINE UROBILINOGEN 0.2 EU/dL (0.2-1.0) URINE NITRITE NEGATIVE (NEGATIVE) URINE BLOOD NEGATIVE (NEGATIVE) URINE LEUK ESTERASE NEGATIVE (NEGATIVE) URINE RBC 1-3 rbc/hpf (0-1) URINE WBC 0-1 wbc/hpf (0-1) URINE EPITHELIAL CELLS 0-1 EPI/hpf (0-5) URINE BACTERIA NONE SEEN (NONE SEEN) URINE COMMENT CULT NOT INDICATED 3+ MUCOUSURINE CULTURES ARE SET-UP BASED ON THE FOLLOWING CRITERIA:POSITIVE NITRITEPOSITIVE LEUKOCYTE ESTERASEGREATER THAN 10 WHITE BLOOD CELLSMODERATE (2+) OR GREATER BACTERIA UA-Culture if indicated: (OBEY: 01/08/2017 20:53) ( [facility] 01/08/2017 21:39) Final results Test Result Flag Units (Reference) URINE COLOR YELLOW URINE APPEARANCE CLEAR URINE GLUCOSE NEGATIVE (NEGATIVE) URINE BILIRUBIN NEGATIVE (NEGATIVE) URINE KETONE 2+ (NEGATIVE) URINE SPECIFIC GRAVITY >= 1.030 (1.010-1.030) URINE PH 6.0 (5.0-8.0) URINE PROTEIN NEGATIVE (NEGATIVE) URINE UROBILINOGEN 0.2 EU/dL (0.2-1.0) URINE NITRITE NEGATIVE (NEGATIVE) URINE BLOOD NEGATIVE (NEGATIVE) URINE LEUK ESTERASE NEGATIVE (NEGATIVE) URINE RBC 0-1 rbc/hpf (0-1) URINE WBC 3-5 wbc/hpf (0-1) URINE EPITHELIAL CELLS 10-15 EPI/hpf (0-5) URINE BACTERIA FEW (1+) (NONE SEEN) URINE COMMENT CULT NOT INDICATED 2+ MUCUSURINE CULTURES ARE SET-UP BASED ON THE FOLLOWING CRITERIA:POSITIVE NITRITEPOSITIVE LEUKOCYTE ESTERASEGREATER THAN 10 WHITE BLOOD CELLSMODERATE (2+) OR GREATER BACTERIA CBC w Diff: (OBEY: 01/08/2017 21:49) ( [facility] 01/08/2017 21:57) Final results Test Result Flag Units (Reference) WHITE BLOOD COUNT 9.6 K/uL (4.5-11.5) RED BLOOD COUNT 4.44 M/uL (4.00-5.20) HEMOGLOBIN 11.9 L gm/dL (12.0-16.0) HEMATOCRIT 35.6 L % (36.0-46.0) MEAN CELL VOLUME 80 fL (80-100) MEAN CORPUSCULAR HGB 27 pg (26-34) MEAN CORPUSCULAR HGB CONC 33 g/dL (31-37) RED CELL DISTRIBUTION WIDTH 14.5 % (11.6-14.8) PLATELET COUNT 285 K/uL (150-400) NEUTROPHIL % 72.5 % (50-75) LYMPH % 21.6 L % (25-40) MONO % 5.0 % (3-14) EOSINOPHIL % 0.7 % (0-4) BASOPHIL % 0.2 % (0-2) CMP: (OBEY: 01/08/2017 21:49) ( MsgRcvd 01/08/2017 22:34) Final results Test Result Flag Units (Reference) GLUCOSE 93 mg/dL (70-110) BUN 6 L mg/dL (7-18) CREATININE 0.5 L mg/dL (0.6-1.3) Estimated GFR >60 mL/min Estimated GFR- >60 mL/min Note: Persistent reduction over 3 months in eGFR<60 mL/min/1.73 m2 defines CKD. Patients with eGFR values>=60 mL/min/1.73 m2 may also have CKD if evidence ofpersistent proteinuria. Additional information may be foundat [email or web address]. SODIUM 141 mmol/L (136-145) POTASSIUM 3.7 mmol/L (3.5-5.1) CHLORIDE 105 mmol/L (98-107) CARBON DIOXIDE 22 mmol/L (21-32) CALCIUM 8.9 mg/dL (8.5-10.1) TOTAL PROTEIN 6.9 g/dL (6.4-8.2) ALBUMIN 3.2 L g/dL (3.3-5.0) BILIRUBIN, TOTAL 0.4 mg/dL (0.0-1.0) ALKALINE PHOSPHATASE 80 U/L (46-116) AST (SGOT) 15 U/L (15-37) ALT (SGPT) 21 U/L (12-78) LIPASE 92 U/L (73-393) BETA HCG, QUANTITATIVE 33763 mIU/mL REFERENCE RANGE:Adult Males: <2 mIU/mLNon- Females: <6 mIU/mL Females:Approximate Approximate hCGGestational Age Range (mIU/mL) 0-1 week 0-501-2 weeks 40-3002-3 weeks 100-48892-2 weeks 500-17071-3 months 5,000-200,0002-3 months 10,000-100,0002nd trimester 3,000-50,0003rd trimester 1,000-50,000 . PROGRESS AND PROCEDURES Course of Care: In the ER patient received 2 L of fluid, no further signs of acute surgical abdomen. Abdomen is soft. Signs of uterus. Patient has no lower abdominal pain. At the time she has not had any abdominal pain in the emergency department she has had no vaginal bleeding or loss of fluid. able to follow up outpatient. Discussed with patient use of narcotics, she uses oxycodone for her knee. Patient understands the risks. She reports she will discuss this with her prescriber. Patient is stable. Disposition: Discharged. CLINICAL IMPRESSION Early, first trimester intrauterine . INSTRUCTIONS Drink plenty of fluids. Prescription Medications: Reglan 10 mg tablets: take 1 orally every 8 hours for 3 days as needed for nausea or vomiting. Dispense ten (10). No refills. Substitution is permissible. vitamins: Take 1 orally every day. Dispense thirty (30). No refils. Substitution is permissible. Follow-up: Follow up with your doctor in seven days. (Electronically signed by Yumiko Garcia P.A.-C 01/09/2017 13:25)
--- NOTE | 2017-01-08 23:00 | ED ORDER SUMMARY ---
..... Patient: MOISES CANALES OrderSheet [facility] VisitID: [id number] [place] [address] 21y, F Registration Date/Time: 01/08/2017 ORDER SHEET Weight: 81.6 kg (stated) Allergies: No Known Drug Allergy GENERAL ORDERS: CBC w Diff Urgent (21:01/08/2017 EKoroleva P.A.-C) (Ack 21:26 LMuller) (21:57 CBradburn R.N.) Serum Quantitative Urgent (:01/08/2017 EKoroleva P.A.-C) (Ack 21:26 LMuller) (21:37 RCollier R.N.) UA-Culture if indicated Urgent (:01/08/2017 EKoroleva P.A.-C) (Ack 21:26 LMuller) (21:37 RCollier R.N.) CMP Urgent (21:01/08/2017 EKoroleva P.A.-C) (Ack 21:26 LMuller) (21:57 CBradburn R.N.) Lipase Urgent (21:01/08/2017 EKoroleva P.A.-C) (Ack 21:26 LMuller) (21:57 CBradburn R.N.) UA-Culture if indicated Urgent (22:01/08/2017 EKoroleva P.A.-C) (Ack 22:32 LMuller) (22:42 RCollier R.N.) MEDICATION ORDERS: IV FLUIDS: IV NS : initial bolus 1000 mL (1000 mL/hr), then 1000 mL/hr for X1 (NOW); Edwin (21:01/08/2017 EKoroleva P.A.-C) (Ack 21:37 RCollier R.N.) (21:56 CBradburn R.N.) Reglan IV 10 mg (NOW) (21:01/08/2017 EKoroleva P.A.-C) (Ack 21:37 RCollier R.N.) (21:57 CBradburn R.N.) ORDER SHEET NOTES: [Electronically signed by Yumiko Garcia P.A.-C (13:25 01/09/2017)] [Electronically signed by Jazzmine De Jesus R.N. (:01/12/2017)] [Electronically locked/signed by Jazzmine De Jesus R.N. (:01/12/2017)]
--- NOTE | 2017-01-12 03:18 | ED MED RECONCILIATION SUMMARY ---
Patient: MOISES CANALES Medication Reconciliation Report [facility] VisitID: [id number] [place] [address] 21y, F Registration Date/Time: 01/08/2017 Weight: 81.6 kg Height/Length: 65 in. BMI: 30.0 ALLERGIES: No Known Drug Allergy The patient's Home Medications are listed below: THE FOLLOWING MEDICATIONS NEED TO BE RECONCILED: Sertraline HCl Oral 120mg, anxiety The source(s) of the original Home Medication information: Not obtained. The following Medications were given to the patient in the Emergency Department: IV NS IV Fluids bolus 0, then 1000 mL/hr, administered: 01/08/2017 9:49:00 PM Reglan [IVP] IVP 10 mg, administered: 01/08/2017 9:51:00 PM IV NS IV Fluids bolus 1000 mL, administered: 01/08/2017 10:53:00 PM The following Medications were prescribed to the patient: Reglan 10 mg tablets: take 1 orally every 8 hours for 3 days as needed for nausea or vomiting. Dispense ten (10). No refills. Substitution is permissible. -- Yumiko Garcia, P.A.-C vitamins: Take 1 orally every day. Dispense thirty (30). No refils. Substitution is permissible. -- Yumiko Garcia, P.A.-C
--- NOTE | 2017-01-12 03:18 | ED MAR SUMMARY ---
..... Medication Administration Record [facility] [address] [place] [address] Patient: MOISES CANALES Visit ID: [id number] 21y, F Weight: 81.6 kg Height/Length: 65 in BMI: 30 ALLERGIES: No Known Drug Allergy Start 21:49 01/08/2017 Samira James R.N., Stop 22:53 01/08/2017 Braydon Grace R.N. Medication Administered: IV NS (SALINE), Dose: IV Fluids, Rate: 1000 mL/hr, Dispensed: 1000 mL bag, Site: #1 right AC. Medication Ordered: IV NS : initial bolus 1000 mL (1000 mL/hr), then 1000 mL/hr for X1 (NOW); Edwin. Given 21:51 01/08/2017 Samira James R.N. Medication Administered: REGLAN [IVP] (METOCLOPRAMIDE HCL), Dose: 10 mg IVP over 2 minute(s), Site: #1 right AC. Medication Ordered: Reglan IV 10 mg (NOW). Start 22:53 01/08/2017 Braydon Grace R.N., Stop 23:30 01/08/2017 Jazzmine De Jesus RDevonNDevon Medication Administered: IV NS (SALINE), Dose: IV Fluids, Bolus: 1000 mL, Dispensed: 1000 mL bag, Site: #1 right AC. Medication Ordered: IV NS : initial bolus 1000 mL (1000 mL/hr), then 1000 mL/hr for X1 (NOW); Edwin.
--- NOTE | 2017-01-12 03:18 | ED DISCHARGE INSTRUCTIONS ---
Patient: MOISES CANALES General Instructions [facility] VisitID: [id number] [place] [address] 21y, F Registration Date/Time: 01/08/2017 Early, first trimester intrauterine . INSTRUCTIONS Drink plenty of fluids. Prescription Medications: Reglan 10 mg tablets: take 1 orally every 8 hours for 3 days as needed for nausea or vomiting. Dispense ten (10). No refills. Substitution is permissible. vitamins: Take 1 orally every day. Dispense thirty (30). No refils. Substitution is permissible. Follow-up: Follow up with your doctor in seven days. ADDITIONAL INFORMATION Your exam today shows that you are . During , it is normal to develop tender swollen breasts, frequent urination and mild vaginal discharge. During the first three months, nausea is common. Guidelines For A Healthy : To ensure that your baby is born healthy there are certain things that you can do: When you feel tired, you should REST. This is especially true in the later months of . Your body needs more FLUIDS than you may be used to: You should drink 8-10 glasses of juice, milk or water. Eat well-balanced MEALS at regular intervals to supply your body with enough protein. You can expect a total weight gain of about 30 pounds during the . Do not try to diet or lose weight while you are . Because of the extra nutritional needs during , take one VITAMIN daily. Do not take any other MEDICINE during your (prescribed or [id number]) unless your doctor specifically recommends this. Many drugs can have harmful effects on the growing baby. If NAUSEA or VOMITING become a problem, avoid greasy and fried foods. Eat several smaller meals throughout the day rather than three large meals. If you SMOKE, you must stop. The nicotine you breathe in goes right to the baby. Stay away from ALCOHOL, even in moderate amounts. Daily drinking will harm your baby and can cause permanent brain damage. RECREATIONAL DRUGS are harmful, especially cocaine, crack, and heroin. Marijuana should also be avoided. If you were using recreational drugs or prescribed medicine when you found out that you were , talk to your doctor about possible effects on the fetus. Follow Up: Call to arrange for care. This can be provided by your family doctor, an geospatial scientist ( specialist) or a primary care clinic. Get Prompt Medical Attention if any of the following occur: Vaginal bleeding Moderate or severe abdominal or back pain Excessive vomiting, unable to keep any fluids down for six hours Burning with urination Headache, dizziness or rapid weight gain You have been given the following additional information: , New Dx (Electronically signed by Yumiko Garcia P.A.-C 01/09/2017 13:25)
--- NOTE | 2017-01-12 03:18 | ED MAR SUMMARY ---
..... Medication Administration Record [facility] [address] [place] [address] Patient: MOISES CANALES Visit ID: [id number] 21y, F Weight: 81.6 kg Height/Length: 65 in BMI: 30 ALLERGIES: No Known Drug Allergy Start 21:49 01/08/2017 Samria James R.N., Stop 22:53 01/08/2017 Braydon Grace R.N. Medication Administered: IV NS (SALINE), Dose: IV Fluids, Rate: 1000 mL/hr, Dispensed: 1000 mL bag, Site: #1 right AC. Medication Ordered: IV NS : initial bolus 1000 mL (1000 mL/hr), then 1000 mL/hr for X1 (NOW); Edwin. Given 21:51 01/08/2017 Samira James R.N. Medication Administered: REGLAN [IVP] (METOCLOPRAMIDE HCL), Dose: 10 mg IVP over 2 minute(s), Site: #1 right AC. Medication Ordered: Reglan IV 10 mg (NOW). Start 22:53 01/08/2017 Braydon Grace R.N., Stop 23:30 01/08/2017 Jazzmine De Jesus RDevonNDevon Medication Administered: IV NS (SALINE), Dose: IV Fluids, Bolus: 1000 mL, Dispensed: 1000 mL bag, Site: #1 right AC. Medication Ordered: IV NS : initial bolus 1000 mL (1000 mL/hr), then 1000 mL/hr for X1 (NOW); Edwin.
--- NOTE | 2017-01-12 03:18 | ED DISCHARGE INSTRUCTIONS ---
Patient: MOISES CANALES General Instructions [facility] VisitID: [id number] [place] [address] 21y, F Registration Date/Time: 01/08/2017 Early, first trimester intrauterine . INSTRUCTIONS Drink plenty of fluids. Prescription Medications: Reglan 10 mg tablets: take 1 orally every 8 hours for 3 days as needed for nausea or vomiting. Dispense ten (10). No refills. Substitution is permissible. vitamins: Take 1 orally every day. Dispense thirty (30). No refils. Substitution is permissible. Follow-up: Follow up with your doctor in seven days. ADDITIONAL INFORMATION Your exam today shows that you are . During , it is normal to develop tender swollen breasts, frequent urination and mild vaginal discharge. During the first three months, nausea is common. Guidelines For A Healthy : To ensure that your baby is born healthy there are certain things that you can do: When you feel tired, you should REST. This is especially true in the later months of . Your body needs more FLUIDS than you may be used to: You should drink 8-10 glasses of juice, milk or water. Eat well-balanced MEALS at regular intervals to supply your body with enough protein. You can expect a total weight gain of about 30 pounds during the . Do not try to diet or lose weight while you are . Because of the extra nutritional needs during , take one VITAMIN daily. Do not take any other MEDICINE during your (prescribed or [id number]-[id number]) unless your doctor specifically recommends this. Many drugs can have harmful effects on the growing baby. If NAUSEA or VOMITING become a problem, avoid greasy and fried foods. Eat several smaller meals throughout the day rather than three large meals. If you SMOKE, you must stop. The nicotine you breathe in goes right to the baby. Stay away from ALCOHOL, even in moderate amounts. Daily drinking will harm your baby and can cause permanent brain damage. RECREATIONAL DRUGS are harmful, especially cocaine, crack, and heroin. Marijuana should also be avoided. If you were using recreational drugs or prescribed medicine when you found out that you were , talk to your doctor about possible effects on the fetus. Follow Up: Call to arrange for care. This can be provided by your family doctor, an vegetable cook ( specialist) or a primary care clinic. Get Prompt Medical Attention if any of the following occur: Vaginal bleeding Moderate or severe abdominal or back pain Excessive vomiting, unable to keep any fluids down for six hours Burning with urination Headache, dizziness or rapid weight gain You have been given the following additional information: , New Dx (Electronically signed by Yumiko Garcia P.A.-C 01/09/2017 13:25)
--- NOTE | 2017-01-12 03:18 | ED MED RECONCILIATION SUMMARY ---
Patient: MOISES CANALES Medication Reconciliation Report [facility] VisitID: [id number] [place] [address] 21y, F Registration Date/Time: 01/08/2017 Weight: 81.6 kg Height/Length: 65 in. BMI: 30.0 ALLERGIES: No Known Drug Allergy The patient's Home Medications are listed below: THE FOLLOWING MEDICATIONS NEED TO BE RECONCILED: Sertraline HCl Oral 120mg, anxiety The source(s) of the original Home Medication information: Not obtained. The following Medications were given to the patient in the Emergency Department: IV NS IV Fluids bolus 0, then 1000 mL/hr, administered: 01/08/2017 9:49:00 PM Reglan [IVP] IVP 10 mg, administered: 01/08/2017 9:51:00 PM IV NS IV Fluids bolus 1000 mL, administered: 01/08/2017 10:53:00 PM The following Medications were prescribed to the patient: Reglan 10 mg tablets: take 1 orally every 8 hours for 3 days as needed for nausea or vomiting. Dispense ten (10). No refills. Substitution is permissible. -- Yumiko Garcia, P.A.-C vitamins: Take 1 orally every day. Dispense thirty (30). No refils. Substitution is permissible. -- Yumiko Garcia, P.A.-C
== END 2017-01-08 23:31 | disposition home or self-care (01) ==
LOC: ED SRH 20:43
DX: O26.891 Other specified pregnancy related conditions, first trimester (principal); R19.7 Diarrhea, unspecified; R11.2 Nausea with vomiting, unspecified
CPT/HCPCS: 90004; 90100; 90197; 92235; 95059

== ENCOUNTER 2017-02-02 18:16 | Emergency (ER) | payer OTHER ==
--- NOTE | 2017-02-02 20:36 | ED CLINICAL REPORT ---
Clinical Report - Physicians/Mid Levels [facility] [address] [place] [address] 02/02/2017 18:17 Patient: MOISES CANALES Time Seen: 19:12 Feb 02 2017. Arrived- By ambulance. Historian- patient and EMS personnel. CPT: ER phys charges level 4 (#[id number]). HISTORY OF PRESENT ILLNESS Chief Complaint: UTERINE CONTRACTIONS and PELVIC PAIN. This started just prior to arrival today. She has had pelvic pain. Is still present but is better now. The patient complains of regular moderate contractions, with a frequency of about one every 10 minutes and duration of 15 seconds. No vaginal bleeding or discharge. She complains of a mild leakage of fluid. Gestational age is 12 weeks, by dates. Similar symptoms previously: As bad. Seen in the ED. Diagnosis: (miscarriage). Recent medical care: Not recently seen/assessed. REVIEW OF SYSTEMS No nausea, vomiting, diarrhea, black stools or bloody stools. No headache, double vision, fever, eye discharge or sore throat. No cough, difficulty breathing, chest pain, skin rash or chills. PAST HISTORY G 4; P 1; Ab 2. ( Intrauterine . URI. Vaginitis. Biliary Colic. Abdominal Pain. Gallstone(s). Threatened . Depression. Suicidal Ideation.). The patient has had problems with previous . Medications: vtamines. Allergies: No Known Drug Allergy. SOCIAL HISTORY Never smoker. No alcohol use or drug use. ADDITIONAL NOTES The nursing notes have been reviewed. PHYSICAL EXAM Vital Signs: 02/02/2017 18:20 BP: 116/70. HR: 80. RR: 18. O2 saturation: 99%. Temp: 98.3 F. Pain level now: 8/10. Appearance: Alert. No acute distress. Anxious. HEENT: Normal external inspection. Neck: Neck supple. CVS: Heart sounds normal. Respiratory: No respiratory distress. Breath sounds normal. Abdomen: Soft and nontender. Bowel sounds normal. Pelvic: Normal external exam. No contractions present and dilation. Uterine size: consistent with dates. Amniotic fluid: none. Nitrazine test: negative. (POC test reference range: negative). Skin: Normal skin color. No rash. Extremities: Extremities nontender. Neuro: Oriented X 3. LABS, X-RAYS, AND EKG Pelvic Sonogram: An intrauterine (11.5 week size) is present. Multiple foci of cardiac activity present (160). Study type: bedside abdominal and transvaginal evaluation. The study was independently viewed by me and interpreted contemporaneously by me. Prior studies were not available for comparison. Laboratory Tests: UA-Culture if indicated: (OBEY: 02/02/2017 19:10) ( Mscvd 02/02/2017 20:20) Final results Test Result Flag Units (Reference) URINE COLOR YELLOW URINE APPEARANCE CLOUDY URINE GLUCOSE NEGATIVE (NEGATIVE) URINE BILIRUBIN NEGATIVE (NEGATIVE) URINE KETONE NEGATIVE (NEGATIVE) URINE SPECIFIC GRAVITY 1.020 (1.010-1.030) URINE PH 7.0 (5.0-8.0) URINE PROTEIN NEGATIVE (NEGATIVE) URINE UROBILINOGEN 0.2 EU/dL (0.2-1.0) URINE NITRITE NEGATIVE (NEGATIVE) URINE BLOOD NEGATIVE (NEGATIVE) URINE LEUK ESTERASE NEGATIVE (NEGATIVE) URINE RBC NONE SEEN rbc/hpf (0-1) URINE WBC 0-1 wbc/hpf (0-1) URINE EPITHELIAL CELLS 0-1 EPI/hpf (0-5) URINE BACTERIA NONE SEEN (NONE SEEN) URINE COMMENT CULT NOT INDICATED 3+ AMORPHOUSURINE CULTURES ARE SET-UP BASED ON THE FOLLOWING CRITERIA:POSITIVE NITRITEPOSITIVE LEUKOCYTE ESTERASEGREATER THAN 10 WHITE BLOOD CELLSMODERATE (2+) OR GREATER BACTERIA CBC w Diff: (OBEY: 02/02/2017 17:51) ( MsgRcvd 02/02/2017 19:20) Final results Test Result Flag Units (Reference) WHITE BLOOD COUNT 8.2 K/uL (4.5-11.5) RED BLOOD COUNT 4.42 M/uL (4.00-5.20) HEMOGLOBIN 11.9 L gm/dL (12.0-16.0) HEMATOCRIT 35.5 L % (36.0-46.0) MEAN CELL VOLUME 80 fL (80-100) MEAN CORPUSCULAR HGB 27 pg (26-34) MEAN CORPUSCULAR HGB CONC 34 g/dL (31-37) RED CELL DISTRIBUTION WIDTH 14.2 % (11.6-14.8) PLATELET COUNT 257 K/uL (150-400) NEUTROPHIL % 62.3 % (50-75) LYMPH % 29.2 % (25-40) MONO % 6.9 % (3-14) EOSINOPHIL % 1.1 % (0-4) BASOPHIL % 0.5 % (0-2) Serum Quantitative: (OBEY: 02/02/2017 17:51) ( MsgRcvd 02/02/2017 20:01) Final results Test Result Flag Units (Reference) BETA HCG, QUANTITATIVE 14951 mIU/mL REFERENCE RANGE:Adult Males: <2 mIU/mLNon- Females: <6 mIU/mL Females:Approximate Approximate hCGGestational Age Range (mIU/mL) 0-1 week 0-501-2 weeks 40-3002-3 weeks 100-57370-6 weeks 500-25433-6 months 5,000-200,0002-3 months 10,000-100,0002nd trimester 3,000-50,0003rd trimester 1,000-50,000 . PROGRESS AND PROCEDURES Course of Care: Pt not having symptoms in the ER> Patient is stable. Patient/family counseled. Disposition: Discharged. Condition: stable. CLINICAL IMPRESSION transient abdominal cramping. Normal 12 week by ultrasound. INSTRUCTIONS No strenuous activity. Drink plenty of fluids. Warnings: Further evaluation is necessary. GENERAL WARNINGS: Return or contact your physician immediately if your condition worsens or changes unexpectedly, if not improving as expected, or if other problems arise. Follow-up: Follow up with an journal box inspector Sunday in five days as scheduled. Understanding of the discharge instructions verbalized by patient. Discharge instructions reviewed with and understanding was verbalized by spouse. (Electronically signed by Bulmaro Bolaños MD 02/04/2017 8:59) Jose CANALES MOISES Watts VisitID: [id number] Date: 02/02/2017 02/02/2017 20:57 18:45 02/02/2017 Site #1 started via IV in the right antecubital space with an 20g angiocath, with aseptic technique and good blood return; one attempt. Blood drawn: rainbow set. Labeled in the presence of the patient and sent to the lab. Saline lock flushed with 10 mL saline. IV Saline Lock Drip IV Discontinued: bag #1 STOPPED upon discharge. Total amount infused: 0 mL. IV patency established. IV site checked: no pain, redness, or swelling. IV flushed thoroughly. (Electronically signed by Felicity Becker R.N. - 02/02/2017 20:57) 02/02/2017 20:58 20:45 02/02/2017 Site #1 removed upon discharge. Bandaid applied. (Electronically signed by Felicity Becker R.N. - 02/02/2017 20:58)
--- NOTE | 2017-02-02 20:36 | ED CLINICAL REPORT ---
Clinical Report - Physicians/Mid Levels [facility] [address] [place] [address] 02/02/2017 18:17 Patient: MOISES CANALES Time Seen: 19:12 Feb 02 2017. Arrived- By ambulance. Historian- patient and EMS personnel. CPT: ER phys charges level 4 (#[id number]). HISTORY OF PRESENT ILLNESS Chief Complaint: UTERINE CONTRACTIONS and PELVIC PAIN. This started just prior to arrival today. She has had pelvic pain. Is still present but is better now. The patient complains of regular moderate contractions, with a frequency of about one every 10 minutes and duration of 15 seconds. No vaginal bleeding or discharge. She complains of a mild leakage of fluid. Gestational age is 12 weeks, by dates. Similar symptoms previously: As bad. Seen in the ED. Diagnosis: (miscarriage). Recent medical care: Not recently seen/assessed. REVIEW OF SYSTEMS No nausea, vomiting, diarrhea, black stools or bloody stools. No headache, double vision, fever, eye discharge or sore throat. No cough, difficulty breathing, chest pain, skin rash or chills. PAST HISTORY G 4; P 1; Ab 2. ( Intrauterine . URI. Vaginitis. Biliary Colic. Abdominal Pain. Gallstone(s). Threatened . Depression. Suicidal Ideation.). The patient has had problems with previous . Medications: vtamines. Allergies: No Known Drug Allergy. SOCIAL HISTORY Never smoker. No alcohol use or drug use. ADDITIONAL NOTES The nursing notes have been reviewed. PHYSICAL EXAM Vital Signs: 02/02/2017 18:20 BP: 116/70. HR: 80. RR: 18. O2 saturation: 99%. Temp: 98.3 F. Pain level now: 8/10. Appearance: Alert. No acute distress. Anxious. HEENT: Normal external inspection. Neck: Neck supple. CVS: Heart sounds normal. Respiratory: No respiratory distress. Breath sounds normal. Abdomen: Soft and nontender. Bowel sounds normal. Pelvic: Normal external exam. No contractions present and dilation. Uterine size: consistent with dates. Amniotic fluid: none. Nitrazine test: negative. (POC test reference range: negative). Skin: Normal skin color. No rash. Extremities: Extremities nontender. Neuro: Oriented X 3. LABS, X-RAYS, AND EKG Pelvic Sonogram: An intrauterine (11.5 week size) is present. Multiple foci of cardiac activity present (160). Study type: bedside abdominal and transvaginal evaluation. The study was independently viewed by me and interpreted contemporaneously by me. Prior studies were not available for comparison. Laboratory Tests: UA-Culture if indicated: (OBEY: 02/02/2017 19:10) ( Mscvd 02/02/2017 20:20) Final results Test Result Flag Units (Reference) URINE COLOR YELLOW URINE APPEARANCE CLOUDY URINE GLUCOSE NEGATIVE (NEGATIVE) URINE BILIRUBIN NEGATIVE (NEGATIVE) URINE KETONE NEGATIVE (NEGATIVE) URINE SPECIFIC GRAVITY 1.020 (1.010-1.030) URINE PH 7.0 (5.0-8.0) URINE PROTEIN NEGATIVE (NEGATIVE) URINE UROBILINOGEN 0.2 EU/dL (0.2-1.0) URINE NITRITE NEGATIVE (NEGATIVE) URINE BLOOD NEGATIVE (NEGATIVE) URINE LEUK ESTERASE NEGATIVE (NEGATIVE) URINE RBC NONE SEEN rbc/hpf (0-1) URINE WBC 0-1 wbc/hpf (0-1) URINE EPITHELIAL CELLS 0-1 EPI/hpf (0-5) URINE BACTERIA NONE SEEN (NONE SEEN) URINE COMMENT CULT NOT INDICATED 3+ AMORPHOUSURINE CULTURES ARE SET-UP BASED ON THE FOLLOWING CRITERIA:POSITIVE NITRITEPOSITIVE LEUKOCYTE ESTERASEGREATER THAN 10 WHITE BLOOD CELLSMODERATE (2+) OR GREATER BACTERIA CBC w Diff: (OBEY: 02/02/2017 17:51) ( MsgRcvd 02/02/2017 19:20) Final results Test Result Flag Units (Reference) WHITE BLOOD COUNT 8.2 K/uL (4.5-11.5) RED BLOOD COUNT 4.42 M/uL (4.00-5.20) HEMOGLOBIN 11.9 L gm/dL (12.0-16.0) HEMATOCRIT 35.5 L % (36.0-46.0) MEAN CELL VOLUME 80 fL (80-100) MEAN CORPUSCULAR HGB 27 pg (26-34) MEAN CORPUSCULAR HGB CONC 34 g/dL (31-37) RED CELL DISTRIBUTION WIDTH 14.2 % (11.6-14.8) PLATELET COUNT 257 K/uL (150-400) NEUTROPHIL % 62.3 % (50-75) LYMPH % 29.2 % (25-40) MONO % 6.9 % (3-14) EOSINOPHIL % 1.1 % (0-4) BASOPHIL % 0.5 % (0-2) Serum Quantitative: (OBEY: 02/02/2017 17:51) ( MsgRcvd 02/02/2017 20:01) Final results Test Result Flag Units (Reference) BETA HCG, QUANTITATIVE 02842 mIU/mL REFERENCE RANGE:Adult Males: <2 mIU/mLNon- Females: <6 mIU/mL Females:Approximate Approximate hCGGestational Age Range (mIU/mL) 0-1 week 0-501-2 weeks 40-3002-3 weeks 100-67915-1 weeks 500-73066-6 months 5,000-200,0002-3 months 10,000-100,0002nd trimester 3,000-50,0003rd trimester 1,000-50,000 . PROGRESS AND PROCEDURES Course of Care: Pt not having symptoms in the ER> Patient is stable. Patient/family counseled. Disposition: Discharged. Condition: stable. CLINICAL IMPRESSION transient abdominal cramping. Normal 12 week by ultrasound. INSTRUCTIONS No strenuous activity. Drink plenty of fluids. Warnings: Further evaluation is necessary. GENERAL WARNINGS: Return or contact your physician immediately if your condition worsens or changes unexpectedly, if not improving as expected, or if other problems arise. Follow-up: Follow up with an direct support professional home health Sunday in five days as scheduled. Understanding of the discharge instructions verbalized by patient. Discharge instructions reviewed with and understanding was verbalized by spouse. (Electronically signed by Bulmaro Bolaños MD 02/04/2017 8:59) Jose CANALES MOISES Watts VisitID: [id number] Date: 02/02/2017 02/02/2017 20:57 18:45 02/02/2017 Site #1 started via IV in the right antecubital space with an 20g angiocath, with aseptic technique and good blood return; one attempt. Blood drawn: rainbow set. Labeled in the presence of the patient and sent to the lab. Saline lock flushed with 10 mL saline. IV Saline Lock Drip IV Discontinued: bag #1 STOPPED upon discharge. Total amount infused: 0 mL. IV patency established. IV site checked: no pain, redness, or swelling. IV flushed thoroughly. (Electronically signed by Felicity Becker R.N. - 02/02/2017 20:57) 02/02/2017 20:58 20:45 02/02/2017 Site #1 removed upon discharge. Bandaid applied. (Electronically signed by Felicity Becker R.N. - 02/02/2017 20:58)
--- NOTE | 2017-02-02 20:36 | ED NURSING NOTES ---
Clinical Report - Nurses [facility] [address] [place] [address] 02/02/2017 18:17 Patient: MOISES CANALES TRIAGE Acuity: LEVEL 3. Chief Complaint: ABDOMINAL CRAMPS and SPOTTING and (pt states that she has had cramping and spotting since this am, had somewetness "like my water broke" with wet underwear about 1 hour ago. denies any clots passing). --18:32 Felicity Becker R.N. 18:20 02/02/17. BP: 116/70. HR: 80. RR: 18. O2 saturation: 99%. Temp: 98.3 F. Pain level now: 810. --18:32 Felicity Becker R.N. Weight: 83 kg stated. Height/Length: 64 inches Per Patient. BMI: 31.4. --18:31 Felicity Becker R.N. Medications vtamines. --18:31 Felicity Becker R.N. Allergies No Known Drug Allergy. --18:31 Felicity Becker R.N. History ( c/o nausea without vomiting). Last oral intake by patient was (1500- sandwich). PAST MEDICAL HX: OB history: G 4; P 1; Ab 2 (TAB x2, SAB=0). SURGERY HX: Dilatation & Curettage (x2). SOCIAL HX: Never smoker. No alcohol use or drug use. --18:32 Felicity Becker R.N. PROBLEMS: Intrauterine . URI. Vaginitis. Biliary Colic. Abdominal Pain. Gallstone(s). Threatened . Depression. Suicidal Ideation. --18:30 Felicity Becker R.N. Interventions ID band on patient. To treatment room. --18:32 Felicity Becker R.N. PHYSICAL ASSESSMENT 18:20. Ambulatory to room. Patient gowned. GENERAL / NEURO / PSYCH: Alert. Oriented X 4. Appears in no acute distress. Appears anxious. RESPIRATORY: Respirations not labored. CVS: Capillary refill less than 2 seconds. GI / : Abdomen soft. ( states she is cramping and spotting). SKIN: Skin is warm and dry. --18:34 Felicity Becker R.N. NURSING PROGRESS NOTES 18:20. Patient gowned. Head of bed elevated. Reassurance given. Patient identifiers checked. Call light placed in reach. Side rails up. Bed placed in lowest position. Patient ready for evaluation- chart flagged. --18:33 Felicity Becker R.N. 18:45 02/02/2017 Site #1 started via IV in the right antecubital space with an 20g angiocath, with aseptic technique and good blood return; one attempt. Blood drawn: rainbow set. Labeled in the presence of the patient and sent to the lab. Saline lock flushed with 10 mL saline. --19:16 eFlicity Becker R.N. 18:30 FHT's attempted= unsuccessful. ERMD notified. --19:17 Felicity Becker R.N. 18:50. PELVIC EXAM: Pelvic exam performed by ED physician. Assisted by a nurse. Preparation: patient placed in lithotomy position. Procedure. (Nitrozine swab tested in vaginal vault= negative.). --19:17 Felicity Becker R.N. 19:05. ( US at bedside to do exam). --19:18 Felicity Becker R.N. 19:35. Patient ID band checked for patient name and birthdate: patient confirmed. Clean catch urine collected with return of yellow-colored cloudy urine; sample sent to lab for urinalysis and culture. Specimen labeled in the presence of the patient (noted that urine was cloudy, asked pt if she had pain urination). --19:59 Felicity Becker R.N. 20:05 resting quietly, boyfriend at bedside--waiting for lab and US reports. --20:56 Felicity Becker R.N. DISPOSITION / DISCHARGE 20:50. Condition at departure: unchanged and stable. No learning barriers present. Discharge instructions provided and reviewed with the patient. Reviewed medication(s) (tylenol). Patient verbalized understanding. Written instructions provided in Nigerian. The patient was discharged home and accompanied by winery cellar hand. She left the Emergency Department ambulatory and via private vehicle. Correctional Guard driving. --20:55 Felicity Becker R.N. 20:50 02/02/17. BP: 112/66. HR: 72. RR: 16. O2 saturation: 100%. Temp: deferred. Pain level now: 03/03. --20:55 Felicity Becker R.N. Locked/Released at 02/02/2017 20:57 by Felicity Becker R.N.
--- NOTE | 2017-02-02 20:36 | ED ORDER SUMMARY ---
..... Patient: MOISES CANALES OrderSheet [facility] VisitID: [id number] [place] [address] 21y, F Registration Date/Time: 02/02/2017 ORDER SHEET Weight: 83.0 kg (stated) Allergies: No Known Drug Allergy GENERAL ORDERS: Serum Quantitative Urgent (18:44 02/02/2017 Lay ALDANA) (Ack 18:54 IJurca ER Tech1) (19:19 DDean R.N.) UA-Culture if indicated Urgent (18:45 02/02/2017 Lay ALDANA) (Ack 18:54 Hia ER Tech1) (19:59 DDean R.N.) Type & Rh Urgent (18:45 02/02/2017 Lay ALDANA) (Ack 18:54 IJurca ER Tech1) (Cancelled: PREVIOUS [id number] CHagerty ER [employer]) CBC w Diff Urgent (18:45 02/02/2017 Lay ALDANA) (Ack 18:54 IJurca ER Tech1) (19:19 DDean R.N.) US OB 1st Trimester w Transvag (12 weeks) Urgent (19:01 02/02/2017 Lay ALDANA) (Ack 19:02 IJurca ER Tech1) (19:51 CHagerty ER [employer]) MEDICATION ORDERS: IV FLUIDS: IV Saline Lock (18:45 02/02/2017 Lay ALDANA) (Ack 18:52 DDean R.N.) (19:19 DDean R.N.) ORDER SHEET NOTES: [Electronically signed by Felicity Becker R.N. (20:57 02/02/2017)] [Electronically signed by Bulmaro Bolaños MD (08:59 02/04/2017)] [Electronically locked/signed by Felicity Becker R.N. (20:57 02/02/2017)]
--- NOTE | 2017-02-02 20:36 | ED ORDER SUMMARY ---
..... Patient: MOISES CANALES OrderSheet [facility] VisitID: [id number] [place] [address] 21y, F Registration Date/Time: 02/02/2017 ORDER SHEET Weight: 83.0 kg (stated) Allergies: No Known Drug Allergy GENERAL ORDERS: Serum Quantitative Urgent (18:44 02/02/2017 Lay ALDANA) (Ack 18:54 IJurca ER Tech1) (19:19 DDean R.N.) UA-Culture if indicated Urgent (18:45 02/02/2017 Lay ALDANA) (Ack 18:54 Hia ER Tech1) (19:59 DDean R.N.) Type & Rh Urgent (18:45 02/02/2017 Lay ALDANA) (Ack 18:54 IJurca ER Tech1) (Cancelled: PREVIOUS [id number] CHagerty ER Cost And Risk Analysis Manager) CBC w Diff Urgent (18:45 02/02/2017 Lay ALDANA) (Ack 18:54 IJurca ER Tech1) (19:19 DDean R.N.) US OB 1st Trimester w Transvag (12 weeks) Urgent (19:01 02/02/2017 Lay ALDANA) (Ack 19:02 IJurca ER Tech1) (19:51 CHagerty ER Cost And Risk Analysis Manager) MEDICATION ORDERS: IV FLUIDS: IV Saline Lock (18:45 02/02/2017 Lay ALDANA) (Ack 18:52 DDean R.N.) (19:19 DDean R.N.) ORDER SHEET NOTES: [Electronically signed by Felicity Becker R.N. (20:57 02/02/2017)] [Electronically signed by Bulmaro Bolaños MD (08:59 02/04/2017)] [Electronically locked/signed by Felicity Becker R.N. (20:57 02/02/2017)]
--- NOTE | 2017-02-02 20:36 | ED NURSING NOTES ---
Clinical Report - Nurses [facility] [address] [place] [address] 02/02/2017 18:17 Patient: MOISES CANALES TRIAGE Acuity: LEVEL 3. Chief Complaint: ABDOMINAL CRAMPS and SPOTTING and (pt states that she has had cramping and spotting since this am, had somewetness "like my water broke" with wet underwear about 1 hour ago. denies any clots passing). --18:32 Felicity Becker R.N. 18:20 02/02/17. BP: 116/70. HR: 80. RR: 18. O2 saturation: 99%. Temp: 98.3 F. Pain level now: 810. --18:32 Felicity Becker R.N. Weight: 83 kg stated. Height/Length: 64 inches Per Patient. BMI: 31.4. --18:31 Felicity Becker R.N. Medications vtamines. --18:31 Felicity Becker R.N. Allergies No Known Drug Allergy. --18:31 Felicity Becker R.N. History ( c/o nausea without vomiting). Last oral intake by patient was (1500- sandwich). PAST MEDICAL HX: OB history: G 4; P 1; Ab 2 (TAB x2, SAB=0). SURGERY HX: Dilatation & Curettage (x2). SOCIAL HX: Never smoker. No alcohol use or drug use. --18:32 Felicity Becker R.N. PROBLEMS: Intrauterine . URI. Vaginitis. Biliary Colic. Abdominal Pain. Gallstone(s). Threatened . Depression. Suicidal Ideation. --18:30 Felicity Becker R.N. Interventions ID band on patient. To treatment room. --18:32 Felicity Becker R.N. PHYSICAL ASSESSMENT 18:20. Ambulatory to room. Patient gowned. GENERAL / NEURO / PSYCH: Alert. Oriented X 4. Appears in no acute distress. Appears anxious. RESPIRATORY: Respirations not labored. CVS: Capillary refill less than 2 seconds. GI / : Abdomen soft. ( states she is cramping and spotting). SKIN: Skin is warm and dry. --18:34 Felicity Becker R.N. NURSING PROGRESS NOTES 18:20. Patient gowned. Head of bed elevated. Reassurance given. Patient identifiers checked. Call light placed in reach. Side rails up. Bed placed in lowest position. Patient ready for evaluation- chart flagged. --18:33 Felicity Becker R.N. 18:45 02/02/2017 Site #1 started via IV in the right antecubital space with an 20g angiocath, with aseptic technique and good blood return; one attempt. Blood drawn: rainbow set. Labeled in the presence of the patient and sent to the lab. Saline lock flushed with 10 mL saline. --19:16 Felicity Becker R.N. 18:30 FHT's attempted= unsuccessful. ERMD notified. --19:17 [place] Becker R.N. 18:50. PELVIC EXAM: Pelvic exam performed by ED physician. Assisted by a nurse. Preparation: patient placed in lithotomy position. Procedure. (Nitrozine swab tested in vaginal vault= negative.). --19:17 Felicity Becker R.N. 19:05. ( US at bedside to do exam). --19:18 Felicity Becker R.N. 19:35. Patient ID band checked for patient name and birthdate: patient confirmed. Clean catch urine collected with return of yellow-colored cloudy urine; sample sent to lab for urinalysis and culture. Specimen labeled in the presence of the patient (noted that urine was cloudy, asked pt if she had pain urination). --19:59 Felicity Becker R.N. 20:05 resting quietly, boyfriend at bedside--waiting for lab and US reports. --20:56 Felicity Becker R.N. DISPOSITION / DISCHARGE 20:50. Condition at departure: unchanged and stable. No learning barriers present. Discharge instructions provided and reviewed with the patient. Reviewed medication(s) (tylenol). Patient verbalized understanding. Written instructions provided in Vincentian. The patient was discharged home and accompanied by hand coremaker. She left the Emergency Department ambulatory and via private vehicle. Cab Supervisor driving. --20:55 Felicity Becker R.N. 20:50 02/02/17. BP: 112/66. HR: 72. RR: 16. O2 saturation: 100%. Temp: deferred. Pain level now: 03/03. --20:55 Felicity Becker R.N. Locked/Released at 02/02/2017 20:57 by Felicity Becker R.N.
--- NOTE | 2017-02-02 20:52 | DIAGNOSTIC IMAGING REPORT ---
PROCEDURE: US OB 1ST TRIMESTER W/TRANSVAG INDICATION: Allowing. Check viability. TECHNIQUE: Simons scale, color, and spectral Doppler transabdominal and endovaginal sonographic images of the first trimester gravid uterus were obtained. COMPARISON: Compared to obstetric ultrasound on 12/28/2016. FINDINGS: TRANSABDOMINAL SCANS: There is early intrauterine . TRANSVAGINAL SCANS: There is early viable intrauterine with cardiac activity (167). [place]-rump length 5.2 cm (12.0 weeks). Placenta is anterior and there is no evidence of previa. Normal fluid. IMPRESSION: 1. Early viable intrauterine at 12.0 weeks menstrual age (plus or minus 1 week). ALONZO is 08/18/2017. 2. Normal growth. 3. Report and findings called to the emergency department for Dr. Bolaños.
--- NOTE | 2017-02-04 08:59 | ED MAR SUMMARY ---
..... Medication Administration Record [facility] [address] [place], [place] [id number] Patient: MOISES CANALES Visit ID: [id number] 21y, F Weight: 83.0 kg Height/Length: 64 in BMI: 31.4 ALLERGIES: No Known Drug Allergy
--- NOTE | 2017-02-04 08:59 | ED DISCHARGE INSTRUCTIONS ---
Patient: MOISES CANALES General Instructions [facility] VisitID: [id number] [address] [place] [address] 21y, F Registration Date/Time: 02/02/2017 transient abdominal cramping. Normal 12 week by ultrasound. INSTRUCTIONS No strenuous activity. Drink plenty of fluids. Warnings: Further evaluation is necessary. GENERAL WARNINGS: Return or contact your physician immediately if your condition worsens or changes unexpectedly, if not improving as expected, or if other problems arise. Follow-up: Follow up with an physical therapist aide Sunday in five days as scheduled. Understanding of the discharge instructions verbalized by patient. Discharge instructions reviewed with and understanding was verbalized by spouse. No strenuous activity. (Electronically signed by Bulmaro Bolaños MD 02/04/2017 8:59)
--- NOTE | 2017-02-04 08:59 | ED DISCHARGE INSTRUCTIONS ---
Patient: MOISES CANALES General Instructions [facility] VisitID: [id number] [address] [place] [address] 21y, F Registration Date/Time: 02/02/2017 transient abdominal cramping. Normal 12 week by ultrasound. INSTRUCTIONS No strenuous activity. Drink plenty of fluids. Warnings: Further evaluation is necessary. GENERAL WARNINGS: Return or contact your physician immediately if your condition worsens or changes unexpectedly, if not improving as expected, or if other problems arise. Follow-up: Follow up with an cart pusher Sunday in five days as scheduled. Understanding of the discharge instructions verbalized by patient. Discharge instructions reviewed with and understanding was verbalized by spouse. No strenuous activity. (Electronically signed by Bulmaro Bolaños MD 02/04/2017 8:59)
--- NOTE | 2017-02-04 08:59 | ED MED RECONCILIATION SUMMARY ---
Patient: MOISES CANALES Medication Reconciliation Report [facility] VisitID: [id number] [address] [place] [address] 21y, F Registration Date/Time: 02/02/2017 Weight: 83.0 kg Height/Length: 64 in. BMI: 31.4 ALLERGIES: No Known Drug Allergy The patient's Home Medications are listed below: THE FOLLOWING MEDICATIONS NEED TO BE RECONCILED: vtamines The source(s) of the original Home Medication information: Not obtained. The following Medications were given to the patient in the Emergency Department: None. The following Medications were prescribed to the patient: None.
--- NOTE | 2017-02-04 08:59 | ED MAR SUMMARY ---
..... Medication Administration Record [facility] [address] [place], [place] [id number] Patient: MOISES CANALES Visit ID: [id number] 21y, F Weight: 83.0 kg Height/Length: 64 in BMI: 31.4 ALLERGIES: No Known Drug Allergy
--- NOTE | 2017-02-04 08:59 | ED MED RECONCILIATION SUMMARY ---
Patient: MOISES CANALES Medication Reconciliation Report [facility] VisitID: [id number] [address] [place] [address] 21y, F Registration Date/Time: 02/02/2017 Weight: 83.0 kg Height/Length: 64 in. BMI: 31.4 ALLERGIES: No Known Drug Allergy The patient's Home Medications are listed below: THE FOLLOWING MEDICATIONS NEED TO BE RECONCILED: vtamines The source(s) of the original Home Medication information: Not obtained. The following Medications were given to the patient in the Emergency Department: None. The following Medications were prescribed to the patient: None.
== END 2017-02-02 20:50 | disposition home or self-care (01) ==
LOC: ED SRH 18:16
DX: O99.89 Other specified diseases and conditions complicating pregnancy, childbirth and the puerperium (principal); R10.2 Pelvic and perineal pain; Z3A.12 12 weeks gestation of pregnancy
CPT/HCPCS: 90004; 90197; 95059

== ENCOUNTER 2017-02-17 20:38 | Emergency (ER) | payer OTHER ==
--- NOTE | 2017-02-17 22:23 | ED ORDER SUMMARY ---
..... Patient: MOISES CANALES OrderSheet [facility] VisitID: [id number] [place] [address] 21y, F Registration Date/Time: 02/17/2017 ORDER SHEET Weight: 78.4 kg (stated) Allergies: No Known Drug Allergy GENERAL ORDERS: UA-Culture if indicated Urgent (21:10 02/17/2017 Toniivedigna R.N. per protocol) (Ack 21:13 Suleman) (21:58 JSanders R.N.) GC/Chlamydia (Cervix) (...) Urgent (21:44 02/17/2017 Rosa Main) (Ack 22:03 Suleman) (22:35 Toniivedigna R.N.) Wet Prep (Cervix) (...) Urgent (21:45 02/17/2017 Rosa Main) (Ack 22:03 Suleman) (22:35 JQuivey R.N.) MEDICATION ORDERS: Flagyl PO 500 mg (NOW) (22:22 02/17/2017 Rosa Main) (Ack 22:35 Mami R.N.) (22:42 Toniivedigna R.N.) IV FLUIDS: ORDER SHEET NOTES: [Electronically signed by Donato Black R.N. (22:42 02/17/2017)] [Electronically signed by Shashank Garcia Dr. (03:30 02/18/2017)] [Electronically locked/signed by Donato Black R.N. (22:42 02/17/2017)]
--- NOTE | 2017-02-17 22:23 | ED CLINICAL REPORT ---
Clinical Report - Physicians/Mid Levels [facility] [address] [place] [address] 02/17/2017 20:37 Patient: MOISES CANALES Time Seen: 21:01; initial patient contact. Arrived- By private vehicle. Historian- patient. HISTORY OF PRESENT ILLNESS Chief Complaint: VAGINAL DISCHARGE. This started today and still present. The symptoms are described as mild. Modifying factors- worsened by urination. Not relieved by anything. The patient has had mild abdominal pain. The pain is described as located in the suprapubic region. No nausea, vomiting, diarrhea or radiation of abdominal pain to the back. She has had a moderate amount of yellow, white vaginal discharge. No low back pain, flank pain, urgency of urination or hematuria. She has had pain with urination. The patient has had urinary frequency. Currently . Receiving care. Similar symptoms previously: None. Recent medical care: Not recently seen/assessed. REVIEW OF SYSTEMS No nausea, vomiting, diarrhea, fever or chills. All systems otherwise negative, except as recorded above. PAST HISTORY ( Anxiety Reaction. PTSD. Biliary Colic. . Depression. Suicidal Ideation. ADDITIONAL SURGERIES: Dilatation & Curettage.). SOCIAL HISTORY Never smoker. No alcohol use or drug use. ADDITIONAL NOTES The nursing notes have been reviewed. PHYSICAL EXAM Vital Signs: 02/17/2017 20:58 BP: 108/61. HR: 81. RR: 16. O2 saturation: 98%. Temp: 98.4 F. Pain level now: 8/10. Have been reviewed as normal. Appearance: Alert. Oriented X3. No acute distress. HEENT: Normal external inspection. CVS: Heart sounds normal. Rate normal. Rhythm normal. Respiratory: No respiratory distress. Breath sounds normal. Abdomen: Soft. Tenderness in the suprapubic area. No guarding or rebound tenderness. Bowel sounds normal. No organomegaly. No mass. : External inspection normal. A scant amount of thick, white, yellow and malodorous vaginal discharge present. No vaginal bleeding. Cervical os closed. No cervicitis. Bimanual exam normal. (Female nora Trent present for exam). Neuro: Oriented X 3. LABS, X-RAYS, AND EKG Laboratory Tests: UA-Culture if indicated: (OBEY: 02/17/2017 21:00) ( MsgRcvd 02/17/2017 21:30) Final results Test Result Flag Units (Reference) URINE COLOR YELLOW URINE APPEARANCE SL CLOUDY URINE GLUCOSE NEGATIVE (NEGATIVE) URINE BILIRUBIN NEGATIVE (NEGATIVE) URINE KETONE NEGATIVE (NEGATIVE) URINE SPECIFIC GRAVITY 1.025 (1.010-1.030) URINE PH 6.0 (5.0-8.0) URINE PROTEIN NEGATIVE (NEGATIVE) URINE UROBILINOGEN 0.2 EU/dL (0.2-1.0) URINE NITRITE NEGATIVE (NEGATIVE) URINE BLOOD TRACE-LYSED (NEGATIVE) URINE LEUK ESTERASE TRACE (NEGATIVE) URINE RBC 1-3 rbc/hpf (0-1) URINE WBC 5-10 wbc/hpf (0-1) URINE EPITHELIAL CELLS 5-10 EPI/hpf (0-5) URINE BACTERIA MODERATE (2+ TO 3+) (NONE SEEN) URINE COMMENT CULTURE INDICATED 1+ MUCUSURINE CULTURES ARE SET-UP BASED ON THE FOLLOWING CRITERIA:POSITIVE NITRITEPOSITIVE LEUKOCYTE ESTERASEGREATER THAN 10 WHITE BLOOD CELLSMODERATE (2+) OR GREATER BACTERIA . PROGRESS AND PROCEDURES Disposition: Discharged home in good and improved condition. Condition: good. CLINICAL IMPRESSION Acute mild bacterial vaginitis INSTRUCTIONS Prescription Medications: Flagyl 500 mg: Take 1 tablet orally every 12 hours for 7 days. No refill. Substitution is permissible Follow-up: Follow up with your doctor in about two days. Call for an appointment. Screening today revealed the patient's blood pressure to be in the normal range. (Electronically signed by Shashank Garcia Dr. 02/18/2017 3:30)
--- NOTE | 2017-02-17 22:23 | ED NURSING NOTES ---
Clinical Report - Nurses [facility] [address] [place] [address] 02/17/2017 20:37 Patient: MOISES CANALES TRIAGE Triage time 20:58. Acuity: LEVEL 4. Chief Complaint: VAGINAL DISCHARGE and PAINFUL URINATION, URGENCY and FREQUENCY. 21:09. Alert. --21:09 Donato Black R.N. 20:58 02/17/17. BP: 108/61. HR: 81. RR: 16. O2 saturation: 98%. Temp: 98.4 F (oral). Pain level now: 05/03. --21: Donato Black R.N. Weight: 78.4 kg stated. Height/Length: 65 inches Per Patient. BMI: 28.8. --21:02 Donato Black R.N. Medications None. --21:02 Donato Blcak R.N. Medication/allergy information source: the patient. --21: Donato Black R.N. Allergies No Known Drug Allergy. --21:02 Donato Black R.N. History Arrived by private vehicle. Historian: patient. Accompanied by friend. Primary physician (Radha). This started today. 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 PAST MEDICAL HX: Immunizations: up-to-date. Last normal menstrual period- Nov 09, 2016. Currently : EDC: Aug 16, 2017. G 3. P 1. Ab 1. SOCIAL HX: Never smoker. No alcohol use or drug use. No infectious disease exposure. ABUSE ASSESSMENT: No report of abuse. FALL RISK ASSESSMENT: Fall risk assessment completed. No fall risk identified. NUTRITIONAL RISK ASSESSMENT: The nutritional risk assessment revealed no deficiencies. FUNCTIONAL ASSESSMENT: Functional assessment: no impairments noted. LEARNING NEEDS ASSESSMENT: The learning needs assessment revealed no barriers. SKIN INTEGRITY ASSESSMENT: Skin integrity risk assessment completed. No skin integrity risk identified. --21:09 Donato Black R.N. PROBLEMS: Anxiety Reaction. PTSD. Biliary Colic. . Depression. Suicidal Ideation. --21:02 Donato Black R.N. ADDITIONAL SURGERIES: Dilatation & Curettage. --21:02 Donato Black R.N. Interventions ID band on patient. To treatment room. --21:09 Donato Black R.N. PHYSICAL ASSESSMENT 20:59. Ambulatory to room. GENERAL / NEURO / PSYCH: Alert. Oriented X 4. HEENT: Mucous membranes are pink. RESPIRATORY: Respirations not labored. SKIN: Skin is warm and dry. --20:59 Donato Black R.N. NURSING PROGRESS NOTES 20:59. Two patient identifiers checked. Call light placed in reach. Patient placed in chair. Patient ready for evaluation- chart flagged. --20:59 Donato Black R.N. 20:59. Patient ID band checked for patient name and birthdate: patient confirmed. Clean catch urine collected with return of yellow-colored cloudy urine; sample sent to lab for urinalysis. Specimen labeled in the presence of the patient. --21:01 Donato Black R.N. 22:00. PELVIC EXAM: Pelvic exam performed by ED physician. Assisted by one tech. Preparation: pelvic tray; patient placed in lithotomy position. Procedure: speculum exam. Status post-procedure: she was stable. Total time of assist / procedure: 15 minutes. --22:20 Miley Talbot 22:00. Mud Engineer provided for the pelvic exam by the physician. --22:21 Miley Talbot 22:37. The patient is calm and resting quietly. SKIN: Skin is warm and dry. --22:39 Donato Black R.N. 22:37 02/17/2017 Flagyl (MetroNIDAZOLE) PO 500 mg given. Allergies verified and confirmed 5 rights. --22:42 Donato Black R.N. DISPOSITION / DISCHARGE 22:29 02/17/17. BP: 100/57 taken on the left arm, via an automated monitor, while sitting. HR: 74 (regular, normal rate and strong). RR: 16 (regular, unlabored and normal). O2 saturation: 100% on room air. Temp: 97.7 F (oral). Pain level now: 0/10. --22:30 Cristel Solares R.N. Departure time: 22:39. Condition at departure: stable. No learning barriers present. Discharge instructions provided and reviewed with mental health practitioner and the patient. Reviewed medication(s) side effects, precautions, dosing and course information. Prescription(s) given to the patient. Patient verbalized understanding. Written instructions provided in [place]ine[place]. The patient was discharged home and accompanied by mental health practitioner. She left the Emergency Department ambulatory and via private vehicle. Explosive Operator Fuse driving. FALL RISK ASSESSMENT: Fall risk assessment completed. No fall risk identified. --22:39 Donato Black R.N. Locked/Released at 02/17/2017 22:43 by Donato Black R.N.
--- NOTE | 2017-02-17 22:23 | ED ORDER SUMMARY ---
..... Patient: MOISES CANALES OrderSheet [facility] VisitID: [id number] [place] [address] 21y, F Registration Date/Time: 02/17/2017 ORDER SHEET Weight: 78.4 kg (stated) Allergies: No Known Drug Allergy GENERAL ORDERS: UA-Culture if indicated Urgent (21:10 02/17/2017 Toniivedigna R.N. per protocol) (Ack 21:13 Suleman) (21:58 JSanders R.N.) GC/Chlamydia (Cervix) (...) Urgent (21:44 02/17/2017 Rosa Main) (Ack 22:03 Suleman) (22:35 Toniivedigna R.N.) Wet Prep (Cervix) (...) Urgent (21:45 02/17/2017 Rosa Main) (Ack 22:03 Suleman) (22:35 JQuivey R.N.) MEDICATION ORDERS: Flagyl PO 500 mg (NOW) (22:22 02/17/2017 Rosa Main) (Ack 22:35 Mami R.N.) (22:42 Toniivedigna R.N.) IV FLUIDS: ORDER SHEET NOTES: [Electronically signed by Donato Black R.N. (22:42 02/17/2017)] [Electronically signed by Shashank Garcia Dr. (03:30 02/18/2017)] [Electronically locked/signed by Donato Black R.N. (22:42 02/17/2017)]
--- NOTE | 2017-02-17 22:23 | ED NURSING NOTES ---
Clinical Report - Nurses [facility] [address] [place] [address] 02/17/2017 20:37 Patient: MOISES CANALES TRIAGE Triage time 20:58. Acuity: LEVEL 4. Chief Complaint: VAGINAL DISCHARGE and PAINFUL URINATION, URGENCY and FREQUENCY. 21:09. Alert. --21:09 Donato Black R.N. 20:58 02/17/17. BP: 108/61. HR: 81. RR: 16. O2 saturation: 98%. Temp: 98.4 F (oral). Pain level now: 05/03. --21: Donato Black R.N. Weight: 78.4 kg stated. Height/Length: 65 inches Per Patient. BMI: 28.8. --21:02 Donato Black R.N. Medications None. --21:02 Donato Black R.N. Medication/allergy information source: the patient. --21: Donato Black R.N. Allergies No Known Drug Allergy. --21:02 Donato Black R.N. History Arrived by private vehicle. Historian: patient. Accompanied by friend. Primary physician (Radha). This started today. 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 PAST MEDICAL HX: Immunizations: up-to-date. Last normal menstrual period- Nov 09, 2016. Currently : EDC: Aug 16, 2017. G 3. P 1. Ab 1. SOCIAL HX: Never smoker. No alcohol use or drug use. No infectious disease exposure. ABUSE ASSESSMENT: No report of abuse. FALL RISK ASSESSMENT: Fall risk assessment completed. No fall risk identified. NUTRITIONAL RISK ASSESSMENT: The nutritional risk assessment revealed no deficiencies. FUNCTIONAL ASSESSMENT: Functional assessment: no impairments noted. LEARNING NEEDS ASSESSMENT: The learning needs assessment revealed no barriers. SKIN INTEGRITY ASSESSMENT: Skin integrity risk assessment completed. No skin integrity risk identified. --21:09 Donato Black R.N. PROBLEMS: Anxiety Reaction. PTSD. Biliary Colic. . Depression. Suicidal Ideation. --21:02 Donato Black R.N. ADDITIONAL SURGERIES: Dilatation & Curettage. --21:02 Donato Black R.N. Interventions ID band on patient. To treatment room. --21:09 Donato Black R.N. PHYSICAL ASSESSMENT 20:59. Ambulatory to room. GENERAL / NEURO / PSYCH: Alert. Oriented X 4. HEENT: Mucous membranes are pink. RESPIRATORY: Respirations not labored. SKIN: Skin is warm and dry. --20:59 Donato Black R.N. NURSING PROGRESS NOTES 20:59. Two patient identifiers checked. Call light placed in reach. Patient placed in chair. Patient ready for evaluation- chart flagged. --20:59 Donato Black R.N. 20:59. Patient ID band checked for patient name and birthdate: patient confirmed. Clean catch urine collected with return of yellow-colored cloudy urine; sample sent to lab for urinalysis. Specimen labeled in the presence of the patient. --21:01 Donato Black R.N. 22:00. PELVIC EXAM: Pelvic exam performed by ED physician. Assisted by one tech. Preparation: pelvic tray; patient placed in lithotomy position. Procedure: speculum exam. Status post-procedure: she was stable. Total time of assist / procedure: 15 minutes. --22:20 Miley Talbot 22:00. Binding Cutter provided for the pelvic exam by the physician. --22:21 Miley Talbot 22:37. The patient is calm and resting quietly. SKIN: Skin is warm and dry. --22:39 Donato Black R.N. 22:37 02/17/2017 Flagyl (MetroNIDAZOLE) PO 500 mg given. Allergies verified and confirmed 5 rights. --22:42 Donato Black R.N. DISPOSITION / DISCHARGE 22:29 02/17/17. BP: 100/57 taken on the left arm, via an automated monitor, while sitting. HR: 74 (regular, normal rate and strong). RR: 16 (regular, unlabored and normal). O2 saturation: 100% on room air. Temp: 97.7 F (oral). Pain level now: 0/10. --22:30 Cristel Solares R.N. Departure time: 22:39. Condition at departure: stable. No learning barriers present. Discharge instructions provided and reviewed with welfare interviewer and the patient. Reviewed medication(s) side effects, precautions, dosing and course information. Prescription(s) given to the patient. Patient verbalized understanding. Written instructions provided in [place]an. The patient was discharged home and accompanied by welfare interviewer. She left the Emergency Department ambulatory and via private vehicle. Physician driving. FALL RISK ASSESSMENT: Fall risk assessment completed. No fall risk identified. --22:39 Donato Black R.N. Locked/Released at 02/17/2017 22:43 by Donato Black R.N.
--- NOTE | 2017-02-18 03:30 | ED DISCHARGE INSTRUCTIONS ---
Patient: MOISES CANALES General Instructions [facility] VisitID: [id number] [place] [address] 21y, F Registration Date/Time: 02/17/2017 Acute mild bacterial vaginitis INSTRUCTIONS Prescription Medications: Flagyl 500 mg: Take 1 tablet orally every 12 hours for 7 days. No refill. Substitution is permissible Follow-up: Follow up with your doctor in about two days. Call for an appointment. Screening today revealed the patient's blood pressure to be in the normal range. ADDITIONAL INFORMATION Bacterial Vaginosis You have a bacterial infection of the vagina called bacterial vaginosis (BV). It may also be called gardnerella or non-specific vaginitis. BV occurs when the "bad" bacteria outnumber the "good" bacteria that are normally present in the vagina. Symptoms include foul-smelling vaginal discharge (most noticeable after vaginal intercourse). There may also be burning with urination. The burning is caused as the urine passes over the inflamed outer vaginal area. The cause of bacterial vaginosis is not certain. However, your risk is higher if you recently began a new sexual relationship, or have had many sex partners in the past. Your risk is also higher if you douche often. While bacterial vaginosis most often occurs only in sexually active women, this is not a true sexually transmitted disease. You did not get this from your partner. You cannot give it to your partner. The infection may be related to temporary changes in the pH of vaginal fluids after being exposed to semen. Home Care: Keep the genital area clean and free of discharge. Do this by wearing an absorbent sanitary pad and changing it often. Shower daily. When you shower, clean the outer vaginal area with plain soap and water. Do not douche during treatment unless advised to do so by your doctor. Routine douching after treatment is no longer recommended to clean the vagina. It raises your risk of vaginal infection and pelvic inflammatory disease. Avoid having sex until you have finished all antibiotic medicine and all symptoms have gone away. Wear cotton underwear or cotton-lined panty hose. Dont wear pants that are too tight. Limiting the number of sex partners you have lowers your risk of this and other vaginal infections, STDs, and HIV. Take all medicine as directed until it is gone, even if you are feeling better. If you dont do this, symptoms might return. Follow Up with your doctor if symptoms dont go away after the medicine is finished. Get Prompt Medical Attention if any of the following occur: Fever of 100.4F (38C) or higher, or as directed by your healthcare provider Lower abdominal pain Rash or joint pain Painful sores around the outer vaginal area or on your partners penis Metronidazole Oral tablet What is this medicine? METRONIDAZOLE (me troe NI da zole) is an antiinfective. It is used to treat certain kinds of bacterial and protozoal infections. It will not work for colds, flu, or other viral infections. How should I use this medicine? Take this medicine by mouth with a full glass of water. Follow the directions on the prescription label. Take your medicine at regular intervals. Do not take your medicine more often than directed. Take all of your medicine as directed even if you think you are better. Do not skip doses or stop your medicine early. Talk to your drama therapist regarding the use of this medicine in children. Special care may be needed. What side effects may I notice from receiving this medicine? Side effects that you should report to your doctor or health career services representative as soon as possible: allergic reactions like skin rash or hives, swelling of the face, lips, or tongue confusion, clumsiness difficulty speaking discolored or sore mouth dizziness fever, infection numbness, tingling, pain or weakness in the hands or feet trouble passing urine or change in the amount of urine redness, blistering, peeling or loosening of the skin, including inside the mouth seizures unusually weak or tired vaginal irritation, dryness, or discharge Side effects that usually do not require medical attention (report to your doctor or health career services representative if they continue or are bothersome): diarrhea headache irritability metallic taste nausea stomach pain or cramps trouble sleeping What may interact with this medicine? Do not take this medicine with any of the following medications: alcohol or any product that contains alcohol amprenavir oral solution cisapride disulfiram dofetilide dronedarone paclitaxel injection pimozide ritonavir oral solution sertraline oral solution sulfamethoxazole-trimethoprim injection thioridazine ziprasidone This medicine may also interact with the following medications: cimetidine lithium other medicines that prolong the QT interval (cause an abnormal heart rhythm) phenobarbital phenytoin warfarin What if I miss a dose? If you miss a dose, take it as soon as you can. If it is almost time for your next dose, take only that dose. Do not take double or extra doses. Where should I keep my medicine? Keep out of the reach of children. Store at room temperature below 25 degrees C (77 degrees F). Protect from light. Keep container tightly closed. Throw away any unused medicine after the expiration date. What should I tell my health care provider before I take this medicine? They need to know if you have any of these conditions: anemia or other blood disorders disease of the nervous system fungal or yeast infection if you drink alcohol containing drinks liver disease seizures an unusual or allergic reaction to metronidazole, or other medicines, foods, dyes, or preservatives or trying to get breast-feeding What should I watch for while using this medicine? Tell your doctor or health career services representative if your symptoms do not improve or if they get worse. You may get drowsy or dizzy. Do not drive, use machinery, or do anything that needs mental alertness until you know how this medicine affects you. Do not stand or sit up quickly, especially if you are an older patient. This reduces the risk of dizzy or fainting spells. Avoid alcoholic drinks while you are taking this medicine and for three days afterward. Alcohol may make you feel dizzy, sick, or flushed. If you are being treated for a sexually transmitted disease, avoid sexual contact until you have finished your treatment. Your sexual partner may also need treatment. You have been given the following additional information: Vaginitis, Bacterial Metronidazole Oral tablet (Electronically signed by Shashank Garcia Dr. 02/18/2017 3:30)
--- NOTE | 2017-02-18 03:30 | ED MAR SUMMARY ---
..... Medication Administration Record [facility] [address] [place] [address] Patient: MOISES CANALES Visit ID: [id number] 21y, F Weight: 78.4 kg Height/Length: 65 in BMI: 28.8 ALLERGIES: No Known Drug Allergy Given 22:37 02/17/2017 Donato Black RDevonNDevon Medication Administered: FLAGYL [PO] (METRONIDAZOLE), Dose: 500 mg PO. Medication Ordered: Flagyl PO 500 mg (NOW).
--- NOTE | 2017-02-18 03:30 | ED MAR SUMMARY ---
..... Medication Administration Record [facility] [address] [place] [address] Patient: MOISES CANALES Visit ID: [id number] 21y, F Weight: 78.4 kg Height/Length: 65 in BMI: 28.8 ALLERGIES: No Known Drug Allergy Given 22:37 02/17/2017 Donato Black RDevonNDevon Medication Administered: FLAGYL [PO] (METRONIDAZOLE), Dose: 500 mg PO. Medication Ordered: Flagyl PO 500 mg (NOW).
--- NOTE | 2017-02-18 03:30 | ED DISCHARGE INSTRUCTIONS ---
Patient: MOISES CANALES General Instructions [facility] VisitID: [id number] [place] [address] 21y, F Registration Date/Time: 02/17/2017 Acute mild bacterial vaginitis INSTRUCTIONS Prescription Medications: Flagyl 500 mg: Take 1 tablet orally every 12 hours for 7 days. No refill. Substitution is permissible Follow-up: Follow up with your doctor in about two days. Call for an appointment. Screening today revealed the patient's blood pressure to be in the normal range. ADDITIONAL INFORMATION Bacterial Vaginosis You have a bacterial infection of the vagina called bacterial vaginosis (BV). It may also be called gardnerella or non-specific vaginitis. BV occurs when the "bad" bacteria outnumber the "good" bacteria that are normally present in the vagina. Symptoms include foul-smelling vaginal discharge (most noticeable after vaginal intercourse). There may also be burning with urination. The burning is caused as the urine passes over the inflamed outer vaginal area. The cause of bacterial vaginosis is not certain. However, your risk is higher if you recently began a new sexual relationship, or have had many sex partners in the past. Your risk is also higher if you douche often. While bacterial vaginosis most often occurs only in sexually active women, this is not a true sexually transmitted disease. You did not get this from your partner. You cannot give it to your partner. The infection may be related to temporary changes in the pH of vaginal fluids after being exposed to semen. Home Care: Keep the genital area clean and free of discharge. Do this by wearing an absorbent sanitary pad and changing it often. Shower daily. When you shower, clean the outer vaginal area with plain soap and water. Do not douche during treatment unless advised to do so by your doctor. Routine douching after treatment is no longer recommended to clean the vagina. It raises your risk of vaginal infection and pelvic inflammatory disease. Avoid having sex until you have finished all antibiotic medicine and all symptoms have gone away. Wear cotton underwear or cotton-lined panty hose. Dont wear pants that are too tight. Limiting the number of sex partners you have lowers your risk of this and other vaginal infections, STDs, and HIV. Take all medicine as directed until it is gone, even if you are feeling better. If you dont do this, symptoms might return. Follow Up with your doctor if symptoms dont go away after the medicine is finished. Get Prompt Medical Attention if any of the following occur: Fever of 100.4F (38C) or higher, or as directed by your healthcare provider Lower abdominal pain Rash or joint pain Painful sores around the outer vaginal area or on your partners penis Metronidazole Oral tablet What is this medicine? METRONIDAZOLE (me troe NI da zole) is an antiinfective. It is used to treat certain kinds of bacterial and protozoal infections. It will not work for colds, flu, or other viral infections. How should I use this medicine? Take this medicine by mouth with a full glass of water. Follow the directions on the prescription label. Take your medicine at regular intervals. Do not take your medicine more often than directed. Take all of your medicine as directed even if you think you are better. Do not skip doses or stop your medicine early. Talk to your academic interventionist regarding the use of this medicine in children. Special care may be needed. What side effects may I notice from receiving this medicine? Side effects that you should report to your doctor or health manager intensive care as soon as possible: allergic reactions like skin rash or hives, swelling of the face, lips, or tongue confusion, clumsiness difficulty speaking discolored or sore mouth dizziness fever, infection numbness, tingling, pain or weakness in the hands or feet trouble passing urine or change in the amount of urine redness, blistering, peeling or loosening of the skin, including inside the mouth seizures unusually weak or tired vaginal irritation, dryness, or discharge Side effects that usually do not require medical attention (report to your doctor or health manager intensive care if they continue or are bothersome): diarrhea headache irritability metallic taste nausea stomach pain or cramps trouble sleeping What may interact with this medicine? Do not take this medicine with any of the following medications: alcohol or any product that contains alcohol amprenavir oral solution cisapride disulfiram dofetilide dronedarone paclitaxel injection pimozide ritonavir oral solution sertraline oral solution sulfamethoxazole-trimethoprim injection thioridazine ziprasidone This medicine may also interact with the following medications: cimetidine lithium other medicines that prolong the QT interval (cause an abnormal heart rhythm) phenobarbital phenytoin warfarin What if I miss a dose? If you miss a dose, take it as soon as you can. If it is almost time for your next dose, take only that dose. Do not take double or extra doses. Where should I keep my medicine? Keep out of the reach of children. Store at room temperature below 25 degrees C (77 degrees F). Protect from light. Keep container tightly closed. Throw away any unused medicine after the expiration date. What should I tell my health care provider before I take this medicine? They need to know if you have any of these conditions: anemia or other blood disorders disease of the nervous system fungal or yeast infection if you drink alcohol containing drinks liver disease seizures an unusual or allergic reaction to metronidazole, or other medicines, foods, dyes, or preservatives or trying to get breast-feeding What should I watch for while using this medicine? Tell your doctor or health manager intensive care if your symptoms do not improve or if they get worse. You may get drowsy or dizzy. Do not drive, use machinery, or do anything that needs mental alertness until you know how this medicine affects you. Do not stand or sit up quickly, especially if you are an older patient. This reduces the risk of dizzy or fainting spells. Avoid alcoholic drinks while you are taking this medicine and for three days afterward. Alcohol may make you feel dizzy, sick, or flushed. If you are being treated for a sexually transmitted disease, avoid sexual contact until you have finished your treatment. Your sexual partner may also need treatment. You have been given the following additional information: Vaginitis, Bacterial Metronidazole Oral tablet (Electronically signed by Shashank Garcia Dr. 02/18/2017 3:30)
--- NOTE | 2017-02-18 03:31 | ED MED RECONCILIATION SUMMARY ---
Patient: MOISES CANALES Medication Reconciliation Report [facility] VisitID: [id number] [place] [address] 21y, F Registration Date/Time: 02/17/2017 Weight: 78.4 kg Height/Length: 65 in. BMI: 28.8 ALLERGIES: No Known Drug Allergy The patient's Home Medications are listed below: NONE. The source(s) of the original Home Medication information: patient The following Medications were given to the patient in the Emergency Department: Flagyl [PO] PO 500 mg, administered: 02/17/2017 10:37:00 PM The following Medications were prescribed to the patient: Flagyl 500 mg: Take 1 tablet orally every 12 hours for 7 days. No refill. Substitution is permissible -- Shashank Garcia Dr.
--- NOTE | 2017-02-18 03:31 | ED MED RECONCILIATION SUMMARY ---
Patient: MOISES CANALES Medication Reconciliation Report [facility] VisitID: [id number] [place] [address] 21y, F Registration Date/Time: 02/17/2017 Weight: 78.4 kg Height/Length: 65 in. BMI: 28.8 ALLERGIES: No Known Drug Allergy The patient's Home Medications are listed below: NONE. The source(s) of the original Home Medication information: patient The following Medications were given to the patient in the Emergency Department: Flagyl [PO] PO 500 mg, administered: 02/17/2017 10:37:00 PM The following Medications were prescribed to the patient: Flagyl 500 mg: Take 1 tablet orally every 12 hours for 7 days. No refill. Substitution is permissible -- Shashank Garcia Dr.
== END 2017-02-17 22:39 | disposition home or self-care (01) ==
LOC: ED SRH 20:38
DX: O23.599 Infection of other part of genital tract in pregnancy, unspecified trimester (principal); N76.0 Acute vaginitis; B96.89 Other specified bacterial agents as the cause of diseases classified elsewhere
CPT/HCPCS: 90004; 90195; 90469; 91227; 91228

== ENCOUNTER 2017-03-01 22:27 | Emergency (ER) | payer OTHER ==
--- NOTE | 2017-03-02 00:10 | ED NURSING NOTES ---
Clinical Report - Nurses [facility] [address] [place] [address] 03/01/2017 22:27 Patient: MOISES CANALES TRIAGE Triage time 22:31. Acuity: LEVEL 3. Chief Complaint: BACK PAIN. --22:38 Chris Richey R.N. 22:31 03/01/17. BP: 117/69. HR: 88. RR: 18. O2 saturation: 100%. Temp: 97.7 F. Pain level now: 06/03. --22:38 Chris Richey R.N. Weight: 81.6 kg stated. Height/Length: 65 inches Per Patient. BMI: 30. --22:36 Chris Richey R.N. Medications None. --22:35 Chris Richey R.N. Medication/allergy information source: the patient. --22:38 Chris Richey R.N. Allergies No Known Drug Allergy. --22:35 Chris Richey R.N. History Arrived by private vehicle. Historian: patient. Accompanied by spouse. ( Low back pain started yesterday while carrying her son, pain goes around the abdomen. Pain increases when sitting or walking. Denies any urinary discomfort.). This started yesterday. She has had weakness of the right leg and left leg. No history of recent trauma. Treatment PREVENTION RN: None. PAST MEDICAL HX: Last normal menstrual period- Nov 09. Currently . In 3rd trimester. Has had care in clinic. G 3. P 1. Ab 1. SOCIAL HX: No infectious disease exposure. --22:38 Chris Richey R.N. SURGERY HX: No history of previous surgery. --22:41 Chris Richey R.N. PROBLEMS: Anxiety Reaction. PTSD. Problems. OB History. Intrauterine . URI. Vaginitis. Contusion. Biliary Colic. Abdominal Pain. Gallstone(s). Spotting, . Threatened . . Depression. Immunizations. LNMP - Last Normal Menstrual Period. Suicidal Ideation. --22:36 Chris Richey R.N. Interventions ID band on patient. To room. --22:38 Chris Richey R.N. PHYSICAL ASSESSMENT Ambulatory to room. GENERAL / NEURO / PSYCH: Alert. Oriented X 4. Appears in no acute distress. Appears in pain. RESPIRATORY: Respirations not labored. Chest nontender. Breath sounds within normal limits. CVS: Normal heart rate and rhythm. Capillary refill less than 2 seconds. GI / : Abdomen nontender. Bowel sounds within normal limits. EXTREMITIES: Sensation intact in extremities. ROM of extremities within normal limits. BACK: Normal inspection of the neck and back. Limited ROM of the back. --22:40 Chris Richey R.N. NURSING PROGRESS NOTES Patient gowned. Head of bed elevated. Reassurance given. Patient identifiers checked. Call light placed in reach. Side rails up x 1. Bed placed in lowest position. Brakes of bed on. Patient ready for evaluation- ED physician and ASSOCIATE PROFESSOR OF MUSICOLOGY notified. --22:40 Chris Richey R.N. The patient is calm and resting quietly. Overall patient status is the same- she states feels the same. ( FHR 150 bpm). GENERAL / NEURO / PSYCH: Alert. Oriented X 4. No sensory deficit. RESPIRATORY: No respiratory distress. Breath sounds normal. BACK: The patient reports lower back pain is still present and currently moderate in severity. SKIN: Skin is warm and dry. Skin color within normal limits. --23:37 Chris Richey R.N. DISPOSITION / DISCHARGE Condition at departure: improved. No learning barriers present. Discharge instructions provided and reviewed with the patient. Reviewed referral to an sawmill equipment operator for followup. Patient verbalized understanding. Written instructions provided in Georgian. The patient was discharged home and accompanied by spouse. She left the Emergency Department ambulatory and via private vehicle. Spouse driving. --00:24 Chris Richey R.N. 00:20 03/02/17. BP: 109/58. HR: 72. RR: 16. O2 saturation: 100%. Temp: 98.2 F (oral). Pain level now: 04/02. --00:24 Chris Richey R.N. Departure time: 00:24. --00:25 Chris Richey R.N. Locked/Released at 03/02/2017 0:25 by Chris Richey R.N.
--- NOTE | 2017-03-02 00:10 | ED ORDER SUMMARY ---
..... Patient: MOISES CANALES OrderSheet [facility] VisitID: [id number] [place] [address] 21y, F Registration Date/Time: 03/01/2017 ORDER SHEET Weight: 81.6 kg (stated) Allergies: No Known Drug Allergy GENERAL ORDERS: - (CATH UA) (23:03/01/2017 Vita ALDANA) (23:57 LMuller) UA-Culture if indicated Urgent (23:03/01/2017 Vita ALDANA) (Ack 23:17 Sabino) (23:21 Hai R.N.) - (CHECK HEART TONES) (23:09 03/01/2017 Vita ALDANA) (Ack 23:22 Hai R.N.) (23:34 Hai R.N.) MEDICATION ORDERS: IV FLUIDS: ORDER SHEET NOTES: [Electronically signed by Chris Richey R.N. (00:25 03/02/2017)] [Electronically signed by Tino Camacho MD (13:54 03/05/2017)] [Electronically locked/signed by Chris Richey R.N. (00:25 03/02/2017)]
--- NOTE | 2017-03-02 00:10 | ED CLINICAL REPORT ---
Clinical Report - Physicians/Mid Levels [facility] [address] [place] [address] 03/01/2017 22:27 Patient: MOISES CANALES Time Seen: 23:01. HISTORY OF PRESENT ILLNESS Chief Complaint: ABDOMINAL PAIN and and 16 WEEK IUP. At its maximum, severity described as moderate. When seen in the E.D., severity described as moderate. Modifying factors. Not worsened by anything. Not relieved by anything. (Back pain yesterday Several days of abdominal pain). Is still present. It was gradual in onset and has been waxing/waning. It is described as cramping. No nausea, vomiting or diarrhea. (Last OB visit early january. IUP on US at 11 weeks gestation here at [facility]). Similar symptoms previously: None. Recent medical care: The patient was seen recently by a health care provider. ( see above Also seen for bacterial vaginosis at 14 weeks gestation.). REVIEW OF SYSTEMS No constipation, black stools, hematemesis, difficulty with urination or pain with urination. No urinary frequency, abnormal bleeding, fever, chest pain or difficulty breathing. No cough. Currently : In 2nd trimester. Has had care by manipulator operator. Recent sonogram showed viable intrauterine . G 4. P 1. Ab 2. PAST HISTORY PCP: OB Dr [facility] [place] Anxiety Reaction. PTSD. Biliary Colic. . Depression. Suicidal Ideation. ADDITIONAL SURGERIES: Dilatation & Curettage. SOCIAL HISTORY Never smoker. ADDITIONAL NOTES The nursing notes have been reviewed. PHYSICAL EXAM Vital Signs: 03/02/2017 00:20 BP: 109/58. HR: 72. RR: 16. O2 saturation: 100%. Temp: 98.2 F. Pain level now: 710. 03/01/2017 22:31 BP: 117/69. HR: 88. RR: 18. O2 saturation: 100%. Temp: 97.7 F. Pain level now: 9/10. Appearance: No acute distress. (Despite reported pain scale of 7-9 patient is resting comfortably in NAD). Eyes: Eyes normal inspection. No scleral icterus. ENT: Pharynx normal. CVS: Heart sounds normal. Respiratory: No respiratory distress. Breath sounds normal. Abdomen: Mild tenderness in the lower abdomen. Gravid uterus palpable to midpoint between pubic symphysis and umbilicus. No rebound tenderness or guarding. Back: No CVA tenderness. Skin: Skin warm. Normal skin color. Extremities: Extremities exhibit normal ROM. No lower extremity edema. LABS, X-RAYS, AND EKG Laboratory Tests: UA-Culture if indicated: (OBEY: 03/01/2017 22:45) ( [facility] [place] 23:46) Final results Test Result Flag Units (Reference) URINE COLOR YELLOW URINE APPEARANCE SLIGHTLY HAZY URINE GLUCOSE NEGATIVE (NEGATIVE) URINE BILIRUBIN NEGATIVE (NEGATIVE) URINE KETONE NEGATIVE (NEGATIVE) URINE SPECIFIC GRAVITY 1.025 (1.010-1.030) URINE PH 6.0 (5.0-8.0) URINE PROTEIN NEGATIVE (NEGATIVE) URINE UROBILINOGEN 0.2 EU/dL (0.2-1.0) URINE NITRITE NEGATIVE (NEGATIVE) URINE BLOOD NEGATIVE (NEGATIVE) URINE LEUK ESTERASE TRACE (NEGATIVE) URINE RBC 0-1 rbc/hpf (0-1) URINE WBC 3-5 wbc/hpf (0-1) URINE EPITHELIAL CELLS 5-10 EPI/hpf (0-5) URINE BACTERIA NONE SEEN (NONE SEEN) URINE COMMENT CULTURE INDICATED 1+ AMORPHOUSURINE CULTURES ARE SET-UP BASED ON THE FOLLOWING CRITERIA:POSITIVE NITRITEPOSITIVE LEUKOCYTE ESTERASEGREATER THAN 10 WHITE BLOOD CELLSMODERATE (2+) OR GREATER BACTERIA Culture, Urine: (OBEY: 03/01/2017 22:45) ( [facility] [place] 14:35) Final results Test Result Flag Units (Reference) CULTURE, URINE DATE: 03/03/17 NO SIGNIFICANT ISOLATION: NO SIGNIFICANT ISOLATION PRELIM REPORT: FINAL REPORT . PROGRESS AND PROCEDURES Course of Care: The patient has a known IUP. Her current exam is not CW an acute surgical emergency. She does not have a UTI. At 16 weeks the patient's has not reached viability. This does not appear to be an inevitable . 23:15 03/01/17. I discussed the management of this case with the [facility] provider operations support representative, Dr Cisneros. Disposition: Condition: stable. CLINICAL IMPRESSION SECOND TRIMESTER LOWER ABDOMINAL PAIN. INSTRUCTIONS (SEE YOUR OB DR TOMORROW. IMMEDIATE RECHECK IF WORSE). Follow-up: Follow up with your doctor tomorrow. Understanding of the discharge instructions verbalized by patient. (Electronically signed by Tino Camacho MD 03/05/2017 13:54)
--- NOTE | 2017-03-02 00:10 | ED CLINICAL REPORT ---
Clinical Report - Physicians/Mid Levels [facility] [address] [place] [address] 03/01/2017 22:27 Patient: MOISES CANALES Time Seen: 23:01. HISTORY OF PRESENT ILLNESS Chief Complaint: ABDOMINAL PAIN and and 16 WEEK IUP. At its maximum, severity described as moderate. When seen in the E.D., severity described as moderate. Modifying factors. Not worsened by anything. Not relieved by anything. (Back pain yesterday Several days of abdominal pain). Is still present. It was gradual in onset and has been waxing/waning. It is described as cramping. No nausea, vomiting or diarrhea. (Last OB visit early january. IUP on US at 11 weeks gestation here at [facility]). Similar symptoms previously: None. Recent medical care: The patient was seen recently by a health care provider. ( see above Also seen for bacterial vaginosis at 14 weeks gestation.). REVIEW OF SYSTEMS No constipation, black stools, hematemesis, difficulty with urination or pain with urination. No urinary frequency, abnormal bleeding, fever, chest pain or difficulty breathing. No cough. Currently : In 2nd trimester. Has had care by design coordinator. Recent sonogram showed viable intrauterine . G 4. P 1. Ab 2. PAST HISTORY PCP: OB Dr [facility] [place] Anxiety Reaction. PTSD. Biliary Colic. . Depression. Suicidal Ideation. ADDITIONAL SURGERIES: Dilatation & Curettage. SOCIAL HISTORY Never smoker. ADDITIONAL NOTES The nursing notes have been reviewed. PHYSICAL EXAM Vital Signs: 03/02/2017 00:20 BP: 109/58. HR: 72. RR: 16. O2 saturation: 100%. Temp: 98.2 F. Pain level now: 710. 03/01/2017 22:31 BP: 117/69. HR: 88. RR: 18. O2 saturation: 100%. Temp: 97.7 F. Pain level now: 9/10. Appearance: No acute distress. (Despite reported pain scale of 7-9 patient is resting comfortably in NAD). Eyes: Eyes normal inspection. No scleral icterus. ENT: Pharynx normal. CVS: Heart sounds normal. Respiratory: No respiratory distress. Breath sounds normal. Abdomen: Mild tenderness in the lower abdomen. Gravid uterus palpable to midpoint between pubic symphysis and umbilicus. No rebound tenderness or guarding. Back: No CVA tenderness. Skin: Skin warm. Normal skin color. Extremities: Extremities exhibit normal ROM. No lower extremity edema. LABS, X-RAYS, AND EKG Laboratory Tests: UA-Culture if indicated: (OBEY: 03/01/2017 22:45) ( [facility] [place]/01[place] 23:46) Final results Test Result Flag Units (Reference) URINE COLOR YELLOW URINE APPEARANCE SLIGHTLY HAZY URINE GLUCOSE NEGATIVE (NEGATIVE) URINE BILIRUBIN NEGATIVE (NEGATIVE) URINE KETONE NEGATIVE (NEGATIVE) URINE SPECIFIC GRAVITY 1.025 (1.010-1.030) URINE PH 6.0 (5.0-8.0) URINE PROTEIN NEGATIVE (NEGATIVE) URINE UROBILINOGEN 0.2 EU/dL (0.2-1.0) URINE NITRITE NEGATIVE (NEGATIVE) URINE BLOOD NEGATIVE (NEGATIVE) URINE LEUK ESTERASE TRACE (NEGATIVE) URINE RBC 0-1 rbc/hpf (0-1) URINE WBC 3-5 wbc/hpf (0-1) URINE EPITHELIAL CELLS 5-10 EPI/hpf (0-5) URINE BACTERIA NONE SEEN (NONE SEEN) URINE COMMENT CULTURE INDICATED 1+ AMORPHOUSURINE CULTURES ARE SET-UP BASED ON THE FOLLOWING CRITERIA:POSITIVE NITRITEPOSITIVE LEUKOCYTE ESTERASEGREATER THAN 10 WHITE BLOOD CELLSMODERATE (2+) OR GREATER BACTERIA Culture, Urine: (OBEY: 03/01/2017 22:45) ( [facility] [place] 03/03/2017 14:35) Final results Test Result Flag Units (Reference) CULTURE, URINE DATE: 03/03/17 NO SIGNIFICANT ISOLATION: NO SIGNIFICANT ISOLATION PRELIM REPORT: FINAL REPORT . PROGRESS AND PROCEDURES Course of Care: The patient has a known IUP. Her current exam is not CW an acute surgical emergency. She does not have a UTI. At 16 weeks the patient's has not reached viability. This does not appear to be an inevitable . 23:15 03/01/17. I discussed the management of this case with the [facility] provider component design engineer, Dr Cisneros. Disposition: Condition: stable. CLINICAL IMPRESSION SECOND TRIMESTER LOWER ABDOMINAL PAIN. INSTRUCTIONS (SEE YOUR OB DR TOMORROW. IMMEDIATE RECHECK IF WORSE). Follow-up: Follow up with your doctor tomorrow. Understanding of the discharge instructions verbalized by patient. (Electronically signed by Tino Camacho MD 03/05/2017 13:54)
--- NOTE | 2017-03-02 00:10 | ED ORDER SUMMARY ---
..... Patient: MOISES CANALES OrderSheet [facility] VisitID: [id number] [place] [address] 21y, F Registration Date/Time: 03/01/2017 ORDER SHEET Weight: 81.6 kg (stated) Allergies: No Known Drug Allergy GENERAL ORDERS: - (CATH UA) (23:03/01/2017 Vita ALDANA) (23:57 LMuller) UA-Culture if indicated Urgent (23:03/01/2017 Vita ALDANA) (Ack 23:17 Sabino) (23:21 Hai R.N.) - (CHECK HEART TONES) (23:09 03/01/2017 Vita ALDANA) (Ack 23:22 Hai R.N.) (23:34 Hai R.N.) MEDICATION ORDERS: IV FLUIDS: ORDER SHEET NOTES: [Electronically signed by Chris Richey R.N. (00:25 03/02/2017)] [Electronically signed by Tino Camacho MD (13:54 03/05/2017)] [Electronically locked/signed by Chris Richey R.N. (00:25 03/02/2017)]
--- NOTE | 2017-03-02 00:10 | ED NURSING NOTES ---
Clinical Report - Nurses [facility] [address] [place] [address] 03/01/2017 22:27 Patient: MOISES CANALES TRIAGE Triage time 22:31. Acuity: LEVEL 3. Chief Complaint: BACK PAIN. --22:38 Chris Richey R.N. 22:31 03/01/17. BP: 117/69. HR: 88. RR: 18. O2 saturation: 100%. Temp: 97.7 F. Pain level now: 06/03. --22:38 Chris Richey R.N. Weight: 81.6 kg stated. Height/Length: 65 inches Per Patient. BMI: 30. --22:36 Chris Richey R.N. Medications None. --22:35 Chris Richey R.N. Medication/allergy information source: the patient. --22:38 Chris Richey R.N. Allergies No Known Drug Allergy. --22:35 Chris Richey R.N. History Arrived by private vehicle. Historian: patient. Accompanied by spouse. ( Low back pain started yesterday while carrying her son, pain goes around the abdomen. Pain increases when sitting or walking. Denies any urinary discomfort.). This started yesterday. She has had weakness of the right leg and left leg. No history of recent trauma. Treatment WASHERY BOSS: None. PAST MEDICAL HX: Last normal menstrual period- Nov 09. Currently . In 3rd trimester. Has had care in clinic. G 3. P 1. Ab 1. SOCIAL HX: No infectious disease exposure. --22:38 Chris Richey R.N. SURGERY HX: No history of previous surgery. --22:41 Chris Richey R.N. PROBLEMS: Anxiety Reaction. PTSD. Problems. OB History. Intrauterine . URI. Vaginitis. Contusion. Biliary Colic. Abdominal Pain. Gallstone(s). Spotting, . Threatened . . Depression. Immunizations. LNMP - Last Normal Menstrual Period. Suicidal Ideation. --22:36 Chris Richey R.N. Interventions ID band on patient. To room. --22:38 Chris Richey R.N. PHYSICAL ASSESSMENT Ambulatory to room. GENERAL / NEURO / PSYCH: Alert. Oriented X 4. Appears in no acute distress. Appears in pain. RESPIRATORY: Respirations not labored. Chest nontender. Breath sounds within normal limits. CVS: Normal heart rate and rhythm. Capillary refill less than 2 seconds. GI / : Abdomen nontender. Bowel sounds within normal limits. EXTREMITIES: Sensation intact in extremities. ROM of extremities within normal limits. BACK: Normal inspection of the neck and back. Limited ROM of the back. --22:40 Chris Richey R.N. NURSING PROGRESS NOTES Patient gowned. Head of bed elevated. Reassurance given. Patient identifiers checked. Call light placed in reach. Side rails up x 1. Bed placed in lowest position. Brakes of bed on. Patient ready for evaluation- ED physician and TRANSMITTER TESTER notified. --22:40 Chris Richey R.N. The patient is calm and resting quietly. Overall patient status is the same- she states feels the same. ( FHR 150 bpm). GENERAL / NEURO / PSYCH: Alert. Oriented X 4. No sensory deficit. RESPIRATORY: No respiratory distress. Breath sounds normal. BACK: The patient reports lower back pain is still present and currently moderate in severity. SKIN: Skin is warm and dry. Skin color within normal limits. --23:37 Chris Richey R.N. DISPOSITION / DISCHARGE Condition at departure: improved. No learning barriers present. Discharge instructions provided and reviewed with the patient. Reviewed referral to an woodworking machine offbearer for followup. Patient verbalized understanding. Written instructions provided in Occitan. The patient was discharged home and accompanied by spouse. She left the Emergency Department ambulatory and via private vehicle. Spouse driving. --00:24 Chris Richey R.N. 00:20 03/02/17. BP: 109/58. HR: 72. RR: 16. O2 saturation: 100%. Temp: 98.2 F (oral). Pain level now: 04/02. --00:24 Chris Richey R.N. Departure time: 00:24. --00:25 Chris Richey R.N. Locked/Released at 03/02/2017 0:25 by Chris Richey R.N.
--- NOTE | 2017-03-05 13:55 | ED DISCHARGE INSTRUCTIONS ---
Patient: MOISES CANALES General Instructions [facility] VisitID: [id number] [place] [address] 21y, F Registration Date/Time: 03/01/2017 SECOND TRIMESTER LOWER ABDOMINAL PAIN. INSTRUCTIONS (SEE YOUR OB DR TOMORROW. IMMEDIATE RECHECK IF WORSE). Follow-up: Follow up with your doctor tomorrow. Understanding of the discharge instructions verbalized by patient. (Electronically signed by Tino Camacho MD 03/05/2017 13:54)
--- NOTE | 2017-03-05 13:55 | ED MED RECONCILIATION SUMMARY ---
Patient: MOISES CANALES Medication Reconciliation Report [facility] VisitID: [id number] [place] [address] 21y, F Registration Date/Time: 03/01/2017 Weight: 81.6 kg Height/Length: 65 in. BMI: 30.0 ALLERGIES: No Known Drug Allergy The patient's Home Medications are listed below: NONE. The source(s) of the original Home Medication information: patient The following Medications were given to the patient in the Emergency Department: None. The following Medications were prescribed to the patient: None.
--- NOTE | 2017-03-05 13:55 | ED MED RECONCILIATION SUMMARY ---
Patient: MOISES CANALES Medication Reconciliation Report [facility] VisitID: [id number] [place] [address] 21y, F Registration Date/Time: 03/01/2017 Weight: 81.6 kg Height/Length: 65 in. BMI: 30.0 ALLERGIES: No Known Drug Allergy The patient's Home Medications are listed below: NONE. The source(s) of the original Home Medication information: patient The following Medications were given to the patient in the Emergency Department: None. The following Medications were prescribed to the patient: None.
--- NOTE | 2017-03-05 13:55 | ED MAR SUMMARY ---
..... Medication Administration Record [facility] [address] [place], [place] [id number] Patient: MOISES CANALES Visit ID: [id number] 21y, F Weight: 81.6 kg Height/Length: 65 in BMI: 30 ALLERGIES: No Known Drug Allergy
--- NOTE | 2017-03-05 13:55 | ED DISCHARGE INSTRUCTIONS ---
Patient: MOISES CANALES General Instructions [facility] VisitID: [id number] [place] [address] 21y, F Registration Date/Time: 03/01/2017 SECOND TRIMESTER LOWER ABDOMINAL PAIN. INSTRUCTIONS (SEE YOUR OB DR TOMORROW. IMMEDIATE RECHECK IF WORSE). Follow-up: Follow up with your doctor tomorrow. Understanding of the discharge instructions verbalized by patient. (Electronically signed by Tino Camacho MD 03/05/2017 13:54)
--- NOTE | 2017-03-05 13:55 | ED MAR SUMMARY ---
..... Medication Administration Record [facility] [address] [place], [place] [id number] Patient: MOISES CANALES Visit ID: [id number] 21y, F Weight: 81.6 kg Height/Length: 65 in BMI: 30 ALLERGIES: No Known Drug Allergy
== END 2017-03-02 00:24 | disposition home or self-care (01) ==
LOC: ED SRH 22:27
DX: O99.89 Other specified diseases and conditions complicating pregnancy, childbirth and the puerperium (principal); R10.33 Periumbilical pain; Z3A.16 16 weeks gestation of pregnancy
CPT/HCPCS: 90004; 90469

== ENCOUNTER 2017-03-20 14:55 | Emergency (ER) | payer OTHER ==
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
--- NOTE | 2017-03-20 17:42 | ED ORDER SUMMARY ---
..... Patient: MOISES CANALES OrderSheet [facility] VisitID: [id number] [place] [address] 21y, F Registration Date/Time: 03/20/2017 ORDER SHEET Weight: 83.0 kg (stated) Allergies: No Known Drug Allergy GENERAL ORDERS: US OB 2nd Trimester (n) Urgent (15:13 03/20/2017 EKoroleva P.A.-C) (Ack 15:17 LNations ER Tech1) (17:14 LAbe R.N.) CBC w Diff Urgent (15:13 03/20/2017 EKoroleva P.A.-C) (Ack 15:17 LNations ER Tech1) (17:14 LAbe R.N.) Serum Quantitative Urgent (15:13 03/20/2017 EKoroleva P.A.-C) (Ack 15:17 LNations ER Tech1) (17:14 LAbe R.N.) CMP Urgent (15:13 03/20/2017 EKoroleva P.A.-C) (Ack 15:17 LNations ER Tech1) (17:14 LAbe R.N.) Pelvic Exam Setup (15:27 03/20/2017 EKoroleva P.A.-C) (16:04 LAbe R.N.) MEDICATION ORDERS: RhoGAM IM 300 mcg (NOW) (16:34 03/20/2017 EKoroleva P.A.-C) (Ack 17:04 LAbe R.N.) (17:14 LAbe R.N.) IV FLUIDS: ORDER SHEET NOTES: [Electronically signed by Yumiko GarciaADevon-C (17:25 03/20/2017)] [Electronically signed by Leeann Taylor R.N. (17:43 03/20/2017)] [Electronically locked/signed by Leeann Taylor R.N. (17:43 03/20/2017)]
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
--- NOTE | 2017-03-20 17:42 | ED ORDER SUMMARY ---
..... Patient: MIOSES CANALES OrderSheet [facility] VisitID: [id number] [place] [address] 21y, F Registration Date/Time: 03/20/2017 ORDER SHEET Weight: 83.0 kg (stated) Allergies: No Known Drug Allergy GENERAL ORDERS: US OB 2nd Trimester (n) Urgent (15:13 03/20/2017 EKoroleva P.A.-C) (Ack 15:17 LNations ER Tech1) (17:14 LAbe R.N.) CBC w Diff Urgent (15:13 03/20/2017 EKoroleva P.A.-C) (Ack 15:17 LNations ER Tech1) (17:14 LAbe R.N.) Serum Quantitative Urgent (15:13 03/20/2017 EKoroleva P.A.-C) (Ack 15:17 LNations ER Tech1) (17:14 LAbe R.N.) CMP Urgent (15:13 03/20/2017 EKoroleva P.A.-C) (Ack 15:17 LNations ER Tech1) (17:14 LAbe R.N.) Pelvic Exam Setup (15:27 03/20/2017 EKoroleva P.A.-C) (16:04 LAbe R.N.) MEDICATION ORDERS: RhoGAM IM 300 mcg (NOW) (16:34 03/20/2017 EKoroleva P.A.-C) (Ack 17:04 LAbe R.N.) (17:14 LAbe R.N.) IV FLUIDS: ORDER SHEET NOTES: [Electronically signed by Yumiko GarciaADevon-C (17:25 03/20/2017)] [Electronically signed by Leeann Taylor R.N. (17:43 03/20/2017)] [Electronically locked/signed by Leeann Taylor R.N. (17:43 03/20/2017)]
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
--- NOTE | 2017-03-20 17:44 | ED MAR SUMMARY ---
..... Medication Administration Record [facility] [address] [place] [address] Patient: MOISES CANALES Visit ID: [id number] 21y, F Weight: 83.0 kg Height/Length: 65 in BMI: 30.5 ALLERGIES: No Known Drug Allergy Given 17:14 03/20/2017 Leeann Taylor R.N. Medication Administered: RHOGAM [IM], Dose: 300 mcg IM. Medication Ordered: RhoGAM IM 300 mcg (NOW).
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
--- NOTE | 2017-03-20 17:44 | ED MED RECONCILIATION SUMMARY ---
Patient: MOISES CANALES Medication Reconciliation Report [facility] VisitID: [id number] [address] [place] [address] 21y, F Registration Date/Time: 03/20/2017 Weight: 83.0 kg Height/Length: 65 in. BMI: 30.5 ALLERGIES: No Known Drug Allergy The patient's Home Medications are listed below: THE FOLLOWING MEDICATIONS NEED TO BE RECONCILED: Ferrous Sulfate Oral The source(s) of the original Home Medication information: patient The following Medications were given to the patient in the Emergency Department: Rhogam [IM] IM 300 mcg, administered: 03/20/2017 5:14:00 PM The following Medications were prescribed to the patient: None.
--- NOTE | 2017-03-20 17:44 | ED MAR SUMMARY ---
..... Medication Administration Record [facility] [address] [place] [address] Patient: MOISES CANALES Visit ID: [id number] 21y, F Weight: 83.0 kg Height/Length: 65 in BMI: 30.5 ALLERGIES: No Known Drug Allergy Given 17:14 03/20/2017 Leeann Taylor R.N. Medication Administered: RHOGAM [IM], Dose: 300 mcg IM. Medication Ordered: RhoGAM IM 300 mcg (NOW).
--- NOTE | 2017-03-20 17:44 | ED MED RECONCILIATION SUMMARY ---
Patient: MOISES CANALES Medication Reconciliation Report [facility] VisitID: [id number] [address] [place] [address] 21y, F Registration Date/Time: 03/20/2017 Weight: 83.0 kg Height/Length: 65 in. BMI: 30.5 ALLERGIES: No Known Drug Allergy The patient's Home Medications are listed below: THE FOLLOWING MEDICATIONS NEED TO BE RECONCILED: Ferrous Sulfate Oral The source(s) of the original Home Medication information: patient The following Medications were given to the patient in the Emergency Department: Rhogam [IM] IM 300 mcg, administered: 03/20/2017 5:14:00 PM The following Medications were prescribed to the patient: None.
== END 2017-03-20 17:40 | disposition home or self-care (01) ==
LOC: ED SRH 14:55
DX: S39.91XA Unspecified injury of abdomen, initial encounter (principal); O26.892 Other specified pregnancy related conditions, second trimester; Y04.2XXA Assault by strike against or bumped into by another person, initial encounter; Y93.9 Activity, unspecified; Y92.009 Unspecified place in unspecified non-institutional (private) residence as the place of occurrence of the external cause; Y99.9 Unspecified external cause status
CPT/HCPCS: 90100; 90197; 92237; 95059